=== PATIENT | male | born 1960 | race Caucasian/White ===

== ENCOUNTER 2019-03-22 12:30 | Outpatient (CLI) | payer MEDICARE, SELFPAY ==
--- NOTE | 2019-03-22 | US_ITS ---
WS: [id number] ULTRASOUND ABDOMEN CLINICAL INFORMATION: ELEVATED LIVER ENZYMES COMPARISON: None. FINDINGS: Technically difficult examination due to body habitus. Liver Size: Enlarged Craniocaudal length: 24.3 cm. Echogenicity: Coarse echogenicity consistent with fatty infiltration Surface nodularity: None. Mass (size and location): None. Bile ducts Intrahepatic ducts: Normal. Common bile duct diameter: 3.8 mm. Gallbladder Normal. Gallstones: None. Gallbladder sludge: None. Gallbladder wall thickening: None. Pericholecystic fluid: None. Sonographic Gomez sign: Absent. Pancreas Not well seen Right kidney: Normal. Hydronephrosis: None. Size: 13.8 cm x 6.4 cm x 6.0 cm Abdominal aorta and IVC Visualized portions are normal. Ascites: None. US/US liver [id number] IMPRESSION: 1. Hepatomegaly with diffuse fatty infiltration. 2. Gallbladder is normal. 3. Normal common bile duct. 4. No hydronephrosis in right kidney.
== END 2019-03-22 12:31 | disposition home or self-care (01) ==
LOC: RADOUTREAD 12:31
PROVIDERS: Family Provider Family Medicine; Visit Provider Nurse Practitioner Family
DX: K76.0 Fatty (change of) liver, not elsewhere classified (principal); R74.8 Abnormal levels of other serum enzymes
CPT/HCPCS: 76705

== ENCOUNTER → 2021-09-02 13:16 | Outpatient (BNVA) | payer MEDICARE, SELFPAY | PROVIDERS: Family Provider Family Medicine; PCP Nurse Practitioner Family; Visit Provider Thoracic Surgery (Cardiothoracic Vascular Surgery) | DX: L53.9 Erythematous condition, unspecified (principal); R23.4 Changes in skin texture | CPT/HCPCS: 99203; 99213 ==

== ENCOUNTER → 2021-09-14 14:40 | Outpatient (BNVA) | payer MEDICARE, SELFPAY | PROVIDERS: Family Provider Family Medicine; PCP Nurse Practitioner Family; Visit Provider Thoracic Surgery (Cardiothoracic Vascular Surgery) | DX: L53.8 Other specified erythematous conditions (principal) | CPT/HCPCS: 99212 ==

== ENCOUNTER 2021-09-30 12:26 | Outpatient (CLI) | payer MEDICARE, SELFPAY ==
--- NOTE | 2021-09-30 12:45 | USCV_ITS ---
Campos Olivo Age: 61 Gender: M : 1960 Exam Date: 09/30/2021 12:40 Ordering Phys: Werner Edwards MD (Andy) ([email or web address]) Technologist: Cordell Quevedo [place]am [place] [facility] [place]: cellulitis. Hx of DVT in right lower extremity per patient. Patient is on aspirin PROCEDURES: Venous duplex imaging was performed in only the right lower extremity. The following venous structures were evaluated: common femoral vein, profunda vein, proximal portion of the greater saphenous vein, superficial femoral vein, and the popliteal vein. In addition, the posterior tibial and peroneal trunk were evaluated. Serial compression, augmentation maneuvers, and spectral Doppler flow evaluation were performed. FINDINGS: Partially duplicated right SFV beginning in mid vein throught the popliteal vein. Acute DVT noted in one of the veins from the SFV distal through the popliteal vein . The other vein from SFV distal to pop appears free of thrombus at this time. Peroneal vein with nonocclusive thrombus. SSV in the right lower extremity is occluded with thrombus. All other veins examined appear to be free of thrombus at this time. 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 Occlusive superficial thrombophlebitits SSv. Partial occlusion with DVT peroneal vein. Report called to Dr. Edwards. Dr. Brandy Castro DO (Electronically Signed) Final Date: 30 September 2021 13:22 S
== END 2021-09-30 12:27 | disposition home or self-care (01) ==
LOC: RAD 12:26
PROVIDERS: PCP Nurse Practitioner Family; Visit Provider Thoracic Surgery (Cardiothoracic Vascular Surgery)
DX: L03.115 Cellulitis of right lower limb (principal); I82.451 Acute embolism and thrombosis of right peroneal vein
CPT/HCPCS: 93971

== ENCOUNTER 2022-12-03 11:45 | Emergency (ER) | payer OTHER, SELFPAY ==
[2022-12-03 12:05] VITALS: BP 149/87; PULSE 65; RESP 17; TEMP 36.8; O2SAT 95; BMI 37.4
[2022-12-03 12:40] VITALS: BP 155/90; PULSE 72; RESP 26; O2SAT 96
--- NOTE | 2022-12-03 12:45 | XR_ITS ---
WS: [id number] Portable AP upright chest, 12/03/2022 Clinical Data: dyspnea/cough Comparison: None. Findings: There is a patchy opacity in the right midlung which may represent atelectasis and less lik elan pneumonia. There is patchy opacity at both cardiophrenic angles which probably represent cardioph renic fat pads or cysts. The heart is normal. No nodules, masses or effusions are seen. Monitor leads are on the chest wall. Impression: Patchy right midlung opacity which could represent minimal pneumonia and/or atelectasis.
[2022-12-03 12:53] LABS: Basophils % 0.2 %; Eosinophils % 0.1 %; Hematocrit 45.9 % (37-53); Lymphocytes # 1.7 10^3/uL (0.8-4.8); Lymphocytes % 10.2 %; Mean Corpuscular HGB Conc 33.3 g/dL (30-55); Mean Corpuscular Hemoglobin 31.9 pg (27-33); Mean Corpuscular Volume 95.8 fl (82-101); Mean Platelet Volume 10.9 fL (7.4-10.4); Monocytes # 0.9 10^3/uL (0.2-0.9); Monocytes % 5.3 %; Neutrophils # 13.51 10^3/uL (1.8-7.7); Neutrophils % 79.8 %; Nucleated Red Blood Cells % 0 %; Platelet Count 148 10^3/cmm (157-399); Red Blood Count 4.79 10^6/uL (3.85-5.65); Red Cell Distribution Width 14.1 % (12.1-15.1); White Blood Count 16.93 10^3/uL (3.29-11.43)
[2022-12-03 13:10] LABS: Alanine Aminotransferase 219 U/L (0-41); Albumin Level 3.7 g/dL (3.5-5.2); Alkaline Phosphatase 275 U/L (40-130); Anion Gap 15.6 (5-19); Aspartate Amino Transferase 100 U/L (0-40); Blood Urea Nitrogen 12 mg/dL (8-23); Calcium 8.9 mg/dL (8.5-10.5); Carbon Dioxide 28 mmol/L (22-29); Chloride 101 mmol/L (98-107); Globulin 3.1 g/dL (1.3-4.6); Glomerular Filtration Rate 167.9 mL/min (90-130); Glucose 120 mg/dL (65-115); Osmolality Calculated 293 mOsm/kg (285-295); Potassium 3.6 mmol/L (3.5-5.1); Sodium 141 mmol/L (136-145); Total Bilirubin 0.7 mg/dL (0.15-1.2); Total Protein 6.8 g/dL (6.6-8.7)
--- NOTE | 2022-12-03 13:17 | W.ED.SOB ---
HPI - SOB/Dyspnea General: Chief Complaint: Shortness of Breath/Dyspnea Stated Complaint: doc sent him for a Infusione Time Seen by Provider: 12/03/22 12:45 Source: patient Mode of arrival: ambulatory History of Present Illness: HPI Narrative: 59-year-old male presents emergency room with cough and shortness of breath for the last several days he was concerned he had been exposed to black mold. No fevers sweats or chills. Cough has been nonproductive denies chest pain or abdominal pain MD elicited complaint: shortness of breath and cough Pertinent past history: COPD and congestive heart failure Severity: mild Exacerbating factors: exertion and coughing Relieving factors: nothing Associated symptoms: Deny abdominal pain, chest congestion, chest pain, cough, diaphoresis, dizziness, extremity pain, fever(s), hemoptysis, lightheadedness, myalgias, nausea, orthopnea, palpitations, paresthesias, polydipsia, polyuria, rash, sense of impending doom, syncope or vomiting Treatment prior to arrival: none Review of Systems Const: Reports: fatigue; Denies: fever(s), chills or diaphoresis ENMT: Denies: throat pain, ear or mastoid pain, nasal discharge or nasal congestion Card: Denies: chest pain, palpitations, lightheadedness, syncope or orthopnea Resp: Reports: dyspnea, non-productive cough and wheezing; Denies: hemoptysis or chest congestion GI: Denies: abdominal pain, nausea or vomiting : Denies: flank pain, dysuria, urinary frequency or urinary urgency Musc: Denies: extremity pain Skin/Breast: Denies: rash or pruritus Neuro: Denies: dizziness Endo: Denies: polyuria or polydipsia PFSH ED PFSH: Social History Smoking and tobacco status: former smoker Physical Exam Const: GENERAL APPEARANCE: cooperative and comfortable ORIENTATION/CONSCIOUSNESS: Yes awake, Yes oriented to person, Yes oriented to place and Yes oriented to time HENMT: COMMON NORMALS: normocephalic, atraumatic and hearing grossly normal bilaterally HEAD & SCALP: normocephalic and atraumatic Resp: COMMON NORMALS: normal respiratory effort, No retractions and No use of accessory muscles AUSCULTATION: rhonchi and wheezes Cardio: COMMON NORMALS: regular rate, regular rhythm and No murmurs present (Cardio) RATE: regular rate RHYTHM: regular rhythm GI: COMMON NORMALS: Soft to palpation and No hepatosplenomegaly present AUSCULTATION: Yes normoactive bowel sounds PALPATION: Yes Soft to palpation, No Tenderness to palpation present (GI), No Guarding due to palpation present (GI) and Yes No hepatosplenomegaly present Extremity: COMMON NORMALS: normal to inspection, capillary refill normal, no clubbing, cyanosis or edema, no calf tenderness and no pedal edema Neuro: SENSORIUM/ORIENTATION: Yes oriented to person, Yes oriented to place and Yes oriented to time Skin: COMMON NORMALS: no rashes or lesions noted GENERAL SKIN EXAM: no rashes or lesions noted Course Vital Signs: Vital signs: Vital Signs Temperature 98.3 F 12/03/22 12:05 Pulse Rate 69 12/03/22 14:35 Respiratory Rate 18 12/03/22 14:35 Blood Pressure 156/97 12/03/22 14:22 Pulse Oximetry 97 12/03/22 14:35 Oxygen Delivery Me thod Room Air 12/03/22 14:35 MDM - SOB/Dyspnea Medical Decision Making Mild pneumonia on x-ray White count elevated but clinically patient is tolerating well sats are good on room air vital signs otherwise stable treat as an outpatient discharge home with oral antibiotics Augmentin albuterol Tylenol or Profen as needed for other symptoms return if has worsening of any of his symptoms. Medical Records I reviewed the patient's medical records. Lab Data I reviewed the patient's lab results. 12/03/22 12:41 12/03/22 12:41 Labs/Radiology: Laboratory Results WBC 16.93 10^3/uL (3.29-11.43) H 12/03/22 12:41 RBC 4.79 10^6/uL (3.85-5.65) 12/03/22 12:41 Hgb 15.30 g/dL (11.27-16.99) 12/03/22 12:41 Hct 45.9 % (37-53) 12/03/22 12:41 MCV 95.8 fl (82-101) 12/03/22 12:41 MCH 31.9 pg (27-33) 12/03/22 12:41 MCHC 33.3 g/dL (30-55) 12/03/22 12:41 RDW 14.1 % (12.1-15.1) 12/03/22 12:41 Plt Count 148 10^3/cmm (157-399) L 12/03/22 12:41 MPV 10.9 fL (7.4-10.4) H 12/03/22 12:41 Neut % (Auto) 79.8 % 12/03/22 12:41 Lymph % (Auto) 10.2 % 12/03/22 12:41 Brule % (Auto) 5.3 % 12/03/22 12:41 Eos % (Auto) 0.1 % 12/03/22 12:41 Baso % (Auto) 0.2 % 12/03/22 12:41 Neut # (Auto) 13.51 10^3/uL (1.8-7.7) H 12/03/22 12:41 Lymph # (Auto) 1.7 10^3/uL (0.8-4.8) 12/03/22 12:41 Brule # (Auto) 0.9 10^3/uL (0.2-0.9) 12/03/22 12:41 Eos # (Auto) 0.0 10^3/uL (0.0-0.8) 12/03/22 12:41 Baso # (Auto) 0.0 10^3/uL (0.0-0.1) 12/03/22 12:41 Nucleated RBC % (auto) 0 % 12/03/22 12:41 Nucleated RBCs # 0.0 /100WBC 12/03/22 12:41 Sodium 141 mmol/L (136-145) 12/03/22 12:41 Potassium 3.6 mmol/L (3.5-5.1) 12/03/22 12:41 Chloride 101 mmol/L (98-107) 12/03/22 12:41 Carbon Dioxide 28 mmol/L (22-29) 12/03/22 12:41 Anion Gap 15.6 (5-19) 12/03/22 12:41 BUN 12 mg/dL (8-23) 12/03/22 12:41 Creatinine 0.5 mg/dL (0.7-1.2) L 12/03/22 12:41 GFR Calculation 167.9 mL/min (90-130) H 12/03/22 12:41 Glucose 120 mg/dL (65-115) H 12/03/22 12:41 Calculated Osmolality 293 mOsm/kg (285-295) 12/03/22 12:41 Calcium 8.9 mg/dL (8.5-10.5) 12/03/22 12:41 Total Bilirubin 0.7 mg/dL (0.15-1.2) 12/03/22 12:41 AST 100 U/L (0-40) H 12/03/22 12:41 ALT 219 U/L (0-41) H 12/03/22 12:41 Alkaline Phosphatase 275 U/L (40-130) H 12/03/22 12:41 Total Protein 6.8 g/dL (6.6-8.7) 12/03/22 12:41 Albumin 3.7 g/dL (3.5-5.2) 12/03/22 12:41 Globulin 3.1 g/dL (1.3-4.6) 12/03/22 12:41 All radiology interpretation(s) finalized by discharge Discharge Plan Discharge Patient Disposition: Home Clinical Impression: Pneumonia Condition: Stable Prescriptions: New amoxicillin-pot clavulanate 875-125 mg tablet 1 tab PO BID Qty: 14 0RF albuterol sulfate 90 mcg/actuation HFA aerosol inhaler 2 inh INHALATION Q4H PRN (Reason: shortness of breath or wheezing) Qty: 18 0RF No Action cyclobenzaprine 10 mg tablet 10 mg PO TID PRN (Reason: Muscle Spasm) furosemide 40 mg tablet 40 mg PO DAILY levothyroxine 125 mcg capsule 125 mcg PO DAILY lisinopril 20 mg tablet 20 mg PO DAILY Xarelto 10 mg tablet 10 mg PO DAILY Qty: 90 0RF potassium chloride 20 mEq tablet extended release 20 meq PO DAILY albuterol sulfate 90 mcg/actuation HFA aerosol inhaler 2 puff INHALATION Q4H PRN (Reason: Shortness Of Breath Or Wheezing) Tylenol PM Extra Strength 25-500 mg Tablet 2 tab PO Q6H PRN (Reason: Pain) Tylenol 325 mg Capsule 650 mg PO QID PRN (Reason: Pain) Discharge Orders: Discharge ED (Routine); Ordered 12/03/22 Ordered By: Cornel Hernandez Referrals: Danielle Winston FNP [Primary Care Provider] - Discharge Diet: Usual diet Discharge Activity: Increase activity as tolerated Patient Instructions: Opioid Safety, Pain Management Activity Restrictions/Additional Instructions: Follow-up with your primary care doctor in the next 10 to 14 days for repeat chest x-ray return to the emergency room or your primary care doctor if your symptoms do not begin to improve Coding Level of Care Code ED Certified Professional Controller for Tono Baldwin
[2022-12-03 13:53] VITALS: BP 152/82; PULSE 67; RESP 18; O2SAT 96
[2022-12-03 14:22] VITALS: BP 156/97; PULSE 66; RESP 18; O2SAT 95
[2022-12-03] MEDS: ipratropium-albuterol 3 mL Neb INHALATION (14:28)
[2022-12-03 14:29] VITALS: PULSE 63; RESP 18; O2SAT 94
[2022-12-03 14:35] VITALS: PULSE 69; RESP 18; O2SAT 97
== END 2022-12-03 14:43 | disposition home or self-care (01) ==
PROVIDERS: Emergency Provider Family Medicine; PCP Nurse Practitioner Family
DX: J18.9 Pneumonia, unspecified organism (principal); Z87.891 Personal history of nicotine dependence
CPT/HCPCS: 71045; 80053; 85025; 94640; 99284

== ENCOUNTER 2022-12-20 10:54 | Inpatient (IN) | payer MEDICARE, OTHER, SELFPAY ==
[2022-12-20] VITALS (11 sets, daily range): BP systolic 120–170; BP diastolic 64–104; PULSE 79–96; RESP 16–23; TEMP 36.6–36.8; O2SAT 90–96; BMI 37.3
--- NOTE | 2022-12-20 11:11 | XRR_ITS ---
PROCEDURE INFORMATION: Exam: XR Chest Exam date and time: 12/20/2022 11:17 AM Age: 62 years old Clinical indication: Shortness of breath; Patient HX: Swelling; Additional info: SOB TECHNIQUE: Imaging protocol: Radiologic exam of the chest. Views: 1 view. COMPARISON: CR XR chest 1V portable [id number] 12/03/2022 12:54 PM FINDINGS: Lungs: There is mild pulmonary vascular congestion. Pleural spaces: There appears to be a small loculated effusion again seen in the minor fissure of the right lung. Heart/Mediastinum: Unremarkable. No cardiomegaly. Bones/joints: Unremarkable. XR/XR chest 1V portable [id number] IMPRESSION: 1. Mild pulmonary vascular congestion. 2. Small loculated effusion in the minor fissure of the right lung.
[2022-12-20 11:32] LABS: Hematocrit 44.9 % (37-53); Mean Corpuscular Hemoglobin 31.6 pg (27-33); Mean Corpuscular Volume 95.7 fl (82-101); Mean Platelet Volume 11.9 fL (7.4-10.4); Platelet Count 143 10^3/cmm (157-399); Red Blood Count 4.69 10^6/uL (3.85-5.65); Red Cell Distribution Width 15.1 % (12.1-15.1); White Blood Count 15.04 10^3/uL (3.29-11.43)
[2022-12-20 11:42] LABS: Slide Review Slide Review Perform
[2022-12-20 11:45] LABS: Absolute Segmented Neutrophil 11.3 10/cmm (1.6-7.1); Band Neutrophils Absolute 1.5 10^3/cmm (0.0-1.2); Lymphocytes 7 %; Monocytes Absolute 0.9 10^3/cmm (0.1-0.6); Segmented Neutrophils 75 %; Total Cells Counted 100 (0-100)
[2022-12-20 11:46] LABS: Eosinophils 0 %; Lymphocytes Absolute 1.1 10^3/cmm (1.2-3.4)
[2022-12-20 11:47] LABS: Absolute Neutrophil 12.8 10^3/cmm (1.4-6.5); Anisocytosis Trace; Platelet Estimate Normal (Normal); Poikilocytosis Trace
[2022-12-20 12:05] LABS: Alanine Aminotransferase 145 U/L (0-41); Albumin Level 3.1 g/dL (3.5-5.2); Alkaline Phosphatase 303 U/L (40-130); Anion Gap 14.8 (5-19); Aspartate Amino Transferase 93 U/L (0-40); Blood Urea Nitrogen 20 mg/dL (8-23); Carbon Dioxide 33 mmol/L (22-29); Chloride 94 mmol/L (98-107); Globulin 2.8 g/dL (1.3-4.6); Glomerular Filtration Rate 85.2 mL/min (90-130); Glucose 160 mg/dL (65-115); NT Pro B Type Natriuretic Pept 397 pg/mL (0-125); Osmolality Calculated 294 mOsm/kg (285-295); Sodium 139 mmol/L (136-145); Total Bilirubin 5.6 mg/dL (0.15-1.2); Total Protein 5.9 g/dL (6.6-8.7)
[2022-12-20 12:09] LABS: Potassium 2.8 mmol/L (3.5-5.1)
--- NOTE | 2022-12-20 13:00 | US_ITS ---
WS: [id number] ULTRASOUND ABDOMEN LIMITED CLINICAL INFORMATION: elevated liver enzyme COMPARISON: None. FINDINGS: Liver Size: Enlarged craniocaudal length: 22.2 cm. Mass (size and location): Innumerable targetoid type lesions throughout the liver suspicious for meta static disease. Recommend correlation with history of malignancy. Bile ducts Intrahepatic ducts: Normal. Common bile duct diameter: 0.4 cm. Gallbladder Normal. Gallstones: None. Gallbladder sludge: None. Gallbladder wall thickening: None. Pericholecystic fluid: None. Sonographic Gomez sign: Absent. Pancreas Normal as visualized. Right kidney: Normal. Hydronephrosis: None. Size: 12.7 cm x 5.4 cm x 5.7 cm. Abdominal aorta and IVC Visualized portions are normal. Ascites: None. IMPRESSION: 1. Innumerable targetoid lesions throughout the liver suspicious for diffuse hepatic metastatic dise ase with hypoechoic halo. Recommend correlation with history of malignancy. This could be further jason luated with contrast-enhanced CT abdomen pelvis 2. Normal gallbladder.
[2022-12-20] MEDS: potassium chloride ER 20 mEq Tablet 40 MEQ PO ×2 (13:21→18:33)
[2022-12-20] MEDS: potassium chloride premix 100 ML 50 MEQ IV (13:23)
--- NOTE | 2022-12-20 13:39 | ECG_ITS ---
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 Measurements Intervals [place] Rate: 83 P: 59 SD: 147 QRS: -52 QRSD: 93 T: 55 QT: 339 QTc: 399 Interpretive Statements SINUS RHYTHM POSSIBLE LEFT ATRIAL ENLARGEMENT [-0.1mV P-WAVE IN V1/V2] LEFT ANTERIOR FASCICULAR BLOCK [QRS AXIS <= -45, QR IN I, RS IN II] NONSPECIFIC ST & T-WAVE ABNORMALITY WARNING: DATA QUALITY MAY AFFECT INTERPRETATION No previous ECG available for comparison Electronically Signed On 12-20-2022 23:16:53 CDT by Jeff Brownlee M.D. [id number]
--- NOTE | 2022-12-20 14:19 | CT_ITS ---
WS: [id number] CT ABDOMEN PELVIS TECHNIQUE: Contrast-enhanced CT of the abdomen and pelvis with coronal and sagittal reformatted image s. CLINICAL INFORMATION: abnormal us COMPARISON: None. DLP: 1278.[address] scans at [facility] use at least one of these dose optimization techniques: automated e xposure control; mA and/or kV adjustment per patient size (includes targeted exams where dose is matc hed to clinical indication); or iterative reconstruction. FINDINGS: Trace RIGHT pleural fluid. Slight atelectasis RIGHT lower lobe. Slight nodularity along the diaphragm . Small nodule RIGHT lower lobe medially measuring 5 mm. Hepatomegaly. Innumerable heterogeneous lesions throughout both hepatic lobes most compatible with me tastatic disease. Slight nodular contour to the liver. Slight perihepatic ascites. Normal spleen. Nor mal GE junction. Thickening of the adrenal glands bilaterally. Normal pancreatic parenchymal enhancem ent. Gallbladder is contracted. Fat-containing umbilical hernia. Normal caliber abdominal aorta. Enlarged RIGHT aortocaval and mic hepatis lymphadenopathy. Prominen t lymph nodes along the celiac. Enlarged RIGHT common iliac lymph node. A few enlarged LEFT retroperi toneal lymph nodes. Bilateral renal cortical atrophy. Small LEFT renal cysts. Normal renal parenchymal enhancement. No hy dronephrosis in either kidney. Retroaortic LEFT renal vein. Mild diffuse body wall anasarca. Ankylos is lower thoracic and lumbar spine. Slightly prominent RIGHT greater than LEFT inguinal lymph nodes. IMPRESSION: 1. Innumerable heterogeneous enhancing lesions throughout both hepatic lobes likely due to metastati c disease. Hepatomegaly. 2. Upper abdominal, aortocaval and retroperitoneal lymphadenopathy described above. 3. No hydronephrosis in either kidney. 4. Mild diffuse body wall anasarca. 5. Fat-containing umbilical hernia.
[2022-12-20] MEDS: iohexol 350 mg/mL 500 mL Btl (per mL) IV (14:26)
[2022-12-20 14:36] LABS: Ammonia 53 umol/L (16-60)
[2022-12-20 14:40] LABS: Glucose Urine UA Norm (Normal); Protein Urine 1+ (Negative); Specific Gravity, Urine 1.015 (1.005-1.030); Urine Appearance SL Hazy (CLEAR); Urine Color Brown (Yellow); pH Urine 5 (5-7)
[2022-12-20 14:41] LABS: Add Urine Culture? No; Add Urine Microscopic? YES; Bacteria Urine TRACE /hpf; Bilirubin Urine 3+ (Negative); Blood Urine Trace (Negative); Ketones Urine 1+ (Negative); Leukocyte Esterase Urine Trace (Negative); Nitrate Urine Negative (Negative); RBC Urine 0-4 /hpf (0-2); Urobilinogen Urine 8 mg/dL (Negative); WBC Urine 0-4 /hpf (0-5)
--- NOTE | 2022-12-20 14:48 | ED_ITS ---
HPI - Extremity Problem General: Chief complaint: Extremity Problem,Nontraumatic Stated complaint: legs swollen, sob, weakness Time Seen by Provider: 12/20/22 12:38 History of Present Illness: 62-year-old male with complex medical history including hypertension, CHF, thyroid disorder, history of alcohol abuse and DVT. Patient presents emergency room with sister who reveals that patient has been having significant leg swelling with some fatigue within the past few weeks. Evaluated few weeks ago in this ER and was diagnosed with pneumonia. Patient was discharged home with oral antibiotics which she completed without any complication. Cystoscopy reveals the patient did not improved sit significantly after the treatment but shows more concerned today because of the leg swelling. Patient denies any shortness of breath, chest pain, coughing up blood or vomiting blood. No sick contact recent foreign travel. No fever or chills. Review of Systems General: Reports: 10 or more systems reviewed and unremarkable except in HPI and below Const: Reports: chills, fatigue and malaise; Denies: diaphoresis or change in sleep pattern Card: Reports: edema, swelling of feet/ankles and dyspnea on exertion; Denies: irregular heart rhythm, syncope, pre-syncope or acrocyanosis Resp: Reports: dyspnea; Denies: productive cough, non-productive cough, wheezing or stridor GI: Denies: abdominal pain, nausea, vomiting or hematemesis : Denies: flank pain, difficulty urinating, dysuria, urinary urgency or urinary dribbling Neuro: Denies: headache(s), numbness in extremities, weakness in extremities or sensory changes PFS ED PFSH: Medical History (Updated 12/20/22 @ 18:17 by Darren López MD) Alcohol abuse 24 oz Smirnoff DVT (deep venous thrombosis) HTN (hypertension) Hypothyroid Lymphedema Surgical History (Updated 12/20/22 @ 18:17 by Darren López MD) H/O laminectomy Family History (Updated 12/20/22 @ 18:19 by Darren López MD) Other Cancer Hypertension Social History (Updated 12/20/22 @ 18:18 by Darren López MD) Smoking and tobacco/nicotine status: former use of tobacco/nicotine Alcohol intake: current Substance/Drug Use: current Substance/Drug use type: Marijuana Caregiver/support person: Yes Lives independently: Yes Household members: none Housing: House Marital status: Single Physical Exam Const: COMMON NORMALS: no acute distress, average body habitus, patient oriented x3, no limitations, healthy appearing, alert and well nourished HENMT: COMMON NORMALS: normocephalic, atraumatic, hearing grossly normal bilaterally, external ears normal, EAC's normal, TM's normal bilaterally, Normal external nose present, Normal nasal mucous membranes and turbinates present, mo ist oral mucous membranes, oropharynx normal, dentition normal and gingiva normal HEAD & SCALP: normocephalic and atraumatic NOSE: Normal external nose present and Normal nasal mucous membranes and turbinates present EXTERNAL EAR: Yes external ears normal EXTERNAL AUDITORY CANAL: EAC's normal TYMPANIC MEMBRANE: TM's normal bilaterally Neck/C-Spine: COMMON NORMALS: no JVD Chest: COMMONS NORMALS: normal inspection of the chest, normal palpation of entire chest wall, normal inspection of the breasts and normal palpation of the breasts Breast/axilla inspection: Yes normal inspection of the breasts BREAST/AXILLA PALPATION: Yes normal palpation of the breasts Resp: COMMON NORMALS: normal respiratory effort, No retractions, No use of accessory muscles, clear to auscultation bilaterally and percussion normal AUSCULTATION: clear to auscultation bilaterally PERCUSSION: percussion normal Cardio: COMMON NORMALS: no JVD, regular rate, regular rhythm, S1 normal heart sound present, S2 normal heart sound present, No gallops present (Cardio), No clicks present (Cardio), No murmurs present (Cardio), No rub (Cardio) and Peripheral pulses 2+ throughout RATE: regular rate RHYTHM: regular rhythm HEART SOUNDS: S1 normal heart sound present and S2 normal heart sound present PERIPHERAL PULSES: Peripheral pulses 2+ throughout GI: INSPECTION: Yes Anasarca Extremity: GENERAL: Yes edema (4+ pitting edema) Neuro: COMMON NORMALS: patient oriented x3 SENSORIUM/ORIENTATION: Yes alert Psych: COMMON NORMALS: mental status grossly normal Skin: COMMON NORMALS: no rashes or lesions noted, no wounds, turgor normal, no jaundice, no petechiae and no mottling GENERAL SKIN EXAM: no rashes or lesions noted and turgor normal Course Vital Signs: Vital signs: Vital Signs Temperature 97.8 F 12/20/22 19:52 Pulse Rate 94 12/20/22 21:54 Respiratory Rate 16 12/20/22 21:54 Blood Pressure 120/81 12/20/22 19:52 Pulse Oximetry 93 12/20/22 21:54 Oxygen Delivery Me thod Room Air 12/20/22 22:10 MDM - Extremity (Nontraumatic) Medical Decision Making Patient made comfortable emergency room I discussed current plan with sister. Patient had extensive work-up including CBC, CMP, CT scan, chest x-ray. I discussed all lab finding with patient and sister. Patient will be admitted for further evaluation and treatment. I discussed patient with hospitalist. Differential Diagnosis Likely herpes zoster, cellulitis, superficial thrombophlebitis and deep venous thrombosis of upper extremity Lab Data 12/20/22 11:25 12/20/22 18:07 Radiology Impressions Chest X-Ray 12/20/22 11:11 IMPRESSION: 1. Mild pulmonary vascular congestion. 2. Small loculated effusion in the minor fissure of the right lung. Laboratory Results WBC 15.04 10^3/uL (3.29-11.43) H 12/20/22 11:25 RBC 4.69 10^6/uL (3.85-5.65) 12/20/22 11:25 Hgb 14.80 g/dL (11.27-16.99) 12/20/22 11:25 Hct 44.9 % (37-53) 12/20/22 11:25 MCV 95.7 fl (82-101) 12/20/22 11:25 MCH 31.6 pg (27-33) 12/20/22 11:25 MCHC 33.0 g/dL (30-55) 12/20/22 11:25 RDW 15.1 % (12.1-15.1) 12/20/22 11:25 Plt Count 143 10^3/cmm (157-399) L 12/20/22 11:25 MPV 11.9 fL (7.4-10.4) H 12/20/22 11:25 Lymph % (Auto) Not Reportable 12/20/22 11:25 Anderson % (Auto) Not Reportable 12/20/22 11:25 Lymph # (Auto) Not Reportable 12/20/22 11:25 Anderson # (Auto) Not Reportable 12/20/22 11:25 Total Counted 100 (0-100) 12/20/22 11:25 Atypical Lymphs % 0.0 % (0-5) 12/20/22 11:25 Absolute Neutrophils 12.8 10^3/cmm (1.4-6.5) H 12/20/22 11:25 Segmented Neutrophils 75 % 12/20/22 11:25 Abs Segm Neuts (Man) 11.3 10/cmm (1.6-7.1) H 12/20/22 11:25 Band Neutrophils 10.0 % 12/20/22 11:25 Abs Band Neuts (Man) 1.5 10^3/cmm (0.0-1.2) H 12/20/22 11:25 Absolute Lymphocytes 1.1 10^3/cmm (1.2-3.4) L 12/20/22 11:25 Lymphocytes (Manual) 7 % 12/20/22 11:25 Monocytes (Manual) 6.0 % 12/20/22 11:25 Absolute Monocytes 0.9 10^3/cmm (0.1-0.6) H 12/20/22 11:25 Eosinophils (Manual) 0 % 12/20/22 11: Absolute Eosinophils 0.0 10^3/cmm (0.0-0.7) 12/20/22 11:25 Basophils (Manual) 0.0 % 12/20/22 11: Absolute Basophils 0.0 10^3/cmm (0.0-0.2) 12/20/22 11:25 Metamyelocytes 1.0 % 12/20/22 11:25 Myelocytes 1.0 % 12/20/22 11:25 Platelet Estimate Normal (Normal) 12/20/22 11:25 Poikilocytosis Trace 12/20/22 11:25 Anisocytosis Trace 12/20/22 11:25 Sodium 139 mmol/L (136-145) 12/20/22 11:25 Potassium 2.8 mmol/L (3.5-5.1) L* 12/20/22 11:25 Chloride 94 mmol/L (98-107) L 12/20/22 11:25 Carbon Dioxide 33 mmol/L (22-29) H 12/20/22 11:25 Anion Gap 14.8 (5-19) 12/20/22 11:25 BUN 20 mg/dL (8-23) 12/20/22 11:25 Creatinine 0.9 mg/dL (0.7-1.2) 12/20/22 11:25 GFR Calculation 85.2 mL/min (90-130) L 12/20/22 11:25 Glucose 160 mg/dL (65-115) H 12/20/22 11:25 Calculated Osmolality 294 mOsm/kg (285-295) 12/20/22 11:25 Calcium 9.0 mg/dL (8.5-10.5) 12/20/22 11:25 Magnesium 2.3 mg/dL (1.7-2.3) 12/20/22 11:25 Iron 96 ug/dL (59-158) 12/20/22 11:25 TIBC 184 mcg/dl 12/20/22 11:25 % Saturation 52.1 % (20-50) H 12/20/22 11:25 Unsat Iron Binding 88 ug/dL (112-347) L 12/20/22 11:25 Total Bilirubin 5.6 mg/dL (0.15-1.2) H 12/20/22 11:25 AST 93 U/L (0-40) H 12/20/22 11:25 ALT 145 U/L (0-41) H 12/20/22 11:25 Alkaline Phosphatase 303 U/L (40-130) H 12/20/22 11:25 Ammonia 53 umol/L (16-60) 12/20/22 14:05 NT-Pro-B Natriuret Pep 397 pg/mL (0-125) H 12/20/22 11:25 Total Protein 5.9 g/dL (6.6-8.7) L 12/20/22 11:25 Albumin 3.1 g/dL (3.5-5.2) L 12/20/22 11:25 Globulin 2.8 g/dL (1.3-4.6) 12/20/22 11:25 Procalcitonin 76.29 ng/mL (0-0.5) H 12/20/22 11:25 TSH 0.52 uIU/mL (0.27-4.20) 12/20/22 11:25 Urine Color Brown (Yellow) A 12/20/22 13:49 Urine Appearance Sl hazy (CLEAR) A 12/20/22 13:49 Urine pH 5 (5-7) 12/20/22 13:49 Ur Specific Manning 1.015 (1.005-1.030) 12/20/22 13:49 Urine Protein 1+ (Negative) H 12/20/22 13:49 Urine Glucose (UA) Norm (Normal) 12/20/22 13:49 Urine Ketones 1+ (Negative) H 12/20/22 13:49 Urine Blood Trace (Negative) H 12/20/22 13:49 Urine Nitrate Negative (Negative) 12/20/22 13:49 Urine Bilirubin 3+ (Negative) H 12/20/22 13:49 Urine Urobilinogen 8 mg/dL (Negative) H 12/20/22 13:49 Ur Leukocyte Esterase Trace (Negative) H 12/20/22 13:49 Urine RBC 0-4 /hpf (0-2) H 12/20/22 13:49 Urine WBC 0-4 /hpf (0-5) H 12/20/22 13:49 Ur Squamous Epith Cells None /hpf (0-5) 12/20/22 13:49 Amorphous Sediment Not Reportable 12/20/22 13:49 Urine Bacteria Trace /hpf (NONE) 12/20/22 13:49 Ethyl Alcohol < 10 mg/dL (0-10) 12/20/22 11:25 Hepatitis A IgM Ab Non-reactive (Nonreactive) 12/20/22 11:25 Hep Bs Antigen Non-reactive (Nonreactive) 12/20/22 11:25 Hep Bs Antibody 5.5 (11.5-1000) L 12/20/22 11:25 Hep B Core Total Ab Non-reactive (Nonreactive) 12/20/22 11:25 Hepatitis C Antibody Non-reactive (Nonreactive) 12/20/22 11:25 HIV 1&2 Ab & HIV 1 Ag Non-reactive (Non-Reactiv) 12/20/22 11:25 HIV 1&2 Antibody Non-reactive (Non-Reactiv) 12/20/22 11:25 XR interpretation done by ED provider, pending radiology final review EKG Data EKG 1: Interpretation: Sinus rhythm rate of [address] changes. TX interval 147. PT 339. Critical Care Time Critical Care Time: Critical Care Time: Yes Total Critical Care Time: 45 Attestation: Patient made comfortable emergency room and had extensive work-up including labs. Time spent reviewing labs and medical records from previous visit. Time spent discussing labs and patient care with sister and the hospitalist. Time spent reevaluate patient on multiple occasion after each treatment. Spent giving patient IV potassium. Discharge Plan Discharge Patient Disposition: Admitted As Inpatient Admit Provider: Darren López Clinical Impression: Edema, Acute hypokalemia, Leukocytosis, Hyperbilirubinemia, Transaminitis Condition: Stable Coding Level of Care Code ED Service Counter Cashier for Tono Baldwin
[2022-12-20 14:49] LABS: Magnesium 2.3 mg/dL (1.7-2.3)
--- NOTE | 2022-12-20 17:53 | USCV_ITS ---
Campos Olivo Age: 62 Gender: M : 1960 Exam Date: 12/20/2022 20:44 Ordering Phys: Darren López MD Technologist: INNA [place] [facility] [place]: evaluate for CHF. c/o chronic, bilateral lower extremity edema R>L. No history of cardiac intervention per patient. BP: 143 / 79 HR: 95 Rhythm: Sinus Technical Quality: Adequate MEASUREMENTS (Male / Female) Normal Values 2D ECHO LV Diastolic Diameter PLAX 4.4 cm 4.2 - 5.9 / 3.9 - 5.3 cm LV Systolic Diameter PLAX 3.0 cm IVS Diastolic Thickness 2.0 cm 0.6 - 1.0 / 0.6 - 0.9 cm IVS Systolic Thickness 2.8 cm LVPW Diastolic Thickness 1.6 cm 0.6 - 1.0 / 0.6 - 0.9 cm LVPW Systolic Thickness 2.2 cm LVOT Diameter 2.0 cm LV Ejection Fraction 2D Teich 59.4 % LV Ejection Fraction MOD 2C 66.4 % LV Ejection Fraction 2C AL 68.7 % LA Diameter 3.6 cm LA Width 2.5 cm LA Height 5.1 cm RA Width 2.9 cm RA Height 4.3 cm Aorta at Sinotubular Diameter 3.3 cm IVC Diameter 1.2 cm M-MODE Aortic Annulus Diameter 4.0 cm LA Ao Ratio MM 0.9 MV E Point Septal Separation 0.5 cm DOPPLER AV Peak Velocity 157.0 cm/s LVOT Peak Velocity 108.0 cm/s AV Area Cont Eq vti 2.3 cm squared AV Area Cont Eq pk 2.2 cm squared MV Area PHT 3.0 cm squared Mitral E to A Ratio 0.7 MV E' Velocity 35.0 cm/s Mitral E to MV E' Ratio 6.5 Mitral E to LV E' Lateral Ratio 5.3 Mitral E to LV E' Septal Ratio 8.5 TR Peak Velocity 233.0 cm/s TR Peak Gradient 21.7 mmHg TV Peak E Velocity 55.0 cm/s Right Atrial Pressure 5.0 mmHg Pulmonary Artery Systolic Pressu 26.7 mmHg PV Peak Velocity 103.0 cm/s RV Acceleration Time 0.1 s RV Ejection Time 0.3 s RV AcT/ET 0.3 FINDINGS Left Ventricle Normal left ventricular size, systolic function and increased wall thickness, with no regional wall motion abnormalities. Left ventricular ejection fraction is estimated at 70 %. Normal diastolic function. Right Ventricle Normal right ventricular size and systolic function. Right ventricular systolic pressure 25 mmHg. Right Atrium Normal right atrial size. Left Atrium Normal left atrial size. Mitral Valve Structurally normal mitral valve. No mitral valve stenosis. No mitral valve regurgitation. Aortic Valve Structurally normal trileaflet aortic valve. No aortic valve stenosis. No aortic valve regurgitation. Tricuspid Valve Structurally normal tricuspid valve. No tricuspid valve stenosis. Trace tricuspid valve regurgitation. Pulmonic Valve Structurally normal pulmonic valve. No pulmonary valve stenosis. Trace pulmonary valve regurgitation. Pericardium No thickening/calcification of the pericardium. Aorta Normal size aortic root and proximal ascending aorta. IVC Normal IVC dimension with >50% respiratory change of the inferior vena cava. CONCLUSIONS 1. Normal left ventricular size, systolic function and increased wall thickness, with no regional wall motion abnormalities. Left ventricular ejection fraction is estimated at 70 %. Normal diastolic function. 2. No significant valvular abnormality. 3. No prior similar studies to compare. Yumiko Mercer MD (Electronically Signed) Final Date: 21 December 2022 12:16 S
--- NOTE | 2022-12-20 17:53 | P.HP_ITS ---
Providers/Chief Complaint Admitting Physician: Darren López MD Primary Care Provider: LINH Grossman Chief Complaint: legs swollen, sob, weakness History of Present Illness Campos Olivo is a 62 year old male with past medical history of alcohol abuse though has not consumed alcohol over the last 2 weeks, hypertension, DVT on Xarelto for over last 1 year, bilateral lymphedema presented to the ER today because of generalized weakness, increasing swelling in his lower limbs over the last 10 days not responding to trial of oral Lasix as an outpatient. Patient otherwise denies any changes in his medications recently, difficulty in breathing but does complain of decreased appetite, increasing abdominal girth and difficulty to stand up because of increasing lower limb swelling. Denies any skin breakthrough though states he was in past seen by wound care and was recently put on antibiotics for possible pneumonia. He states he is to consume alcohol till around 2 weeks ago though has not consumed as he had to leave his house because of exposure to black mold. Review of Systems General: Reports: 10 or more systems reviewed and unremarkable except in HPI and below Const: Denies: fever(s), chills, body aches, change in appetite, change in weight, malaise, night sweats, diaphoresis, change in sleep pattern, daytime sleepiness or snoring Eyes: Denies: change in vision, blurry vision, photophobia, eye discomfort or eye discharge ENMT: Denies: throat pain, enlarged tonsils, hoarseness, mouth pain, oral sores, dry mouth, tinnitus, nasal congestion or post nasal drip Card: Denies: chest pain, palpitations, irregular heart rhythm, edema, swelling of feet/ankles, lightheadedness, syncope, pre-syncope, dyspnea on exertion, orthopnea, leg pain with exertion or acrocyanosis Resp: Denies: dyspnea, productive cough, non-productive cough, wheezing, stridor, pain on inspiration, change in phlegm color, hemoptysis or chest congestion GI: Denies: abdominal pain, nausea, vomiting, hematemesis, coffee ground emesis, dysphagia, heartburn, diarrhea, constipation, bloating, GI cramping, change in bowel habits, pain on defecation, hematochezia or melena : Denies: flank pain, difficulty urinating, dysuria, urinary frequency, urinary urgency, urinary hesitancy, urinary dribbling, difficulty starting urination, change in urine stream, nocturia or hematuria Musc: Denies: neck pain, back pain, extremity pain, joint pain, joint swelling, joint redness, joint stiffness or limited range of motion Neuro: Denies: headache(s), numbness in extremities, weakness in extremities, sensory changes, lack of coordination, difficulty walking, frequent falls, dizziness, vertigo, confusion, Slurred speech present, difficulty communicating thoughts or seizure-like activity Psych: Denies: anxiety, depression, mood swings, panic attacks, hopelessness or irritability Endo: Denies: polyuria, polydipsia, tired all the time, cold intolerance, excessive sweating, flushing or heat intolerance Josh/Lymph: Denies: easy bruising or easy bleeding All/Imm: Denies: tongue swelling, facial swelling or acute wheezing Medications/Allergies Home Medications Medication Instructions Recorded Confirmed Last Taken Type cyclobenzaprine 10 mg tablet 10 mg PO TID PRN Muscle Spasm 05/01/20 12/20/22 Unknown History levothyroxine 125 mcg capsule 125 mcg PO QAM 05/01/20 12/20/22 12/19/22 History lisinopril 20 mg tablet 20 mg PO QAM 05/01/20 12/20/22 12/19/22 History potassium chloride 20 mEq 20 meq PO QAM 12/11/21 12/20/22 12/19/22 History tablet,extended release acetaminophen 325 mg capsule 650 mg PO QID PRN Pain 12/03/22 12/20/22 12/02/22 History (Tylenol) albuterol sulfate 90 mcg/actuation 2 inh inhalation Q4H PRN shortness 12/03/22 12/20/22 Unknown Rx aerosol inhaler of breath or wheezing #18 grams diphenhydramine 25 2 tab PO QPM PRN Pain 12/03/22 12/20/22 Unknown History mg-acetaminophen 500 mg tablet (Tylenol PM Extra Strength) budesonide-formoterol HFA 160 1 inh inhalation BID 12/20/22 12/20/22 12/19/22 History mcg-4.5 mcg/actuation aerosol inhaler (Symbicort) doxycycline hyclate 100 mg capsule 100 mg PO BID 12/20/22 12/20/22 12/19/22 History furosemide 20 mg tablet 20 mg PO QAM 12/20/22 12/20/22 12/19/22 History loratadine 10 mg tablet (Claritin) 10 mg PO DAILY 12/20/22 12/20/22 12/19/22 History rivaroxaban 20 mg tablet (Xarelto) 20 mg PO QAM 12/20/22 12/20/22 12/19/22 History Allergies Allergy/AdvReac Type Severity Reaction Status Date / Time No Known Allergies Allergy Verified 12/11/21 16:40 PFSH Acute PFSH: Medical History (Updated 12/20/22 @ 18:17 by Darren López MD) Alcohol abuse 24 oz Smirnoff DVT (deep venous thrombosis) HTN (hypertension) Hypothyroid Lymphedema Surgical History (Updated 12/20/22 @ 18:17 by Darren López MD) H/O laminectomy Family History (Updated 12/20/22 @ 18:19 by Darren López MD) Other Cancer Hypertension Social History (Updated 12/20/22 @ 18:18 by Darren López MD) Smoking and tobacco/nicotine status: former use of tobacco/nicotine Alcohol intake: current Substance/Drug Use: current Substance/Drug use type: Marijuana Caregiver/support person: Yes Lives independently: Yes Household members: none Housing: House Marital status: Single Vitals/I&O/Wt Last Vital Signs Temp 98.2 F 12/20/22 10:59 Pulse 93 12/20/22 17:23 Resp 18 12/20/22 13:11 BP 143/79 12/20/22 17:23 Pulse Ox 91 12/20/22 17:23 O2 Del Method Room Air 12/20/22 17:23 Weight last 48 hrs Weight 128.367 kg Physical Exam Narrative: General: No acute distress, AO x3 HEENT: PERRLA, pupils bilaterally equal and reactive Chest: Normal vesicular breath sounds, no added sounds, equal good air entry b ilaterally CVS: S1-S2 regular, no murmurs, no tachycardia, no gallops, no rubs Abdomen: Soft, nontender, no organomegaly, bowel sounds present Neuro: No focal deficits, no facial deformity, AO x3, power 5/5 in all limbs Data 12/20/22 11:25 12/20/22 11:25 A&P Assessment and plan (1) Anasarca: Most likely in setting of chronic liver disorder though patient does have mild hypoalbuminemia. Cannot rule out mild congestive heart failure. Check echocardiogram. IV Lasix 80 mg one-time. Replete potassium. Dose Lasix as per fluid status of each day. Monitor electrolytes. Coleman catheterization. (2) Acute hypokalemia: Most likely in setting of home dose of Lasix. Repleted 80 mg in ER. Give 40 minutes once more. Monitor potassium daily for now. Replete accordingly. (3) Leukocytosis: With left shift. Unknown cause for now. No ascites. Patient does not localize any symptoms other than mild lower limb cellulitis. Check procalcitonin, blood culture. For now start on IV ceftriaxone. If patient remains hemodynamically stable and afebrile will discontinue antibiotics for next 24 hours and monitor. (4) Transaminitis: Patient does have history of chronic alcoholism. Appreciate gallbladder ultrasound and CT abdomen pelvis results. No gallbladder or pancreatic pathology. Does have echogenic opacities in all the lobes of the liver. Cannot rule out malignancy. Patient has a history of liver cancer in family. Check AFP, beta-hCG. Check HIV, hepatitis panel, LDH, GGT, alcohol level. Monitor daily for now. (5) DVT (deep venous thrombosis): Chronic. Continue home dose of Xarelto. Check lower limb Dopplers (6) Hyperbilirubinemia: Plan Hypothyroidism Obesity Full code Cardiac diet, fluid restriction Xarelto will suffice as DVT prophylaxis Protonix for PUD prophylaxis Attestations Medical Necessity Statement*: Admission for more than 2 midnights for management of anasarca with failure to outpatient therapy, generalized weakness in setting of acute hypokalemia while patient undergoes further work-up Diagnoses Anasarca R60.1 Acute hypokalemia E87.6 Leukocytosis D72.829 Transaminitis R74.01 DVT (deep venous thrombosis) I82.409 Hyperbilirubinemia E80.6
--- NOTE | 2022-12-20 18:23 | USCV_ITS ---
Campos Olivo Age: 62 Gender: M : 1960 Exam Date: 12/20/2022 20:21 Ordering Phys: Darren López MD Technologist: IN[employer] Exam Location: [facility] – [place] Indication: bilateral lower extremity edema, chronic R>L. History of RLE DVT 2002 HISTORY: bilateral lower extremity edema, chronic R>L. History of RLE DVT 2002 PROCEDURES: Venous duplex imaging was performed in bilateral lower extremities. The following venous structures were evaluated: common femoral vein, profunda vein, proximal portion of the greater saphenous vein, superficial femoral vein, and the popliteal vein. In addition, the posterior tibial veins were evaluated. Serial compression, augmentation maneuvers, and spectral Doppler flow evaluation were performed, which were normal. Bilaterally, the common femoral, superficial femoral, profunda femoral, popliteal, posterior tibial, and greater saphenous veins were identified and interrogated in the standard fashion. These veins were found to be easily compressible with spontaneous blood flow. No evidence of thrombus noted. CONCLUSIONS No evidence of left lower extremity DVT. No evidence of right lower extremity DVT. Tiago Alexandre MD (Electronically Signed) Final Date: 21 December 2022 09:46 S
[2022-12-20] MEDS: FUROsemide 10 mg/mL SDV 10mL 80 MG IVP (18:33)
[2022-12-20 18:40] LABS: Anion Gap 15.9 (5-19); Blood Urea Nitrogen 19 mg/dL (8-23); Calcium 8.5 mg/dL (8.5-10.5); Carbon Dioxide 32 mmol/L (22-29); Chloride 91 mmol/L (98-107); Creatinine Clr Calc Pharmacy 151.6882; Glomerular Filtration Rate 113.9 mL/min (90-130); Glucose 166 mg/dL (65-115); Osmolality Calculated 288 mOsm/kg (285-295); Sodium 136 mmol/L (136-145)
[2022-12-20 18:42] LABS: Potassium 2.9 mmol/L (3.5-5.1)
[2022-12-20 18:42] LABS: Alcohol Level < 10 mg/dL (0-10)
[2022-12-20 18:47] LABS: Procalcitonin 76.29 ng/mL (0-0.5)
[2022-12-20 19:29] LABS: HIV 1 & 2 Antibody Non-Reactive (Non-Reactiv); HIV 1 & 2 Antigen Non-Reactive (Non-Reactiv)
[2022-12-20 19:39] LABS: Iron 96 ug/dL (59-158); Percent Saturation 52.1 % (20-50); Thyroid Stimulating Hormone 0.52 uIU/mL (0.27-4.20); Total Iron Binding Capacity 184 mcg/dl; Unsaturated Iron Binding 88 ug/dL (112-347)
[2022-12-20 20:38] LABS: Hepatitis A Antibody IgM Non-Reactive (Nonreactive); Hepatitis B Core AB, Total Non-Reactive (Nonreactive); Hepatitis B Surface AB 5.5 (11.5-1000); Hepatitis B Surface Antigen Non-Reactive (Nonreactive); Hepatitis C Virus Antibody Non-Reactive (Nonreactive)
[2022-12-20 20:51] LABS: Lactate Dehydrogenase 535 U/L (135-225)
[2022-12-20 21:04] LABS: Gamma Glutamyl Transferase 1523 U/L (8-61)
[2022-12-20] MEDS: ipratropium-albuterol 3 mL Neb INHALATION (21:53)
[2022-12-20] MEDS: cefTRIAXone 1,000 MG in sodium chloride 0.9% (plus) 50 ML 100 MG IV (22:10)
[2022-12-20] MEDS: pantoprazole 40 mg SDV IVP (22:11)
[2022-12-21] VITALS (16 sets, daily range): BP systolic 113–152; BP diastolic 68–106; PULSE 88–99; RESP 16–30; TEMP 36.4–37.1; O2SAT 88–95
[2022-12-21 00:47] LABS: Vitamin B12 716 pg/mL (232-1245)
[2022-12-21] MEDS: ipratropium-albuterol 3 mL Neb INHALATION ×3 (02:45→13:13)
[2022-12-21 05:08] LABS: Basophils # 0.1 10^3/uL (0.0-0.1); Basophils % 0.4 %; Eosinophils # 0.2 10^3/uL (0.0-0.8); Eosinophils % 1.5 %; Hematocrit 41.8 % (37-53); Lymphocytes # 1.6 10^3/uL (0.8-4.8); Lymphocytes % 10.1 %; Mean Corpuscular Hemoglobin 31.7 pg (27-33); Mean Corpuscular Volume 95.9 fl (82-101); Mean Platelet Volume 11.6 fL (7.4-10.4); Monocytes # 0.5 10^3/uL (0.2-0.9); Monocytes % 3.4 %; Neutrophils # 12.15 10^3/uL (1.8-7.7); Nucleated Red Blood Cells # 0.1 /100WBC; Nucleated Red Blood Cells % 0.6 %; Platelet Count 131 10^3/cmm (157-399); Red Blood Count 4.36 10^6/uL (3.85-5.65); Red Cell Distribution Width 15.2 % (12.1-15.1); White Blood Count 15.79 10^3/uL (3.29-11.43)
[2022-12-21 05:28] LABS: Chol HDL Ratio 7.21 mg/dL (1.0-5.00); Cholesterol 209 mg/dL (0-200); HDL Cholesterol 29 mg/dL (60-100); LDL Cholesterol Calculated 129 mg/dL (50-129); LDL HDL Ratio 4.45 RATIO (0.00-3.22); Triglycerides 257 mg/dL (0-150)
[2022-12-21 05:30] LABS: Estmated Average Glucose 148; Hemoglobin A1C 6.8 % (4.0-6.0)
[2022-12-21 05:33] LABS: Alanine Aminotransferase 138 U/L (0-41); Albumin Level 2.8 g/dL (3.5-5.2); Alkaline Phosphatase 279 U/L (40-130); Anion Gap 18.6 (5-19); Aspartate Amino Transferase 91 U/L (0-40); Blood Urea Nitrogen 22 mg/dL (8-23); Calcium 8.3 mg/dL (8.5-10.5); Carbon Dioxide 32 mmol/L (22-29); Chloride 93 mmol/L (98-107); Globulin 2.6 g/dL (1.3-4.6); Glomerular Filtration Rate 75.5 mL/min (90-130); Glucose 150 mg/dL (65-115); Magnesium 2.2 mg/dL (1.7-2.3); Osmolality Calculated 296 mOsm/kg (285-295); Phosphorus 2.3 mg/dL (2.5-4.5); Potassium 3.6 mmol/L (3.5-5.1); Sodium 140 mmol/L (136-145); Total Bilirubin 5.6 mg/dL (0.15-1.2); Total Protein 5.4 g/dL (6.6-8.7)
[2022-12-21 05:43] LABS: Slide Review Slide Review Perform
[2022-12-21 05:45] LABS: Folate Level 3.5 ng/mL (4.5-32.2)
[2022-12-21] MEDS: lisinopril 20 mg Tablet PO (06:05)
[2022-12-21] MEDS: potassium chloride ER 20 mEq Tablet PO (06:05)
[2022-12-21] MEDS: levothyroxine 125 mcg Tablet PO (06:05)
[2022-12-21] MEDS: rivaroxaban 10 mg Tablet 20 MG PO (06:05)
[2022-12-21] MEDS: acetaZOLAMIDE 250 mg Tablet PO (09:01)
[2022-12-21] MEDS: FUROsemide 10 mg/mL SDV 10mL 80 MG IVP ×2 (09:01→21:32)
--- NOTE | 2022-12-21 09:24 | PC.CHAP ---
Pastoral Care Encounter/Spiritual Assessment Type of Contact [] Declined molecular geneticist visit [] Patient/Family/Request visit [] Outpatient visit [] Follow-up visit [] Physician referral [] Code/Alert [x] Routine visit [] Staff referral [] Actively dying [] Patient sleeping [] Family support [] [] Out of room [] Palliative care [] [] Receiving care in room [] Pre-surgical visit [] Trauma [] Long length of stay [] ICU visit [] Other: Relational/Emotional Strength [x] Patient feels connected with others/family/visitors/staff [] Distress [] Loneliness/isolation [] Abandonment Spirituality of Patient [x] Person of Kristal [] Attends Gnosticist of their Kristal [x] Believes in Prayer [] Reads Bible or Synagogue materials [] There are Spiritual issues to be addressed Predatory Animal Trapper Interventions [x] Prayer [x] Active listening [] Non-anxious presence [x] Spiritual/emotional support [] Crisis/trauma care [] Spiritual counseling [] Bereavement support [] Provided bereavement packet [] Provided Bible/devotional materials [] Provided toy/stuffed animal, coloring book to patient or family member [] Provided Communion [] Anointing/[place] [] Salvation [x] Completed spiritual assessment [] Other: Impact on Illness or Injury [] Angry [] Fearful [] Anxious [] Often cries [] Exhaustion [] Unable to work [] Unable to attend taoist [] Unable to walk/stand [] Unable to read [] Unable to drive [] Unable to eat/drink [] Unable to sleep [] Unable to be with family [] Patient intubated [] Other: Summary Time spent with patient 5 min
--- NOTE | 2022-12-21 17:17 | P.PN_ITS ---
Subjective Subjective: No acute events overnight. Denies any nausea, vomiting, headache. Sitting up in chair today. Patient had a bowel movement today morning. Denies any nausea vomiting, headache. Complaining of back pain. Otherwise has remained hemodynamically stable and afebrile. Blood work appreciated for stable white count of 15,000, stable hemoglobin, CMP showing a potassium down to 2.9, creatinine stable at 1.1, persistent transaminitis, bilirubin of 5.5. Urine output documented to be 3500 in last 24 hours. Vitals/I&O/Wt Last Vital Signs Temp 98.8 F 12/21/22 15:07 Pulse 94 12/21/22 15:07 Resp 26 H 12/21/22 15:07 BP 118/68 12/21/22 15:07 Pulse Ox 90 12/21/22 15:07 O2 Del Method Room Air 12/21/22 15:07 O2 Flow Rate 2 12/21/22 07:45 12/21/22 12/21/22 12/21/22 06:59 14:59 22:59 Output Total 300 / 1700 1100 / 1100 450 / 1550 Balance -300 / -1550 -1100 / -1100 -450 / -1550 Weight last 48 hrs Weight 135.766 kg Weight 136.078 kg Weight 128.367 kg Physical Exam Narrative: General: No acute distress, AO x3, icteric HEENT: PERRLA, pupils bilaterally equal and reactive Chest: Normal vesicular breath sounds, no added sounds, equal good air entry bilaterally CVS: S1-S2 regular, no murmurs, no tachycardia, no gallops, no rubs Abdomen: Soft, nontender, no organomegaly, bowel sounds present Neuro: No focal deficits, no facial deformity, AO x3, power 5/5 in all limbs Urinary Catheter Management: Coleman: Cath Placed During This Visit: yes Reason for Continuing Indwelling Catheter: Acute Urinary Retention or Obstruction Urinary Catheter Date of Insertion: 12/20/22 Urinary Catheter Time of Insertion: 19:49 Data 12/22/22 04:05 12/22/22 04:05 Micro: Microbiology 12/20/22 19:37 Blood Culture - Preliminary Blood SPECIMEN COLLECTED 12/20/22 18:07 Blood Culture - Preliminary Blood SPECIMEN COLLECTED A&P Assessment and plan (1) Anasarca: Most likely in setting of chronic liver disorder though patient does have mild hypoalbuminemia. Echocardiogram shows an EF of 70% with normal diastolic function, RVSP of 25 mmHg with no significant valvular abnormality Monitor electrolytes. Patient already received IV Lasix today morning. Continu e with acetazolamide 250 mg daily, Aldactone 25 mg twice daily. Fluid restriction up to 1500 cc. Strict input output charting. Daily weights. Will request physical therapy for lymphedema wrap. (2) Acute hypokalemia: Most likely in setting of diuresis. Already received 60 mg in the morning. We will repeat 40 mEq. Patient requiring more diuresis. Continue to monitor daily. Change home dose to 40 mg daily. (3) Leukocytosis: With left shift. Unknown cause for now. No ascites. Patient does not localize any symptoms other than mild lower limb cellulitis. Follow-up blood cultures. Follow-up MRSA swab. For now continue with Zosyn. If remains afebrile for next 24 hours we will discontinue antibiotics. (4) Transaminitis: Patient does have history of chronic alcoholism. Most likely in setting of acute alcoholic hepatitis. Family does state patient grows his own CBD. Cannot rule out in setting of herbal product ingestion. Appreciate gallbladder ultrasound and CT abdomen pelvis results. No gallbladder or pancreatic pathology. Does have echogenic opacities in all the lobes of the liver. Cannot rule out malignancy. Patient has a history of liver cancer in family. Alpha-fetoprotein repeat hCG within normal limits. We will plan for MRI abdomen and MRCP for further evaluation of echogenic mass and biliary tract. Check INR. Negative HIV, hepatitis panel, alcohol level. Elevated LDH, GGT Monitor daily for now. Child- Denson score-10 (5) DVT (deep venous thrombosis): Appreciate resolution of DVT on recent lower limb Doppler. Discontinue Xarelto. Switch to heparin 5000 every 12 hourly depending on the INR level. (6) Hyperbilirubinemia: Plan Generalized weakness: Most likely in setting of hypokalemia along with extensive anasarca. PT evaluation. Hypothyroidism Obesity Full code Cardiac diet, fluid restriction Switch to 5000 every 12 heparin twice daily for DVT prophylaxis. Protonix for PUD prophylaxis Plan discussed in detail with patient's brother and patient at bedside. All the questions were answered in detail. Attestations Medical Necessity Statement*: Requires further hospitalization for management of generalized anasarca, acute liver failure with transaminitis and hyperbilirubinemia while further evaluation is done Diagnoses Anasarca R60.1 Acute hypokalemia E87.6 Leukocytosis D72.829 Transaminitis R74.01 DVT (deep venous thrombosis) I82.409 Hyperbilirubinemia E80.6
[2022-12-21] MEDS: spironolactone 25 mg Tablet PO (17:59)
[2022-12-21] MEDS: piperacillin-tazobactam 3.375 GM in sodium chloride 0.9% (plus) 50 ML IV (18:00)
[2022-12-21 18:17] LABS: HCG Tumor Marker 1 mIU/mL (0-3)
[2022-12-21 21:06] LABS: Tumor Marker Alpha Fetoprotein 2.3 ng/mL (0-8.3)
[2022-12-21] MEDS: pantoprazole 40 mg SDV IVP (21:33)
[2022-12-22] VITALS (13 sets, daily range): BP systolic 115–125; BP diastolic 63–84; PULSE 88–95; RESP 18–22; TEMP 36.4–36.6; O2SAT 90–95; BMI 39.3; BMI 39.2
--- NOTE | 2022-12-22 | MRR_ITS ---
PROCEDURE INFORMATION: Exam: MR Abdomen Without Contrast Exam date and time: 12/22/2022 6:59 PM Age: 62 years old Clinical indication: Bloating; Additional info: Liver lessions, possible acute hepatitis TECHNIQUE: Imaging protocol: Magnetic resonance imaging of the abdomen without contrast. COMPARISON: CT abdomen pelvis w con* [id number] 12/20/2022 2:38 PM FINDINGS: Liver: The liver is enlarged, measuring 30 cm in length. There are innumerable well-circumscribed masses throughout the liver measuring up to 6 cm in diameter, consistent with diffuse hepatic metastases. Gallbladder and bile ducts: The gallbladder is unremarkable. No gallstones are demonstrated. No biliary dilatation demonstrated. Pancreas: The pancreas is normal in appearance. No pancreatic duct dilatation. Spleen: Unremarkable. No splenomegaly. Adrenal glands: The adrenal glands appear thickened. No adrenal masses are noted. Kidneys and ureters: Simple subcentimeter renal cysts bilaterally. No hydronephrosis. No solid renal mass. Stomach and bowel: Visualized stomach and intestines are unremarkable. Intraperitoneal space: Trace perihepatic ascites noted. Vasculature: The aorta is unremarkable as demonstrated. Bones/joints: Unremarkable. Soft tissues: Unremarkable. IMPRESSION: 1. The liver is enlarged, measuring 30 cm in length. There are innumerable well-circumscribed masses throughout the liver measuring up to 6 cm in diameter, consistent with diffuse hepatic metastases. 2. Trace perihepatic ascites noted. 3. No interval change from CT abdomen and pelvis dated 12/20/2022. COMMENTS: Consistent with the [employer]'s Incidental Findings Committee white paper (J Am Mary Kay Radiol 2018): Any incidental renal lesion less than 1 cm or classified as too small to characterize, or any incidental cystic renal lesion characterized as simple-appearing, is likely benign. No follow-up imaging is recommended for these lesions per consensus recommendations based on imaging c MTDD
[2022-12-22] MEDS: piperacillin-tazobactam 3.375 GM in sodium chloride 0.9% (plus) 50 ML IV ×3 (02:35→20:09)
[2022-12-22 04:19] LABS: Basophils # 0.1 10^3/uL (0.0-0.1); Basophils % 0.3 %; Eosinophils # 0.1 10^3/uL (0.0-0.8); Eosinophils % 0.4 %; Hematocrit 42.8 % (37-53); Lymphocytes # 1.5 10^3/uL (0.8-4.8); Lymphocytes % 9.7 %; Mean Corpuscular HGB Conc 32.5 g/dL (30-55); Mean Corpuscular Hemoglobin 31.6 pg (27-33); Mean Corpuscular Volume 97.3 fl (82-101); Mean Platelet Volume 12.6 fL (7.4-10.4); Monocytes # 0.3 10^3/uL (0.2-0.9); Neutrophils % 79.3 %; Nucleated Red Blood Cells # 0.1 /100WBC; Nucleated Red Blood Cells % 0.6 %; Platelet Count 82 10^3/cmm (157-399); Red Cell Distribution Width 15.3 % (12.1-15.1); White Blood Count 15.78 10^3/uL (3.29-11.43)
[2022-12-22 04:49] LABS: Slide Review Slide Review Perform
[2022-12-22 04:50] LABS: Magnesium 2.3 mg/dL (1.7-2.3); Phosphorus 2.2 mg/dL (2.5-4.5)
[2022-12-22 04:51] LABS: Alanine Aminotransferase 136 U/L (0-41); Alkaline Phosphatase 283 U/L (40-130); Aspartate Amino Transferase 95 U/L (0-40); Blood Urea Nitrogen 28 mg/dL (8-23); Calcium 8.3 mg/dL (8.5-10.5); Carbon Dioxide 32 mmol/L (22-29); Chloride 90 mmol/L (98-107); Globulin 2.2 g/dL (1.3-4.6); Glomerular Filtration Rate 67.6 mL/min (90-130); Glucose 219 mg/dL (65-115); Osmolality Calculated 294 mOsm/kg (285-295); Sodium 136 mmol/L (136-145); Total Bilirubin 5.5 mg/dL (0.15-1.2); Total Protein 5.2 g/dL (6.6-8.7)
[2022-12-22 04:53] LABS: Anion Gap 16.9 (5-19)
[2022-12-22 04:54] LABS: Potassium 2.9 mmol/L (3.5-5.1)
[2022-12-22] MEDS: potassium chloride ER 20 mEq Tablet PO (05:59)
[2022-12-22] MEDS: rivaroxaban 10 mg Tablet 20 MG PO (05:59)
[2022-12-22] MEDS: potassium chloride ER 20 mEq Tablet 40 MEQ PO ×2 (05:59→12:12)
[2022-12-22] MEDS: levothyroxine 125 mcg Tablet PO (06:00)
[2022-12-22] MEDS: lisinopril 20 mg Tablet PO (06:00)
[2022-12-22] MEDS: ipratropium-albuterol 3 mL Neb INHALATION ×2 (08:26→20:32)
[2022-12-22] MEDS: acetaZOLAMIDE 250 mg Tablet PO (08:33)
[2022-12-22] MEDS: FUROsemide 10 mg/mL SDV 10mL 80 MG IVP (08:33)
[2022-12-22] MEDS: spironolactone 25 mg Tablet PO ×2 (08:34→17:24)
--- NOTE | 2022-12-22 08:47 | MRR_ITS ---
PROCEDURE INFORMATION: Exam: MR Abdomen Without Contrast Exam date and time: 12/22/2022 6:59 PM Age: 62 years old Clinical indication: Bloating; Additional info: Liver lessions, possible acute hepatitis TECHNIQUE: Imaging protocol: Magnetic resonance imaging of the abdomen without contrast. COMPARISON: CT abdomen pelvis w con* [id number] 12/20/2022 2:38 PM FINDINGS: Liver: The liver is enlarged, measuring 30 cm in length. There are innumerable well-circumscribed masses throughout the liver measuring up to 6 cm in diameter, consistent with diffuse hepatic metastases. Gallbladder and bile ducts: The gallbladder is unremarkable. No gallstones are demonstrated. No biliary dilatation demonstrated. Pancreas: The pancreas is normal in appearance. No pancreatic duct dilatation. Spleen: Unremarkable. No splenomegaly. Adrenal glands: The adrenal glands appear thickened. No adrenal masses are noted. Kidneys and ureters: Simple subcentimeter renal cysts bilaterally. No hydronephrosis. No solid renal mass. Stomach and bowel: Visualized stomach and intestines are unremarkable. Intraperitoneal space: Trace perihepatic ascites noted. Vasculature: The aorta is unremarkable as demonstrated. Bones/joints: Unremarkable. Soft tissues: Unremarkable. MR/MR abdomen wo/w con* [id number] IMPRESSION: 1. The liver is enlarged, measuring 30 cm in length. There are innumerable well-circumscribed masses throughout the liver measuring up to 6 cm in diameter, consistent with diffuse hepatic metastases. 2. Trace perihepatic ascites noted. 3. No interval change from CT abdomen and pelvis dated 12/20/2022. COMMENTS: Consistent with the [employer]'s Incidental Findings Committee white paper (J Am Mary Kay Radiol 2018): Any incidental renal lesion less than 1 cm or classified as too small to characterize, or any incidental cystic renal lesion characterized as simple-appearing, is likely benign. No follow-up imaging is recommended for these lesions per consensus recommendations based on imaging criteria.
[2022-12-22] MEDS: potassium phosphate (mEq K) 40 MEQ in sodium chloride 0.9% (100 ml) 100 ML 27.27 MEQ IV (10:00)
[2022-12-22] MEDS: HYDROcodone-acetaminophen 5-325 mg Tablet 1 TAB PO (10:27)
[2022-12-22 11:32] LABS: INR 7.48 (0.8-1.2)
[2022-12-22 11:54] LABS: Methicillin-Resist S.aureu PCR NOT DETECTED (NOT DETECTED)
[2022-12-22] MEDS: phytonadione (ADULT) 10 mg/mL Ampule 1 mL 5 MG PO (12:11)
[2022-12-22] MEDS: folic acid 1 mg Tablet PO (17:24)
[2022-12-22] MEDS: FUROsemide 40 mg Tablet PO (17:24)
[2022-12-22] MEDS: heparin 5,000 unit/mL INJ 1 mL 5000 UNIT SUBCUT (17:25)
[2022-12-22] MEDS: gadobenate dimeglumine 20 mL vial IV (19:08)
[2022-12-22] MEDS: pantoprazole 40 mg SDV IVP (20:09)
[2022-12-23] VITALS (14 sets, daily range): BP systolic 111–124; BP diastolic 68–76; PULSE 86–96; RESP 17–27; TEMP 36.6–37.2; O2SAT 91–94
[2022-12-23] MEDS: piperacillin-tazobactam 3.375 GM in sodium chloride 0.9% (plus) 50 ML IV ×2 (02:12→11:30)
[2022-12-23] MEDS: ipratropium-albuterol 3 mL Neb INHALATION ×2 (02:47→07:43)
[2022-12-23] MEDS: heparin 5,000 unit/mL INJ 1 mL 5000 UNIT SUBCUT ×2 (04:09→16:54)
[2022-12-23 04:14] LABS: Basophils # 0.1 10^3/uL (0.0-0.1); Basophils % 0.4 %; Eosinophils # 0.1 10^3/uL (0.0-0.8); Eosinophils % 0.4 %; Hematocrit 41.2 % (37-53); Lymphocytes # 1.5 10^3/uL (0.8-4.8); Lymphocytes % 8.7 %; Mean Corpuscular Hemoglobin 31.4 pg (27-33); Mean Corpuscular Volume 95.2 fl (82-101); Mean Platelet Volume 11.2 fL (7.4-10.4); Monocytes # 0.4 10^3/uL (0.2-0.9); Monocytes % 2.1 %; Neutrophils # 13.81 10^3/uL (1.8-7.7); Neutrophils % 81.3 %; Nucleated Red Blood Cells # 0.1 /100WBC; Nucleated Red Blood Cells % 0.6 %; Platelet Count 120 10^3/cmm (157-399); Red Blood Count 4.33 10^6/uL (3.85-5.65); Red Cell Distribution Width 15.3 % (12.1-15.1); White Blood Count 16.95 10^3/uL (3.29-11.43)
[2022-12-23 04:21] LABS: INR 1.12 (0.8-1.2)
[2022-12-23 04:36] LABS: Magnesium 2.4 mg/dL (1.7-2.3); Phosphorus 2.6 mg/dL (2.5-4.5)
[2022-12-23 04:37] LABS: Alanine Aminotransferase 135 U/L (0-41); Albumin Level 2.9 g/dL (3.5-5.2); Alkaline Phosphatase 312 U/L (40-130); Anion Gap 16.5 (5-19); Aspartate Amino Transferase 108 U/L (0-40); Blood Urea Nitrogen 30 mg/dL (8-23); Calcium 8.6 mg/dL (8.5-10.5); Carbon Dioxide 33 mmol/L (22-29); Chloride 93 mmol/L (98-107); Globulin 2.9 g/dL (1.3-4.6); Glomerular Filtration Rate 67.6 mL/min (90-130); Glucose 182 mg/dL (65-115); Osmolality Calculated 299 mOsm/kg (285-295); Potassium 3.5 mmol/L (3.5-5.1); Sodium 139 mmol/L (136-145); Total Protein 5.8 g/dL (6.6-8.7)
[2022-12-23 04:50] LABS: Total Bilirubin 7.7 mg/dL (0.15-1.2)
[2022-12-23 05:17] LABS: Slide Review Slide Review Perform
[2022-12-23] MEDS: potassium chloride ER 20 mEq Tablet 40 MEQ PO (06:12)
[2022-12-23] MEDS: lisinopril 20 mg Tablet PO (06:12)
[2022-12-23] MEDS: levothyroxine 125 mcg Tablet PO (06:12)
[2022-12-23] MEDS: FUROsemide 40 mg Tablet PO (08:20)
[2022-12-23] MEDS: spironolactone 25 mg Tablet PO ×2 (08:20→18:33)
[2022-12-23] MEDS: folic acid 1 mg Tablet PO ×2 (08:20→18:33)
[2022-12-23] MEDS: acetaZOLAMIDE 250 mg Tablet PO (08:20)
--- NOTE | 2022-12-23 09:32 | PC.SOCIAL ---
IMM Update Pg. 2 of IMM updated and reviewed with patient. Copy provided and copy placed in chart.
[2022-12-23 11:20] LABS: Glucose Point of Care 215 mg/dL (70-110)
[2022-12-23] MEDS: insulin lispro 100 unit/1 mL SUBCUT ×3 (13:22→21:16)
--- NOTE | 2022-12-23 13:56 | P.PN_ITS ---
Subjective Subjective: Patient today morning seen with family at bedside. Patient denies any nausea vomiting, headache. States he tolerated the diet well today. Last bowel movement yesterday. Document urine output 2600 cc in last 24 hours. Overall patient is 4.5 L negative. Blood work appreciated for a white count stable at 16,000, stable hemoglobin, CMP showing creatinine of 1.1, potassium of 3.5, BUN of 30 with bicarb of 33, bilirubin of 7.7, AST/ALT of 108/135, abdomen phosphatase of 312. INR down to 1.12 from 7 yesterday Vitals/I&O/Wt Last Vital Signs Temp 97.8 F 12/23/22 12:17 Pulse 89 12/23/22 11:50 Resp 24 H 12/23/22 11:50 BP 112/76 12/23/22 11:50 Pulse Ox 93 12/23/22 11:50 O2 Del Method Nasal Cannula 12/23/22 11:50 O2 Flow Rate 3 12/23/22 08:20 12/22/22 12/23/22 12/23/22 22:59 06:59 14:59 Intake Total 120 / 328.5106 850 / 1178.5106 730 / 730 Output Total 750 / 1750 850 / 2600 Balance -630 / -1421.4894 0 / -1421.4894 730 / 730 Weight last 48 hrs Weight 134.972 kg Weight 135.227 kg Weight 135.766 kg Physical Exam Narrative: General: No acute distress, AO x3, icteric HEENT: PERRLA, pupils bilaterally equal and reactive Chest: Normal vesicular breath sounds, no added sounds, equal good air entry b ilaterally CVS: S1-S2 regular, no murmurs, no tachycardia, no gallops, no rubs Abdomen: Soft, nontender, no organomegaly, bowel sounds present Neuro: No focal deficits, no facial deformity, AO x3, power 5/5 in all limbs Urinary Catheter Management: Coleman: Cath Placed During This Visit: yes Reason for Continuing Indwelling Catheter: Other Urinary Catheter Date of Insertion: 12/20/22 Urinary Catheter Time of Insertion: 19:49 Data 12/23/22 03:32 12/23/22 03:32 A&P Assessment and plan (1) Anasarca: Most likely in setting of chronic liver disorder though patient does have mild hypoalbuminemia. Echocardiogram shows an EF of 70% with normal diastolic function, RVSP of 25 mmHg with no significant valvular abnormality Monitor electrolytes. Patient already received IV Lasix today morning. Continue with acetazolamide 250 mg daily, Aldactone 25 mg twice daily. Fluid restriction up to 1500 cc. Strict input output charting. Daily weights. Will request physical therapy for lymphedema wrap. (2) Acute hypokalemia: Most likely in setting of diuresis. Already received 60 mg in the morning. We will repeat 40 mEq. Patient requiring more diuresis. Continue to monitor daily. Change home dose to 40 mg daily. (3) Leukocytosis: With left shift. Unknown cause for now. No ascites. Patient does not localize any symptoms other than mild lower limb cellulitis. Follow-up blood cultures. Follow-up MRSA swab. For now continue with Zosyn. If remains afebrile for next 24 hours we will discontinue antibiotics. (4) Transaminitis: Patient does have history of chronic alcoholism. Most likely in setting of acute alcoholic hepatitis. Family does state patient grows his own CBD. Cannot rule out in setting of herbal product ingestion. Appreciate gallbladder ultrasound and CT abdomen pelvis results. No gallbladder or pancreatic pathology. Does have echogenic opacities in all the lobes of the liver. Cannot rule out malignancy. Patient has a history of liver cancer in family. Alpha-fetoprotein repeat hCG within normal limits. We will plan for MRI abdomen and MRCP for further evaluation of echogenic mass and biliary tract. Check INR. Negative HIV, hepatitis panel, alcohol level. Elevated LDH, GGT Monitor daily for now. Child- Denson score-10 (5) DVT (deep venous thrombosis): Appreciate resolution of DVT on recent lower limb Doppler. Discontinue Xarelto. Switch to heparin 5000 every 12 hourly depending on the INR level. (6) Hyperbilirubinemia: (7) Hepatic dysfunction: (8) Supratherapeutic INR: Plan Generalized weakness: Most likely in setting of hypokalemia along with extensive anasarca. PT evaluation. Hypothyroidism Obesity Full code Cardiac diet, fluid restriction Switch to 5000 every 12 heparin twice daily for DVT prophylaxis. Protonix for PUD prophylaxis Plan for the day: Continue with diuresis. Switch to Lasix 40 mg orally, stop acetazolamide. Continue with spironolactone 25 mg twice daily. Monitor electrolytes. Change dose of oral potassium to 40 mg daily. Lymphedema wrap with physical therapy. Appreciate physical therapy recommendations. Out of bed to chair. No DVT seen on lower limb Dopplers. Discussed in detail with the patient. He is agreeable to stop Xarelto and switch to prophylactic heparin. Start on heparin 5000 every 12 hourly. Supra therapeutic INR yesterday. Received 1 dose of vitamin K. INR therapeutic today. Medical reconstruction done for hepatotoxic drugs. Continue with lisinopril 20 mg oral daily. Start on lactulose 10 mg oral daily. Appreciate MRI abdomen and MRCP results. Consistent with multiple well- circumscribed multiple masses. High likelihood of metastasis. Discussed in detail with the patient. Discussed that patient would need possible liver biopsy versus or along with colonoscopy. Patient is agreeable. Discussed in detail with surgical team. Plan to do as an outpatient. Discharge plan: Discussed in detail with patient at bedside. Options discussed about home with home health versus SNF placement. Patient is agreeable for home with home health. Plan to discharge in next 24 hours if patient remains hemodynamically stable on oral diuresis. Discussed in detail with patient and patient's brother and other family members at bedside. All the questions were answered. Attestations Medical Necessity Statement*: Requires further hospitalization for management of acute liver dysfunction, generalized anasarca by safe discharge planning is sought. Diagnoses Anasarca R60.1 Acute hypokalemia E87.6 Leukocytosis D72.829 Transaminitis R74.01 DVT (deep venous thrombosis) I82.409 Hyperbilirubinemia E80.6 Hepatic dysfunction K76.9 Supratherapeutic INR R79.1
[2022-12-23] MEDS: lactulose oral liq 20 gm/30 mL UDC 10 GM PO (15:14)
[2022-12-23 20:15] LABS: Glucose Point of Care 160 mg/dL (70-110)
[2022-12-23 20:47] LABS: Glucose Point of Care 177 mg/dL (70-110)
[2022-12-23] MEDS: pantoprazole 40 mg SDV IVP (21:15)
[2022-12-24] VITALS (12 sets, daily range): BP systolic 96–132; BP diastolic 62–72; PULSE 85–97; RESP 16–28; TEMP 36.4–36.9; O2SAT 90–94; BMI 37.5
[2022-12-24] MEDS: potassium chloride ER 20 mEq Tablet 40 MEQ PO (04:55)
[2022-12-24] MEDS: heparin 5,000 unit/mL INJ 1 mL 5000 UNIT SUBCUT ×2 (04:55→16:59)
[2022-12-24] MEDS: levothyroxine 125 mcg Tablet PO (04:55)
[2022-12-24] MEDS: lisinopril 20 mg Tablet PO (04:55)
[2022-12-24 05:09] LABS: Basophils # 0.1 10^3/uL (0.0-0.1); Basophils % 0.3 %; Hematocrit 41.5 % (37-53); Lymphocytes # 1.3 10^3/uL (0.8-4.8); Lymphocytes % 7.2 %; Mean Corpuscular HGB Conc 32.8 g/dL (30-55); Mean Corpuscular Hemoglobin 31.7 pg (27-33); Mean Corpuscular Volume 96.7 fl (82-101); Monocytes # 0.4 10^3/uL (0.2-0.9); Neutrophils # 15.05 10^3/uL (1.8-7.7); Neutrophils % 83.5 %; Nucleated Red Blood Cells # 0.2 /100WBC; Nucleated Red Blood Cells % 0.9 %; Platelet Count 112 10^3/cmm (157-399); Red Blood Count 4.29 10^6/uL (3.85-5.65); Red Cell Distribution Width 15.4 % (12.1-15.1); White Blood Count 18.05 10^3/uL (3.29-11.43)
[2022-12-24 05:24] LABS: Alanine Aminotransferase 133 U/L (0-41); Alkaline Phosphatase 306 U/L (40-130); Anion Gap 17.3 (5-19); Aspartate Amino Transferase 106 U/L (0-40); Blood Urea Nitrogen 26 mg/dL (8-23); Calcium 8.8 mg/dL (8.5-10.5); Carbon Dioxide 32 mmol/L (22-29); Chloride 93 mmol/L (98-107); Globulin 2.8 g/dL (1.3-4.6); Glomerular Filtration Rate 85.2 mL/min (90-130); Glucose 169 mg/dL (65-115); Osmolality Calculated 297 mOsm/kg (285-295); Potassium 3.3 mmol/L (3.5-5.1); Sodium 139 mmol/L (136-145); Total Protein 5.8 g/dL (6.6-8.7)
[2022-12-24 05:28] LABS: Magnesium 2.5 mg/dL (1.7-2.3)
[2022-12-24 05:41] LABS: Slide Review Slide Review Perform
[2022-12-24 05:44] LABS: Total Bilirubin 8.3 mg/dL (0.15-1.2)
[2022-12-24 06:39] LABS: Glucose Point of Care 142 mg/dL (70-110)
[2022-12-24] MEDS: ipratropium-albuterol 3 mL Neb INHALATION ×2 (07:47→14:52)
[2022-12-24] MEDS: insulin lispro 100 unit/1 mL SUBCUT ×3 (08:11→20:54)
[2022-12-24] MEDS: lactulose oral liq 20 gm/30 mL UDC 10 GM PO (08:11)
[2022-12-24] MEDS: folic acid 1 mg Tablet PO ×2 (08:11→16:59)
[2022-12-24] MEDS: FUROsemide 40 mg Tablet PO (08:11)
[2022-12-24] MEDS: spironolactone 25 mg Tablet PO ×2 (08:11→16:59)
[2022-12-24 11:16] LABS: Glucose Point of Care 181 mg/dL (70-110)
--- NOTE | 2022-12-24 11:26 | PC.SOCIAL ---
IMM Update pg 2 of [facility] udpated and reviewed w/ patient. Copy provided and Copy in chart dated, and initialed.
[2022-12-24] MEDS: potassium phosphate (mMol PO4) 30 MMOL in sodium chloride 0.9% (100 ml) 100 ML 23.16 MMOL IV (13:10)
--- NOTE | 2022-12-24 15:33 | PM.PN ---
Subjective Subjective: No acute events overnight. Seen with brother at bedside. Patient seen sitting up in recliner. Has lymphedema wraps. Denies any nausea, vomiting, headache. States feeling slightly better. Has remained hemodynamically stable and afebrile on room air. Document urine output of 1100 cc. Blood work shows white count of 18,000, hemoglobin of 13.6, chemistry showing a creatinine of 0.9, BUN of 26, potassium of 3.3, bicarb of 32, phosphorus of 2, magnesium of 2.5, bilirubin of 8.3, AST/ALT of 106/103, alkaline phosphatase 306. Vitals/I&O/Wt Last Vital Signs Temp 97.6 F 12/24/22 12:00 Pulse 96 12/24/22 14:52 Resp 20 H 12/24/22 14:52 BP 108/64 12/24/22 12:00 Pulse Ox 91 12/24/22 14:52 O2 Del Method Room Air 12/24/22 14:52 O2 Flow Rate 3 12/23/22 14:00 12/24/22 12/24/22 12/24/22 06:59 14:59 22:59 Intake Total 1000 / 2420 360 / 360 Output Total 700 / 1150 Balance 300 / 1270 360 / 360 Weight last 48 hrs Weight 129.047 kg Weight 129.047 kg Weight 129.092 kg Weight 134.972 kg Physical Exam Narrative: General: No acute distress, AO x3, icteric HEENT: PERRLA, pupils bilaterally equal and reactive Chest: Normal vesicular breath sounds, no added sounds, equal good air entry bilaterally CVS: S1-S2 regular, no murmurs, no tachycardia, no gallops, no rubs Abdomen: Soft, nontender, no organomegaly, bowel sounds present Neuro: No focal deficits, no facial deformity, AO x3, power 5/5 in all limbs Urinary Catheter Management: Coleman: Cath Placed During This Visit: yes Reason for Continuing Indwelling Catheter: Acute Urinary Retention or Obstruction Urinary Catheter Date of Insertion: 12/20/22 Urinary Catheter Time of Insertion: 19:49 Data 12/24/22 04:08 12/24/22 04:08 A&P Assessment and plan (1) Anasarca: Most likely in setting of chronic liver disorder though patient does have mild hypoalbuminemia. Echocardiogram shows an EF of 70% with normal diastolic function, RVSP of 25 mmHg with no significant valvular abnormality Monitor electrolytes. Lasix oral 40 mg daily. Aldactone 25 mg twice daily. Acetazolamide stopped. Continue with lymphedema wraps. Out of bed to chair. Patient seems to be approaching his dry body weight. Fluid restriction up to 1500 cc. Strict input output charting. Daily weights. (2) Acute hypokalemia: Most likely in setting of diuresis. Continue with home dose of 40 mg orally. Replace 30 mmol of potassium phosphate which will replace both potassium and phosphorus. (3) Leukocytosis: With left shift. Infectious cause so far unlikely and not found. Patient does not have any ascites, UTI, chest x-ray does not show any pneumonia. Patient has remained hemodynamically stable and afebrile for last 24 hours while being off antibiotics. Follow-up blood cultures, MRSA swab. For now we will continue to hold off on antibiotics. Check peripheral smear. (4) Transaminitis: Patient does have history of chronic alcoholism. Most likely in setting of acute alcoholic hepatitis. Family does state patient grows his own CBD. Cannot rule out in setting of herbal product ingestion. Appreciate gallbladder ultrasound and CT abdomen pelvis results. No gallbladder or pancreatic pathology. Does have echogenic opacities in all the lobes of the liver. Appreciate MRI abdomen and MRCP results. Concerns for malignancy secondary to high circumscribed masses. Patient will most likely need a liver biopsy. Plan for colonoscopy as an outpatient. Repeat INR in a.m. HIV, hepatitis panel negative. Monitor daily for now. Child- Denson score-10 (5) DVT (deep venous thrombosis): Appreciate resolution of DVT on recent lower limb Doppler. Discontinue Xarelto. Switch to heparin 5000 every 12 hourly depending on the INR level. (6) Hyperbilirubinemia: (7) Hepatic dysfunction: (8) Supratherapeutic INR: Plan Generalized weakness: Most likely in setting of hypokalemia along with extensive anasarca. PT evaluation. Hypothyroidism Obesity Full code Cardiac diet, fluid restriction Switch to 5000 every 12 heparin twice daily for DVT prophylaxis. Protonix for PUD prophylaxis Discharge plan: Yesterday patient had wanted to go home with home health. Today patient and patient's brother states after further discussion as he lives alone he is agreeable to SNF placement. Case management alerted. We will plan to discharge to SNF once patient has been accepted. Discussed in detail with patient and patient's brother and other family members at bedside. All the questions were answered. Attestations Medical Necessity Statement*: Requires further hospitalization for management of anasarca in the setting of severe liver dysfunction secondary to alcohol hepatitis, physical deconditioning while safe discharge planning to SNF is sought Diagnoses Anasarca R60.1 Acute hypokalemia E87.6 Leukocytosis D72.829 Transaminitis R74.01 DVT (deep venous thrombosis) I82.409 Hyperbilirubinemia E80.6 Hepatic dysfunction K76.9 Supratherapeutic INR R79.1
[2022-12-24 16:57] LABS: Glucose Point of Care 149 mg/dL (70-110)
[2022-12-24 17:50] LABS: LAB Peripheral Smear Sent for Review
[2022-12-24 20:49] LABS: Glucose Point of Care 178 mg/dL (70-110)
[2022-12-24] MEDS: pantoprazole 40 mg SDV IVP (20:54)
[2022-12-24] MEDS: HYDROcodone-acetaminophen 5-325 mg Tablet 1 TAB PO (20:56)
[2022-12-25] VITALS (14 sets, daily range): BP systolic 110–140; BP diastolic 70–78; PULSE 70–98; RESP 17–23; TEMP 36.6–37.6; O2SAT 87–98; BMI 35.4
[2022-12-25 02:33] LABS: Hematocrit 40.8 % (37-53); Mean Corpuscular HGB Conc 33.1 g/dL (30-55); Mean Corpuscular Hemoglobin 31.7 pg (27-33); Mean Corpuscular Volume 95.8 fl (82-101); Mean Platelet Volume 11.7 fL (7.4-10.4); Platelet Count 98 10^3/cmm (157-399); Red Blood Count 4.26 10^6/uL (3.85-5.65); Red Cell Distribution Width 15.7 % (12.1-15.1); White Blood Count 17.73 10^3/uL (3.29-11.43)
[2022-12-25 02:47] LABS: INR 1.04 (0.8-1.2)
[2022-12-25 03:01] LABS: Alanine Aminotransferase 133 U/L (0-41); Alkaline Phosphatase 342 U/L (40-130); Anion Gap 15.7 (5-19); Aspartate Amino Transferase 109 U/L (0-40); Blood Urea Nitrogen 28 mg/dL (8-23); Calcium 8.8 mg/dL (8.5-10.5); Carbon Dioxide 33 mmol/L (22-29); Chloride 94 mmol/L (98-107); Globulin 2.7 g/dL (1.3-4.6); Glomerular Filtration Rate 75.5 mL/min (90-130); Glucose 152 mg/dL (65-115); Osmolality Calculated 296 mOsm/kg (285-295); Potassium 3.7 mmol/L (3.5-5.1); Sodium 139 mmol/L (136-145); Total Protein 5.7 g/dL (6.6-8.7)
[2022-12-25 03:03] LABS: Total Bilirubin 9.3 mg/dL (0.15-1.2)
[2022-12-25 03:17] LABS: Slide Review Slide Review Perform
[2022-12-25 03:18] LABS: Absolute Neutrophil 15.2 10^3/cmm (1.4-6.5); Absolute Segmented Neutrophil 15.2 10/cmm (1.6-7.1); Eosinophils 0 %; Lymphocytes 7 %; Lymphocytes Absolute 1.2 10^3/cmm (1.2-3.4); Monocytes Absolute 0.5 10^3/cmm (0.1-0.6); Platelet Estimate Decreased (Normal); Segmented Neutrophils 86 %; Total Cells Counted 100 (0-100)
[2022-12-25] MEDS: potassium chloride ER 20 mEq Tablet 40 MEQ PO (03:53)
[2022-12-25] MEDS: levothyroxine 125 mcg Tablet PO (03:53)
[2022-12-25] MEDS: lisinopril 20 mg Tablet PO (03:54)
[2022-12-25] MEDS: heparin 5,000 unit/mL INJ 1 mL 5000 UNIT SUBCUT ×2 (03:54→16:11)
[2022-12-25 06:33] LABS: Glucose Point of Care 167 mg/dL (70-110)
[2022-12-25] MEDS: lactulose oral liq 20 gm/30 mL UDC 10 GM PO (08:35)
[2022-12-25] MEDS: folic acid 1 mg Tablet PO ×2 (08:37→17:25)
[2022-12-25] MEDS: FUROsemide 40 mg Tablet PO (08:37)
[2022-12-25] MEDS: spironolactone 25 mg Tablet PO ×2 (08:37→17:25)
[2022-12-25] MEDS: insulin lispro 100 unit/1 mL SUBCUT ×2 (08:38→17:22)
[2022-12-25 11:59] LABS: Glucose Point of Care 141 mg/dL (70-110)
--- NOTE | 2022-12-25 13:35 | PC.NURSE ---
5 beat run of vtach seen on patient. When nurse went into the room to check on him, he was asleep. Dr. López notified.
[2022-12-25 14:08] LABS: Magnesium 2.6 mg/dL (1.7-2.3)
[2022-12-25] MEDS: metoprolol tartrate 25 mg Tablet PO ×2 (14:14→19:46)
--- NOTE | 2022-12-25 15:37 | P.PN_ITS ---
Subjective Subjective: Today morning seen laying comfortably in bed. Denies any active new complaints. States he is feeling better. Had a restful night. Seen with daughter at bedside. Has remained hemodynamically stable and afebrile. Coleman removed yesterday. Patient did have 1 episode of 5 beat nonsustained V. tach on while patient was sleeping. Remained asymptomatic. CBC shows a stable white count of 17, hemoglobin of 13.5, platelet count of 98,000, CMP showing potassium of 3.7, carbon dioxide stable at 33, creatinine of 1, stable transaminitis with bilirubin of 9.3, INR stable at 1.04 Vitals/I&O/Wt Last Vital Signs Temp 98.0 F 12/25/22 11:11 Pulse 87 12/25/22 15:06 Resp 20 H 12/25/22 15:06 BP 114/70 12/25/22 11:11 Pulse Ox 87 L 12/25/22 15:06 O2 Del Method Nasal Cannula 12/25/22 15:06 O2 Flow Rate 2 12/25/22 15:06 12/25/22 12/25/22 12/25/22 06:59 14:59 22:59 Intake Total 440 / 440 Output Total 230 / 230 Balance 210 / 210 Weight last 48 hrs Weight 126.779 kg Weight 129.047 kg Weight 129.047 kg Weight 129.092 kg Physical Exam Narrative: General: No acute distress, AO x3, icteric HEENT: PERRLA, pupils bilaterally equal and reactive Chest: Normal vesicular breath sounds, no added sounds, equal good air entry bilaterally CVS: S1-S2 regular, no murmurs, no tachycardia, no gallops, no rubs Abdomen: Soft, nontender, no organomegaly, bowel sounds present Neuro: No focal deficits, no facial deformity, AO x3, power 5/5 in all limbs Urinary Catheter Management: Coleman: Cath Placed During This Visit: yes Reason for Continuing Indwelling Catheter: Acute Urinary Retention or Ob struction Urinary Catheter Date of Insertion: 12/20/22 Urinary Catheter Time of Insertion: 19:49 Data 12/25/22 01:39 12/25/22 01:39 A&P Assessment and plan (1) Anasarca: Most likely in setting of chronic liver disorder though patient does have mild hypoalbuminemia. Echocardiogram shows an EF of 70% with normal diastolic function, RVSP of 25 mmHg with no significant valvular abnormality Monitor electrolytes. Lasix oral 40 mg daily. Aldactone 25 mg twice daily. Acetazolamide stopped. Continue with lymphedema wraps. Out of bed to chair. Patient seems to be approaching his dry body weight. Fluid restriction up to 1500 cc. Strict input output charting. Daily weights. (2) Acute hypokalemia: Most likely in setting of diuresis. Continue with home dose of 40 mg orally. Replace 30 mmol of potassium phosphate which will replace both potassium and phosphorus. (3) Leukocytosis: With left shift. Infectious cause so far unlikely and not found. Patient does not have any ascites, UTI, chest x-ray does not show any pneumonia. Patient has remained hemodynamically stable and afebrile for last 24 hours while being off antibiotics. Follow-up blood cultures, MRSA swab. For now we will continue to hold off on antibiotics. Check peripheral smear. (4) Transaminitis: Patient does have history of chronic alcoholism. Most likely in setting of acute alcoholic hepatitis. Family does state patient grows his own CBD. Cannot rule out in setting of herbal product ingestion. Appreciate gallbladder ultrasound and CT abdomen pelvis results. No gallbladder or pancreatic pathology. Does have echogenic opacities in all the lobes of the liver. Appreciate MRI abdomen and MRCP results. Concerns for malignancy secondary to high circumscribed masses. Patient will most likely need a liver biopsy. Plan for colonoscopy as an outpatient. Repeat INR in a.m. HIV, hepatitis panel negative. Monitor daily for now. Child- Denson score-10 (5) DVT (deep venous thrombosis): Appreciate resolution of DVT on recent lower limb Doppler. Discontinue Xarelto. Switch to heparin 5000 every 12 hourly depending on the INR level. (6) Hyperbilirubinemia: (7) Hepatic dysfunction: (8) Supratherapeutic INR: (9) Liver masses: Plan Generalized weakness: Most likely in setting of hypokalemia along with extensive anasarca. PT evaluation. Hypothyroidism Obesity Full code Cardiac diet, fluid restriction Switch to 5000 every 12 heparin twice daily for DVT prophylaxis. Protonix for PUD prophylaxis Plan for today: Continue with fluid restriction, current diuretic plan of oral Lasix, spironolactone twice daily. Keep potassium around 4, magnesium above 2. Telemetry. Start on metoprolol 25 mg twice daily. Out of bed to chair. Continue with lymphedema wraps. Monitor CMP, magnesium daily. Continue with current oral potassium daily supplementation. As patient will remain here until Tuesday at least for next placement will confirm with surgery again for a possible colonoscopy. Patient is agreeable. Orders put for bowel prep to be done on 12/26 for possible colonoscopy on 12/27. Plan for clear liquid diet tomorrow and n.p.o. after midnight on 12/27 Discharge plan: Plan to discharge to SNF. Case management alerted. Discussed in detail with patient and patient's brother and other family members at bedside. All the questions were answered. Attestations Medical Necessity Statement*: Requires further hospitalization for management of anasarca, further work-up of liver masses while malignant work-up is done, significant transaminitis most likely in setting of alcohol hepatitis by safe discharge planning to SNF is sought Diagnoses Anasarca R60.1 Acute hypokalemia E87.6 Leukocytosis D72.829 Transaminitis R74.01 DVT (deep venous thrombosis) I82.409 Hyperbilirubinemia E80.6 Hepatic dysfunction K76.9 Supratherapeutic INR R79.1 Liver masses R16.0
[2022-12-25] MEDS: magnesium citrate Btl 296 mL 148 ML PO (16:10)
[2022-12-25 16:24] LABS: Glucose Point of Care 155 mg/dL (70-110)
[2022-12-25] MEDS: HYDROcodone-acetaminophen 5-325 mg Tablet 1 TAB PO (19:46)
[2022-12-25] MEDS: pantoprazole 40 mg SDV IVP (19:46)
--- NOTE | 2022-12-25 19:59 | PC.NURSE ---
Addendum entered by Sera Messer RN 12/25/22 20:17: Spoke with Dr Dhillon to verify Toradol due to patient's liver function. Received instructions to not give toradol as ordered and got an order for Dilaudid 0.4MG IVP to be given once. Original Note: Patient reports feeling the worst I have every felt. Pain 9/10. Hydrocodone given as ordered. Informed Dr Dhillon. Received onetime order for Toradol 15mg IVP. RBVO
[2022-12-25] MEDS: HYDROmorphone 1 mg/mL INJ 1 mL 0.4 MG IVP (20:25)
[2022-12-25 21:10] LABS: Glucose Point of Care 129 mg/dL (70-110)
[2022-12-25] MEDS: ipratropium-albuterol 3 mL Neb INHALATION (22:16)
[2022-12-25 23:03] LABS: Glucose Point of Care 137 mg/dL (70-110)
[2022-12-26] VITALS (18 sets, daily range): BP systolic 99–125; BP diastolic 59–67; PULSE 72–95; RESP 16–30; TEMP 36.3–37.2; O2SAT 86–94
[2022-12-26] MEDS: HYDROcodone-acetaminophen 5-325 mg Tablet 1 TAB PO ×2 (02:09→21:16)
--- NOTE | 2022-12-26 02:20 | PC.NURSE ---
Assisted patient up to chair x2 assist. Patient tolerated fair. Patient continues to have episodes of urinary incontinence. Patient cleaned and barrier gel applied to areas of shear. Will continue to monitor.
[2022-12-26] MEDS: ipratropium-albuterol 3 mL Neb INHALATION ×4 (03:26→19:38)
--- NOTE | 2022-12-26 04:04 | PC.NURSE ---
Patient returned to bed x1 assist. Patient resting comfortably at this time. Will continue to monitor.
[2022-12-26] MEDS: lisinopril 20 mg Tablet PO (05:17)
[2022-12-26] MEDS: levothyroxine 125 mcg Tablet PO (05:17)
[2022-12-26] MEDS: heparin 5,000 unit/mL INJ 1 mL 5000 UNIT SUBCUT ×2 (05:17→16:53)
[2022-12-26] MEDS: potassium chloride ER 20 mEq Tablet 40 MEQ PO (05:17)
[2022-12-26 05:51] LABS: Hematocrit 42.4 % (37-53); Mean Corpuscular HGB Conc 32.5 g/dL (30-55); Mean Corpuscular Hemoglobin 31.3 pg (27-33); Mean Corpuscular Volume 96.1 fl (82-101); Mean Platelet Volume 12.2 fL (7.4-10.4); Platelet Count 87 10^3/cmm (157-399); Red Blood Count 4.41 10^6/uL (3.85-5.65); Red Cell Distribution Width 15.9 % (12.1-15.1); White Blood Count 17.85 10^3/uL (3.29-11.43)
[2022-12-26 06:11] LABS: Alanine Aminotransferase 133 U/L (0-41); Albumin Level 2.9 g/dL (3.5-5.2); Alkaline Phosphatase 318 U/L (40-130); Aspartate Amino Transferase 117 U/L (0-40); Blood Urea Nitrogen 32 mg/dL (8-23); Calcium 8.8 mg/dL (8.5-10.5); Carbon Dioxide 32 mmol/L (22-29); Chloride 94 mmol/L (98-107); Globulin 2.8 g/dL (1.3-4.6); Glomerular Filtration Rate 75.5 mL/min (90-130); Glucose 142 mg/dL (65-115); Osmolality Calculated 297 mOsm/kg (285-295); Sodium 139 mmol/L (136-145); Total Protein 5.7 g/dL (6.6-8.7)
[2022-12-26 06:15] LABS: Magnesium 2.9 mg/dL (1.7-2.3); Phosphorus 2.5 mg/dL (2.5-4.5)
[2022-12-26 06:17] LABS: Total Bilirubin 9.7 mg/dL (0.15-1.2)
[2022-12-26] MEDS: peg /e-lyte soln 4,000 mL Btl 4000 ML PO (06:27)
[2022-12-26 06:28] LABS: Glucose Point of Care 132 mg/dL (70-110)
[2022-12-26 06:32] LABS: Slide Review Slide Review Perform
[2022-12-26 06:33] LABS: Absolute Segmented Neutrophil 14.8 10/cmm (1.6-7.1); Band Neutrophils Absolute 0.2 10^3/cmm (0.0-1.2); Eosinophils 0 %; Lymphocytes 10 %; Lymphocytes Absolute 1.8 10^3/cmm (1.2-3.4); Monocytes Absolute 0.2 10^3/cmm (0.1-0.6); Platelet Estimate Normal (Normal); Segmented Neutrophils 83 %; Total Cells Counted 100 (0-100)
[2022-12-26] MEDS: FUROsemide 40 mg Tablet PO (09:52)
[2022-12-26] MEDS: bisacodyl 5 mg Tablet 10 MG PO (09:52)
[2022-12-26] MEDS: lactulose oral liq 20 gm/30 mL UDC 10 GM PO (09:52)
[2022-12-26] MEDS: spironolactone 25 mg Tablet PO ×2 (09:52→17:02)
[2022-12-26] MEDS: folic acid 1 mg Tablet PO ×2 (09:52→17:02)
[2022-12-26] MEDS: metoprolol tartrate 25 mg Tablet PO ×2 (09:52→21:16)
--- NOTE | 2022-12-26 12:03 | P.PN_ITS ---
Subjective Subjective: No acute events. Laying comfortably in bed. Seen with daughter at bedside. Denies any nausea, vomiting, headache. Has remained hemodynamically stable and afebrile. Lower limb swelling continues to go down. Blood work appreciated. Vitals/I&O/Wt Last Vital Signs Temp 97.9 F 12/26/22 08:00 Pulse 95 12/26/22 08:03 Resp 24 H 12/26/22 08:00 BP 109/59 12/26/22 08:00 Pulse Ox 91 12/26/22 08:00 O2 Del Method Nasal Cannula 12/26/22 08:00 O2 Flow Rate 3 12/26/22 08:00 12/25/22 12/26/22 12/26/22 22:59 06:59 14:59 Intake Total 500 / 940 118 / 118 Balance 500 / 710 118 / 118 Weight last 48 hrs Weight 127.369 kg Weight 121.648 kg Weight 126.779 kg Physical Exam Narrative: General: No acute distress, AO x3, icteric HEENT: PERRLA, pupils bilaterally equal and reactive Chest: Normal vesicular breath sounds, no added sounds, equal good air entry bilaterally CVS: S1-S2 regular, no murmurs, no tachycardia, no gallops, no rubs Abdomen: Soft, nontender, no organomegaly, bowel sounds present Neuro: No focal deficits, no facial deformity, AO x3, power 5/5 in all limbs Urinary Catheter Management: Coleman: Cath Placed During This Visit: yes Reason for Continuing Indwelling Catheter: Acute Urinary Retention or Obstr uction Urinary Catheter Date of Insertion: 12/20/22 Urinary Catheter Time of Insertion: 19:49 Data 12/26/22 04:24 12/26/22 04:24 Micro: Microbiology 12/20/22 19:37 Blood Culture - Final Blood NO GROWTH AFTER 5 DAYS 12/20/22 18:07 Blood Culture - Final Blood NO GROWTH AFTER 5 DAYS A&P Assessment and plan (1) Anasarca: Most likely in setting of chronic liver disorder though patient does have mild hypoalbuminemia. Echocardiogram shows an EF of 70% with normal diastolic function, RVSP of 25 mmHg with no significant valvular abnormality Monitor electrolytes. Lasix oral 40 mg daily. Aldactone 25 mg twice daily. Acetazolamide stopped. Continue with lymphedema wraps. Out of bed to chair. Patient seems to be nicolas roaching his dry body weight. Fluid restriction up to 1500 cc. Strict input output charting. Daily weights. (2) Acute hypokalemia: Most likely in setting of diuresis. Continue with home dose of 40 mg orally. Replace 30 mmol of potassium phosphate which will replace both potassium and phosphorus. (3) Leukocytosis: With left shift. Infectious cause so far unlikely and not found. Patient does not have any ascites, UTI, chest x-ray does not show any pneumonia. Patient has remained hemodynamically stable and afebrile for last 24 hours while being off antibiotics. Follow-up blood cultures, MRSA swab. For now we will continue to hold off on a ntibiotics. Check peripheral smear. (4) Transaminitis: Patient does have history of chronic alcoholism. Most likely in setting of acute alcoholic hepatitis. Family does state patient grows his own CBD. Cannot rule out in setting of herbal product ingestion. Appreciate gallbladder ultrasound and CT abdomen pelvis results. No gallbladder or pancreatic pathology. Does have echogenic opacities in all the lobes of the liver. Appreciate MRI abdomen and MRCP results. Concerns for malignancy secondary to high circumscribed masses. Patient will most likely need a liver biopsy. Plan for colonoscopy as an outpatient. Repeat INR in a.m. HIV, hepatitis panel negative. Monitor daily for now. Child- Denson score-10 (5) DVT (deep venous thrombosis): Appreciate resolution of DVT on recent lower limb Doppler. Discontinue Xarelto. Switch to heparin 5000 every 12 hourly depending on the INR level. (6) Hyperbilirubinemia: (7) Hepatic dysfunction: (8) Supratherapeutic INR: (9) Liver masses: Plan Generalized weakness: Most likely in setting of hypokalemia along with extensive anasarca. PT evaluation. Hypothyroidism Obesity Full code Cardiac diet, fluid restriction Switch to 5000 every 12 heparin twice daily for DVT prophylaxis. Protonix for PUD prophylaxis Plan for today: Continue with current diuretic therapy. Monitor electrolytes including magnesium and potassium daily. Potassium currently 4. Continues to have stable leukocytosis. Awaiting peripheral smear. Thro mbocytopenia most likely in setting of chronic alcoholism. Continue with lymphedema wrap. Continue with bowel prep for colonoscopy in a.m. Appreciate surgical recommendations.. Continue clear liquid diet for now, n.p.o. after midnight. Discharge plan: Plan to discharge to SNF. Case management alerted. Discussed in detail with patient and patient's brother and other family members at bedside. All the questions were answered. Attestations Medical Necessity Statement*: Requires further hospitalization for management of transaminitis in setting of acute alcoholic hepatitis, possible liver mets while further malignant work-up with colonoscopy is awaited and safe discharge planning to SNF is sought Diagnoses Anasarca R60.1 Acute hypokalemia E87.6 Leukocytosis D72.829 Transaminitis R74.01 DVT (deep venous thrombosis) I82.409 Hyperbilirubinemia E80.6 Hepatic dysfunction K76.9 Supratherapeutic INR R79.1 Liver masses R16.0
[2022-12-26 12:50] LABS: Glucose Point of Care 171 mg/dL (70-110)
[2022-12-26] MEDS: insulin lispro 100 unit/1 mL SUBCUT ×3 (12:53→22:10)
[2022-12-26 16:51] LABS: Glucose Point of Care 155 mg/dL (70-110)
--- NOTE | 2022-12-26 16:53 | PM.CONSULT ---
Providers/Reason For Consult Consulting Physician/Specialty*: Dr. Ceasar oMtt, DO/General surgery Reason for Consult*: Liver masses Attending Physician: Darren López MD Primary Care Provider: LINH Grossman History of Present Illness History of Present Illness Campos Olivo is a 62 year old male, with a history of alcoholism, presented to the hospital with fatigue and anasarca. He denies any abdominal pain nausea or emesis. During his work-up he was found to have extensive liver masses without a known primary. General surgery was consulted for possible colonoscopy and surgery for primary. Review of Systems General: Reports: 10 or more systems reviewed and unremarkable except in HPI and below Medications/Allergies Home Medications Medication Instructions Recorded Confirmed Last Taken Type cyclobenzaprine 10 mg tablet 10 mg PO TID PRN Muscle Spasm 05/01/20 12/20/22 Unknown History levothyroxine 125 mcg capsule 125 mcg PO QAM 05/01/20 12/20/22 12/19/22 History lisinopril 20 mg tablet 20 mg PO QAM 05/01/20 12/20/22 12/19/22 History potassium chloride 20 mEq 20 meq PO QAM 12/11/21 12/20/22 12/19/22 History tablet,extended release acetaminophen 325 mg capsule 650 mg PO QID PRN Pain 12/03/22 12/20/22 12/02/22 History (Tylenol) albuterol sulfate 90 mcg/actuation 2 inh inhalation Q4H PRN shortness 12/03/22 12/20/22 Unknown Rx aerosol inhaler of breath or wheezing #18 grams diphenhydramine 25 2 tab PO QPM PRN Pain 12/03/22 12/20/22 Unknown History mg-acetaminophen 500 mg tablet (Tylenol PM Extra Strength) budesonide-formoterol HFA 160 1 inh inhalation BID 12/20/22 12/20/22 12/19/22 History mcg-4.5 mcg/actuation aerosol inhaler (Symbicort) doxycycline hyclate 100 mg capsule 100 mg PO BID 12/20/22 12/20/22 12/19/22 History furosemide 20 mg tablet 20 mg PO QAM 12/20/22 12/20/22 12/19/22 History loratadine 10 mg tablet (Claritin) 10 mg PO DAILY 12/20/22 12/20/22 12/19/22 History rivaroxaban 20 mg tablet (Xarelto) 20 mg PO QAM 12/20/22 12/20/22 12/19/22 History Allergies Allergy/AdvReac Type Severity Reaction Status Date / Time No Known Allergies Allergy Verified 12/11/21 16:40 Current Medications Generic Name Dose Route Start Last Admin Trade Name Freq PRN Reason Stop Dose Admin Hydrocodone Bitart/Acetaminophen 1 tab 12/22/22 09:24 12/26/22 02:09 Hydrocodone-Acetaminophen 5-325 Mg Tablet PO 1 tab Q6H PRN Administration MODERATE PAIN Albuterol/Ipratropium 3 ml 12/20/22 20:00 12/26/22 14:28 Ipratropium-Albuterol 3 Ml Neb INHALATION 3 ml Q6H.RESP ROSIE Administration Folic Acid 1 mg 12/22/22 18:00 12/26/22 09:52 Folic Acid 1 Mg Tablet PO 1 mg BID ROSIE Administration Furosemide 40 mg 12/23/22 09:00 12/26/22 09:52 Furosemide 40 Mg Tablet PO 40 mg DAILY ROSIE Administration Heparin Sodium (Porcine) 5,000 unit 12/22/22 16:00 12/26/22 16:53 Heparin 5,000 Unit/Ml Inj 1 Ml SUBCUT 5,000 unit Q12H ROSIE Administration Insulin Human Lispro 0 unit 12/23/22 12:00 12/26/22 12:53 Insulin Lispro 100 Unit/1 Ml SUBCUT 2 unit WM&BEDTIME ROSIE Administration Protocol Lactulose 10 gm 12/23/22 14:15 12/26/22 09:52 Lactulose Oral Liq 20 Gm/30 Ml Udc PO 10 gm DAILY ROSIE Administration Protocol Levothyroxine Sodium 125 mcg 12/21/22 06:00 12/26/22 05:17 Levothyroxine 125 Mcg Tablet PO 125 mcg QAM ROSIE Administration Lisinopril 20 mg 12/21/22 06:00 12/26/22 05:17 Lisinopril 20 Mg Tablet PO 20 mg QAM ROSIE Administration Metoprolol Tartrate 25 mg 12/25/22 13:40 12/26/22 09:52 Metoprolol Tartrate 25 Mg Tablet PO 25 mg BID@0900,2100 ROSIE Administration Pantoprazole Sodium 40 mg 12/20/22 19:52 12/25/22 19:46 Pantoprazole 40 Mg Sdv IVP 40 mg Q24H ROSIE Administration Potassium Chloride 40 meq 12/23/22 06:00 12/26/22 05:17 Potassium Chloride Er 20 Meq Tablet PO 40 meq QAM ROSIE Administration Spironolactone 25 mg 12/21/22 18:00 12/26/22 09:52 Spironolactone 25 Mg Tablet PO 25 mg BID ROSIE Administration PFSH Acute PFSH: Medical History Alcohol abuse 24 oz Smirnoff DVT (deep venous thrombosis) HTN (hypertension) Hypothyroid Lymphedema Surgical History H/O laminectomy Family History Other Cancer Hypertension Social History Smoking and tobacco/nicotine status: former use of tobacco/nicotine Alcohol intake: current Substance/Drug Use: current Substance/Drug use type: Marijuana Caregiver/support person: Yes Lives independently: Yes Household members: none Housing: House Marital status: Single Vitals/I&O/Wt Last Vital Signs Temp 98.8 F 12/26/22 16:00 Pulse 87 12/26/22 16:00 Resp 23 H 12/26/22 16:00 BP 99/67 12/26/22 16:00 Pulse Ox 89 L 12/26/22 16:00 O2 Del Method Nasal Cannula 12/26/22 16:00 O2 Flow Rate 3 12/26/22 16:00 12/26/22 12/26/22 12/26/22 06:59 14:59 22:59 Intake Total 500 / 940 118 / 118 Balance 500 / 710 118 / 118 Weight last 48 hrs Weight 285 lb Weight 280 lb 12.8 oz Weight 268 lb 3 oz Weight 279 lb 8 oz Physical Exam Narrative: General : Patient is well developed , no acute distress, oriented x3 Head : Normal cephalic, a-traumatic. Ears : Pinnae and external canal are normal. Hearing is normal. Eyes : PERRLA, Sclera and injection are normal. No conjunctival discharge. Nose : Mucous membranes are without erythema. Throat : buccal mucosa is normal, gums are without significant recession or hypertrophy. Lungs : Equal chest rise bilaterally, no use of accessory muscles, trachea is midline. Cor : Rate and rhythm are normal. Abdomen : Soft, ND, NT, no g/r/m Extremities : Bilateral lower extremity edema, no cyanosis or clubbing, dorsalis pedis pulses are present bilaterally, non-tender to palpation of calves. Upper extremities are normal bilaterally. Back : non-tender to palpation, no CVA tenderness. Neuro : CN II - XII intact, Upper and lower extremities have equal and full strength Urinary Catheter Management: Coleman: Cath Placed During This Visit: yes Reason for Continuing Indwelling Catheter: Acute Urinary Retention or Obstruction Urinary Catheter Date of Insertion: 12/20/22 Urinary Catheter Time of Insertion: 19:49 Data 12/26/22 04:24 12/26/22 04:24 Micro: Microbiology 12/20/22 19:37 Blood Culture - Final Blood NO GROWTH AFTER 5 DAYS 12/20/22 18:07 Blood Culture - Final Blood NO GROWTH AFTER 5 DAYS A&P Assessment and plan (1) Liver masses: Plan Colonoscopy The risks and benefits of the procedure, including bleeding, infection, intestinal perforation requiring surgery, missed lesion were explained to the patient. The patient is understanding of the risks and wishes to proceed. He has not drank almost any of his prep today. We will switch to 2 bottles of magnesium citrate. Coding Level of Care Code 57674 Diagnoses Liver masses R16.0
[2022-12-26] MEDS: magnesium citrate Btl 296 mL PO ×2 (17:02→19:48)
[2022-12-26] MEDS: magnesium hydroxide 30 mL UDC PO (17:06)
[2022-12-26] MEDS: pantoprazole 40 mg SDV IVP (19:57)
[2022-12-26 21:56] LABS: Glucose Point of Care 169 mg/dL (70-110)
[2022-12-27] VITALS (19 sets, daily range): BP systolic 73–110; BP diastolic 41–60; PULSE 70–90; RESP 18–25; TEMP 36.1–37; O2SAT 87–92
--- NOTE | 2022-12-27 03:46 | PC.NURSE ---
Spoke with regarding heparin SQ due at 4am and patient should be going to colonoscopy today. The patient has no scheduled time yet but has orders and received prep. said hold 4am heparin for planned procedure today.
[2022-12-27 04:20] LABS: Hematocrit 41.5 % (37-53); Mean Corpuscular HGB Conc 32.3 g/dL (30-55); Mean Corpuscular Volume 96.1 fl (82-101); Mean Platelet Volume 11.1 fL (7.4-10.4); Platelet Count 83 10^3/cmm (157-399); Red Blood Count 4.32 10^6/uL (3.85-5.65); Red Cell Distribution Width 16.2 % (12.1-15.1); White Blood Count 16.26 10^3/uL (3.29-11.43)
[2022-12-27 04:42] LABS: Magnesium 3.4 mg/dL (1.7-2.3); Phosphorus 2.5 mg/dL (2.5-4.5)
[2022-12-27 04:47] LABS: Slide Review Slide Review Perform
[2022-12-27] MEDS: lisinopril 20 mg Tablet PO (05:06)
[2022-12-27] MEDS: levothyroxine 125 mcg Tablet PO (05:06)
[2022-12-27] MEDS: potassium chloride ER 20 mEq Tablet 40 MEQ PO (05:06)
[2022-12-27 05:31] LABS: Alanine Aminotransferase 132 U/L (0-41); Albumin Level 3.1 g/dL (3.5-5.2); Alkaline Phosphatase 348 U/L (40-130); Anion Gap 17.2 (5-19); Aspartate Amino Transferase 140 U/L (0-40); Blood Urea Nitrogen 42 mg/dL (8-23); Calcium 8.9 mg/dL (8.5-10.5); Carbon Dioxide 32 mmol/L (22-29); Chloride 95 mmol/L (98-107); Globulin 2.5 g/dL (1.3-4.6); Glomerular Filtration Rate 55.8 mL/min (90-130); Glucose 144 mg/dL (65-115); Osmolality Calculated 303 mOsm/kg (285-295); Potassium 4.2 mmol/L (3.5-5.1); Sodium 140 mmol/L (136-145); Total Protein 5.6 g/dL (6.6-8.7)
[2022-12-27 05:38] LABS: Total Bilirubin 9.7 mg/dL (0.15-1.2)
[2022-12-27 06:23] LABS: Glucose Point of Care 165 mg/dL (70-110)
--- NOTE | 2022-12-27 07:06 | PM.PN ---
Vitals/I&O/Wt Last Vital Signs Temp 98.1 F 12/26/22 20:00 Pulse 78 12/27/22 05:46 Resp 25 H 12/27/22 04:00 BP 105/58 12/27/22 04:00 Pulse Ox 92 12/27/22 05:45 O2 Del Method Nasal Cannula 12/27/22 05:45 O2 Flow Rate 2 12/27/22 05:45 12/26/22 12/27/22 12/27/22 22:59 06:59 14:59 Intake Total 240 / 358 Balance 240 / 358 Weight last 48 hrs Weight 279 lb 11.2 oz Weight 285 lb Weight 280 lb 12.8 oz Weight 268 lb 3 oz Physical Exam Urinary Catheter Management: Coleman: Cath Placed During This Visit: yes Reason for Continuing Indwelling Catheter: Acute Urinary Retention or Obstruction Urinary Catheter Date of Insertion: 12/20/22 Urinary Catheter Time of Insertion: 19:49 Data 12/27/22 03:20 12/27/22 03:20 A&P Assessment and plan (1) Liver masses: Plan Colonoscopy The risks and benefits of the procedure, including bleeding, infection, intestinal perforation requiring surgery, missed lesion were explained to the patient. The patient is understanding of the risks and wishes to proceed. Attestations Medical Necessity Statement*: per primary Coding Level of Care Code Acute Code for Chg Fwd Diagnoses Liver masses R16.0
[2022-12-27] MEDS: folic acid 1 mg Tablet PO ×2 (08:18→17:20)
[2022-12-27] MEDS: metoprolol tartrate 25 mg Tablet PO ×2 (08:19→21:25)
[2022-12-27] MEDS: FUROsemide 40 mg Tablet PO (08:19)
[2022-12-27] MEDS: spironolactone 25 mg Tablet PO ×2 (08:19→17:19)
[2022-12-27] MEDS: ipratropium-albuterol 3 mL Neb INHALATION (08:23)
[2022-12-27] MEDS: sodium chloride 0.9% 1,000 ML 30 ML IV (10:37)
[2022-12-27] MEDS: FUROsemide 10 mg/mL SDV 2mL IVP (10:55)
--- NOTE | 2022-12-27 11:02 | ANES.PREANE2 ---
Pre-Anesthetic Assessment Height/Weight: Height 1.85 m Weight 126.87 kg Temp Pulse Resp BP Pulse Ox O2 Del Method O2 Flow Rate 97.7 F 78 20 H 105/56 91 Nasal Cannula 3.5 12/27/22 10:40 12/27/22 10:40 12/27/22 10:40 12/27/22 10:40 12/27/22 10:40 12/27/22 10:40 12/27/22 10:40 Operation Date: 12/27/22 12:00 Proposed Procedures p Colonoscopy(Not Applicable) - Ceasar Mott DO Familial anesthetic complications: none Was Beta Suleman taken within 24 hours: N/A Was Clonidine taken within 24 hours: N/A Last intake: Intake Last Liquid Date 12/27/22 Last Liquid Time 08:00 Last Solid Date 12/26/22 Social Alcohol and No tobacco (h/o smoking) Exam alert, oriented x 3 and regular rate & rhythm audible rhonci/rales Airway Submandibular: within normal limits Cervical ROM: within normal limits Mallampati: Class II Dentition: false (upper) Pulmonary Chronic Obstructive Pulmonary Disease Recent pneumonia CV/HEM Deep Vein Thrombosis and Hypertension CONCLUSIONS ?1. Normal left ventricular size, systolic function and increased ?wall thickness, with no regional wall motion abnormalities. Left ?ventricular ejection fraction is estimated at 70 %. Normal ?diastolic function. ?2. No significant valvular abnormality. ?3. No prior similar studies to compare. ?Yumiko Mercer MD ?(Electronically Signed) ?Final Date:? ? ? 21 December 2022 ARF Hepatic Hepatic dysfunction--ETOH related? GI Gastroesophageal Reflux Disease Metabolic Thyroid Disease [facility] Weakness Anesthetic Plan ASA status: 4 Anesthesia: MAC Medications/Allergies Home Medications Medication Instructions Recorded Confirmed Last Taken Type cyclobenzaprine 10 mg tablet 10 mg PO TID PRN Muscle Spasm 05/01/20 12/20/22 Unknown History levothyroxine 125 mcg capsule 125 mcg PO QAM 05/01/20 12/20/22 12/19/22 History lisinopril 20 mg tablet 20 mg PO QAM 05/01/20 12/20/22 12/19/22 History potassium chloride 20 mEq 20 meq PO QAM 12/11/21 12/20/22 12/19/22 History tablet,extended release acetaminophen 325 mg capsule 650 mg PO QID PRN Pain 12/03/22 12/20/22 12/02/22 History (Tylenol) albuterol sulfate 90 mcg/actuation 2 inh inhalation Q4H PRN shortness 12/03/22 12/20/22 Unknown Rx aerosol inhaler of breath or wheezing #18 grams diphenhydramine 25 2 tab PO QPM PRN Pain 12/03/22 12/20/22 Unknown History mg-acetaminophen 500 mg tablet (Tylenol PM Extra Strength) budesonide-formoterol HFA 160 1 inh inhalation BID 12/20/22 12/20/22 12/19/22 History mcg-4.5 mcg/actuation aerosol inhaler (Symbicort) doxycycline hyclate 100 mg capsule 100 mg PO BID 12/20/22 12/20/22 12/19/22 History furosemide 20 mg tablet 20 mg PO QAM 12/20/22 12/20/22 12/19/22 History loratadine 10 mg tablet (Claritin) 10 mg PO DAILY 12/20/22 12/20/22 12/19/22 History rivaroxaban 20 mg tablet (Xarelto) 20 mg PO QAM 12/20/22 12/20/22 12/19/22 History Allergies Allergy/AdvReac Type Severity Reaction Status Date / Time No Known Allergies Allergy Verified 12/11/21 16:40 Current Medications Generic Name Dose Route Start Last Admin Trade Name Freq PRN Reason Stop Dose Admin Hydrocodone Bitart/Acetaminophen 1 tab 12/22/22 09:24 12/26/22 21:16 Hydrocodone-Acetaminophen 5-325 Mg Tablet PO 1 tab Q6H PRN Administration MODERATE PAIN Albuterol/Ipratropium 3 ml 12/20/22 20:00 12/27/22 08:23 Ipratropium-Albuterol 3 Ml Neb INHALATION 3 ml Q6H.RESP ROSIE Administration Folic Acid 1 mg 12/22/22 18:00 12/27/22 08:18 Folic Acid 1 Mg Tablet PO 1 mg BID ROSIE Administration Furosemide 40 mg 12/23/22 09:00 12/27/22 08:19 Furosemide 40 Mg Tablet PO 40 mg DAILY ROSIE Administration Heparin Sodium (Porcine) 5,000 unit 12/22/22 16:00 12/27/22 03:52 Heparin 5,000 Unit/Ml Inj 1 Ml SUBCUT Not Given Q12H ROSIE Sodium Chloride 1,000 mls @ 30 mls/hr 12/27/22 10:30 12/27/22 10:37 Sodium Chloride 0.9% IV 12/28/22 10:29 30 mls/hr .Q24H ROSIE Administration Insulin Human Lispro 0 unit 12/23/22 12:00 12/27/22 07:03 Insulin Lispro 100 Unit/1 Ml SUBCUT Not Given WM&BEDTIME ROSIE Protocol Lactulose 10 gm 12/23/22 14:15 12/27/22 08:23 Lactulose Oral Liq 20 Gm/30 Ml Udc PO Not Given DAILY ROSIE Protocol Levothyroxine Sodium 125 mcg 12/21/22 06:00 12/27/22 05:06 Levothyroxine 125 Mcg Tablet PO 125 mcg QAM ROSIE Administration Lisinopril 20 mg 12/21/22 06:00 12/27/22 05:06 Lisinopril 20 Mg Tablet PO 20 mg QAM ROSIE Administration Magnesium Hydroxide 30 ml 12/20/22 19:52 12/26/22 17:06 Magnesium Hydroxide 30 Ml Udc PO 30 ml DAILY PRN Administration Constipation (see protocol) Protocol Metoprolol Tartrate 25 mg 12/25/22 13:40 12/27/22 08:19 Metoprolol Tartrate 25 Mg Tablet PO 25 mg BID@0900,2100 ROSIE Administration Pantoprazole Sodium 40 mg 12/20/22 19:52 12/26/22 19:57 Pantoprazole 40 Mg Sdv IVP 40 mg Q24H ROSIE Administration Potassium Chloride 40 meq 12/23/22 06:00 12/27/22 05:06 Potassium Chloride Er 20 Meq Tablet PO 40 meq QAM ROSIE Administration Spironolactone 25 mg 12/21/22 18:00 12/27/22 08:19 Spironolactone 25 Mg Tablet PO 25 mg BID ROSIE Administration PFSH Anesthesia Medical History Alcohol abuse 24 oz Smirnoff DVT (deep venous thrombosis) HTN (hypertension) Hypothyroid Lymphedema Surgical History H/O laminectomy Family History Other Cancer Hypertension Social History Smoking and tobacco/nicotine status: former use of tobacco/nicotine Alcohol intake: current Substance/Drug Use: current Substance/Drug use type: Marijuana Caregiver/support person: Yes Lives independently: Yes Household members: none Housing: House Marital status: Single Data Anesthesia 12/27/22 03:20 12/27/22 03:20 Short CBC 12/26/22 12/27/22 Range/Units 04:24 03:20 WBC 17.85 H 16.26 H (3.29-11.43) 10^3/uL Hgb 13.80 13.40 (11.27-16.99) g/dL Hct 42.4 41.5 (37-53) % MCV 96.1 96.1 (82-101) fl Plt Count 87 L 83 L (157-399) 10^3/cmm BMP 12/26/22 12/27/22 04:24 03:20 Sodium 139 140 Potassium 4.0 4.2 Chloride 94 L 95 L Carbon Dioxide 32 H 32 H BUN 32 H 42 H Creatinine 1.0 1.3 H Glucose 142 H 144 H Calcium 8.8 8.9 Liver Function 12/26/22 12/27/22 Range/Units 04:24 03:20 Total Bilirubin 9.7 H* 9.7 H* (0.15-1.2) mg/dL AST 117 H 140 H (0-40) U/L ALT 133 H 132 H (0-41) U/L Alkaline Phosphatase 318 H 348 H (40-130) U/L Albumin 2.9 L 3.1 L (3.5-5.2) g/dL Cardiac Studies: Echocardiogram 12/20/22
--- NOTE | 2022-12-27 11:29 | PC.SOCIAL ---
IMM Updated Updated pt's family on IMM. No questions voiced. Provided pt a copy. Initialed, dated, & timed copy in chart.
--- NOTE | 2022-12-27 13:33 | ANE.PACU2 ---
Inpatient post-anesthesia follow up: Airway intact: Yes Vital signs: Temperature 97 F Pulse Rate 82 Respiratory Rate 18 Blood Pressure 110/60 Pulse Oximetry 91 Oxygen Delivery Me thod Nasal Cannula Oxygen Flow Rate 4 Fraction of Inspir ed Oxygen Hydration adequate: Yes Nausea and vomiting: No Pain level: 2 Mental status: Baseline
[2022-12-27 16:56] LABS: Glucose Point of Care 158 mg/dL (70-110)
[2022-12-27] MEDS: heparin 5,000 unit/mL INJ 1 mL 5000 UNIT SUBCUT (17:15)
[2022-12-27] MEDS: insulin lispro 100 unit/1 mL SUBCUT (17:19)
--- NOTE | 2022-12-27 17:27 | PM.PN ---
Vitals/I&O/Wt Last Vital Signs Temp 97.4 F L 12/27/22 16:00 Pulse 83 12/27/22 16:00 Resp 25 H 12/27/22 16:00 BP 102/58 12/27/22 16:00 Pulse Ox 89 L 12/27/22 16:00 O2 Del Method Nasal Cannula 12/27/22 16:00 O2 Flow Rate 3 12/27/22 15:04 12/27/22 12/27/22 12/27/22 06:59 14:59 22:59 Intake Total 450 / 450 Output Total 750 / 750 Balance 450 / 450 -750 / -300 Weight last 48 hrs Weight 126.87 kg Weight 129.274 kg Weight 127.369 kg Weight 121.648 kg Physical Exam Urinary Catheter Management: Coleman: Cath Placed During This Visit: yes Reason for Continuing Indwelling Catheter: Acute Urinary Retention or Obstruction Urinary Catheter Date of Insertion: 12/27/22 Urinary Catheter Time of Insertion: 09: Data 12/27/22 03:20 12/27/22 03:20 A&P Assessment and plan (1) Anasarca: Secondary to chronic liver disorder Lasix oral 40 mg daily. Aldactone 25 mg twice daily. Continue with lymphedema wraps. Out of bed to chair. Fluid restriction up to 1500 cc. Strict input output charting. Daily weights. (2) Acute hypokalemia: Currently stable at 4.2 (3) Leukocytosis: With left shift. Infectious cause so far unlikely and not found. Patient does not have any ascites, UTI, chest x-ray does not show any pneumonia. Patient has remained hemodynamically stable and afebrile while being off antibiotics. MRSA nares negative. Blood cultures negative (4) Transaminitis: Likely secondary to acute alcoholic hepatitis. It is noted that patient grows his own CBD and possible herbal product ingestion as contributing factor. HIV, hepatitis panel negative. Child- Denson score-10 (5) DVT (deep venous thrombosis): Appreciate resolution of DVT on recent lower limb Doppler. Discontinued Xarelto. heparin 5000 every 12 hourly (6) Hyperbilirubinemia: Likely secondary to liver masses (7) Supratherapeutic INR: Resolved. (8) Liver masses: Per MRCP and CT scan patient has an innumerable well-circumscribed masses throughout the liver measuring up to 6 cm in diameter consistent with diffuse hepatic metastasis Colonoscopy performed for suspected malignancy. No abnormalities found on exam per Dr. Mott Plan Patient with liver metastasis of unknown etiology. It would be best to obtain a liver biopsy. I plan to meet with patient and brother tomorrow to talk about plan. Attestations Medical Necessity Statement*: Patient unable to care for self and with new findings of malignant malignancy that is already metastatic considerations must be given whether to continue hospitalization here at a higher level of care based on patient and family desires. Coding Level of Care Code Acute Code for Chg Fwd Diagnoses Anasarca R60.1 Acute hypokalemia E87.6 Leukocytosis D72.829 Transaminitis R74.01 DVT (deep venous thrombosis) I82.409 Hyperbilirubinemia E80.6 Supratherapeutic INR R79.1 Liver masses R16.0
[2022-12-27 20:30] LABS: Glucose Point of Care 135 mg/dL (70-110)
[2022-12-27] MEDS: pantoprazole 40 mg SDV IVP (21:24)
[2022-12-27] MEDS: HYDROcodone-acetaminophen 5-325 mg Tablet 1 TAB PO (21:25)
[2022-12-28] VITALS (18 sets, daily range): BP systolic 95–117; BP diastolic 45–70; PULSE 69–88; RESP 16–28; TEMP 36.4–36.8; O2SAT 88–95; BMI 35.9
[2022-12-28] MEDS: ipratropium-albuterol 3 mL Neb INHALATION (01:47)
[2022-12-28] MEDS: heparin 5,000 unit/mL INJ 1 mL 5000 UNIT SUBCUT (03:50)
[2022-12-28] MEDS: lisinopril 20 mg Tablet PO (03:50)
[2022-12-28] MEDS: HYDROcodone-acetaminophen 5-325 mg Tablet 1 TAB PO ×2 (03:50→18:30)
[2022-12-28] MEDS: potassium chloride ER 20 mEq Tablet 40 MEQ PO (03:50)
[2022-12-28] MEDS: levothyroxine 125 mcg Tablet PO (03:50)
--- NOTE | 2022-12-28 04:02 | PC.NURSE ---
Patient reports not being able to get comfortable. Patient up to side of bed several times this shift. Needs help x2 to lie back down. Patient appears weaker overall. Patient c/o pain to back, legs genrally allover pain. Medicated as ordered and documented. Will continue to monitor.
[2022-12-28 04:44] LABS: Basophils % 0.3 %; Eosinophils % 0.1 %; Hematocrit 41.8 % (37-53); Lymphocytes # 1.3 10^3/uL (0.8-4.8); Lymphocytes % 8.9 %; Mean Corpuscular HGB Conc 32.3 g/dL (30-55); Mean Corpuscular Hemoglobin 31.5 pg (27-33); Mean Corpuscular Volume 97.4 fl (82-101); Mean Platelet Volume 11.8 fL (7.4-10.4); Monocytes # 0.3 10^3/uL (0.2-0.9); Monocytes % 2.2 %; Neutrophils # 12.01 10^3/uL (1.8-7.7); Neutrophils % 80.6 %; Nucleated Red Blood Cells # 0.3 /100WBC; Nucleated Red Blood Cells % 1.8 %; Platelet Count 76 10^3/cmm (157-399); Red Blood Count 4.29 10^6/uL (3.85-5.65); Red Cell Distribution Width 16.7 % (12.1-15.1); White Blood Count 14.88 10^3/uL (3.29-11.43)
[2022-12-28 05:05] LABS: Magnesium 3.3 mg/dL (1.7-2.3); Phosphorus 2.7 mg/dL (2.5-4.5); Slide Review Slide Review Perform
[2022-12-28 05:12] LABS: Alanine Aminotransferase 135 U/L (0-41); Albumin Level 3.1 g/dL (3.5-5.2); Alkaline Phosphatase 317 U/L (40-130); Anion Gap 22.1 (5-19); Aspartate Amino Transferase 139 U/L (0-40); Blood Urea Nitrogen 51 mg/dL (8-23); Calcium 8.5 mg/dL (8.5-10.5); Carbon Dioxide 25 mmol/L (22-29); Chloride 93 mmol/L (98-107); Globulin 2.1 g/dL (1.3-4.6); Glomerular Filtration Rate 47.3 mL/min (90-130); Glucose 168 mg/dL (65-115); Osmolality Calculated 300 mOsm/kg (285-295); Potassium 4.1 mmol/L (3.5-5.1); Sodium 136 mmol/L (136-145); Total Protein 5.2 g/dL (6.6-8.7)
[2022-12-28 05:27] LABS: Total Bilirubin 10.2 mg/dL (0.15-1.2)
[2022-12-28 06:36] LABS: Glucose Point of Care 149 mg/dL (70-110)
[2022-12-28] MEDS: lactulose oral liq 20 gm/30 mL UDC 10 GM PO (08:24)
[2022-12-28] MEDS: folic acid 1 mg Tablet PO ×2 (08:24→18:31)
[2022-12-28] MEDS: metoprolol tartrate 25 mg Tablet PO ×2 (08:25→21:24)
[2022-12-28] MEDS: insulin lispro 100 unit/1 mL SUBCUT (08:25)
[2022-12-28] MEDS: spironolactone 25 mg Tablet PO ×2 (08:25→18:30)
[2022-12-28] MEDS: FUROsemide 40 mg Tablet PO (08:25)
[2022-12-28 11:31] LABS: Glucose Point of Care 165 mg/dL (70-110)
--- NOTE | 2022-12-28 14:31 | PM.PN ---
Subjective Subjective: Patient is awake and interactive today. Patient's brother is at the bedside. When I asked the patient what he knew was going on he said well I do not have cancer . The brother states that Campos is likely confused because he recalls being told there was no colon cancer. Patient denies any shortness of breath or chest pain at this time. Denies abdominal pain nausea or vomiting Vitals/I&O/Wt Last Vital Signs Temp 98.3 F 12/28/22 07:51 Pulse 85 12/28/22 13:32 Resp 20 H 12/28/22 13:32 BP 116/70 12/28/22 13:32 Pulse Ox 89 L 12/28/22 13:32 O2 Del Method Nasal Cannula 12/28/22 13:11 O2 Flow Rate 6 12/28/22 13:11 12/27/22 12/28/22 12/28/22 22:59 06:59 14:59 Intake Total 120 / 570 360 / 360 Output Total 1100 / 1100 400 / 1500 800 / 800 Balance -980 / -530 -400 / -930 -440 / -440 Weight last 48 hrs Weight 123.422 kg Weight 123.422 kg Weight 126.87 kg Physical Exam Narrative: No acute distress. Wearing 5 L nasal cannula. Neurologic alert oriented to situation partly. Heart distant heart sounds normal S1-S2 without murmurs clicks gallops or rubs Lungs diminished breath sounds Abdomen soft nontender appears distended. Positive bowel sounds Extremities wrapped with lymphedema wraps. Urinary Catheter Management: Coleman: Cath Placed During This Visit: yes Reason for Continuing Indwelling Catheter: Accurate Measurement of Urinary Output in Critically Ill Patients Urinary Catheter Date of Insertion: 12/27/22 Urinary Catheter Time of Insertion: 09: Data 12/28/22 04:10 12/28/22 04:10 A&P Assessment and plan (1) Anasarca: Secondary to chronic liver disorder Lasix oral 40 mg daily. Aldactone 25 mg twice daily. Continue with lymphedema wraps. Out of bed to chair. Fluid restriction up to 1500 cc. Strict input output charting. Daily weights. (2) Acute hypokalemia: Currently stable at 4.1 while on Lasix and Aldactone. (3) Leukocytosis: Continues to improve infectious cause so far unlikely and not found. Patient does not have any ascites, UTI, chest x-ray does not show any pneumonia. Patient has remained hemodynamically stable and afebrile while being off antibiotics. MRSA nares negative. Blood cultures negative (4) Transaminitis: Likely secondary to acute alcoholic hepatitis. It is noted that patient grows his own CBD and possible herbal product ingestion as contributing factor. HIV, hepatitis panel negative. Child- Denson score-10 per scoring per previous hospitalist. Will recalculate on discharge. (5) DVT (deep venous thrombosis): Resolution of DVT on recent lower limb Doppler. Discontinued Xarelto. Hold heparin for liver biopsy. (6) Hyperbilirubinemia: Likely secondary to liver masses (7) Supratherapeutic INR: Resolved. Will not restart anticoagulation (8) Liver masses: Per MRCP and CT scan patient has an innumerable well-circumscribed masses throughout the liver measuring up to 6 cm in diameter consistent with diffuse hepatic metastasis Colonoscopy performed for suspected malignancy. No abnormalities found on exam per Dr. Mott 12/28/2022: Explained to Campos and brother that patient has innumerable liver metastasis with an unknown primary. We discussed options of no further investigation with a life expectancy of approximately 6 months we discussed obtaining diagnosis and consideration to palliative chemotherapy. At this time patient is not a chemotherapy candidate due to his performance status however patient would like to pursue diagnosis and possibilities of palliative treatments. Plan Patient with liver metastasis of unknown etiology. Liver biopsy ordered for tomorrow. Anticoagulants are on hold Attestations Medical Necessity Statement*: Patient unable to care for self and with new findings of malignant malignancy that is already metastatic considerations must be given whether to continue hospitalization here at a higher level of care based on patient and family desires. Coding Level of Care Code Acute Code for Chg Fwd Diagnoses Anasarca R60.1 Acute hypokalemia E87.6 Leukocytosis D72.829 Transaminitis R74.01 DVT (deep venous thrombosis) I82.409 Hyperbilirubinemia E80.6 Supratherapeutic INR R79.1 Liver masses R16.0
[2022-12-28 17:28] LABS: Glucose Point of Care 170 mg/dL (70-110)
[2022-12-28 20:59] LABS: Glucose Point of Care 175 mg/dL (70-110)
--- NOTE | 2022-12-28 22:29 | PC.NURSE ---
Campos Olivo room [address] CSU, Is complaining of right ankle pain at a 9 on 1-10 scale. He has lymphedema wraps on both lower extremities. I know we are not allowed to unwrap them but he is wanting the right one loosened. He had a hydrocodone 5/325 at 18:30 q 6hr. I elevated it on pillows but he states that is not helping. Dr sifuentes was notified and gave order to remove wrap to check if there was anything concerning. Wrap removed and site was red due to edema. area was not swollen or warm to touch. Dr notified of findings and instructed to leave wrap off for shift.
[2022-12-29] VITALS (16 sets, daily range): BP systolic 86–105; BP diastolic 42–62; PULSE 81–89; RESP 19–27; TEMP 36–36.6; O2SAT 83–92
[2022-12-29] MEDS: HYDROcodone-acetaminophen 5-325 mg Tablet 1 TAB PO (00:18)
--- NOTE | 2022-12-29 00:31 | PC.NURSE ---
Patient stating pain in left ankle 9 on scale 1-10, requesting to take lymphedema wrap off. Dr oliva notified, gave telephone order to remove wrap. Wrap removed, patient stated immediate relief.
[2022-12-29] MEDS: ipratropium-albuterol 3 mL Neb INHALATION ×3 (02:20→21:05)
[2022-12-29 03:50] LABS: ABG PCO2 41.1 mmHg (35-45); ABG PH Result 7.53 (7.35-7.45); Alveolar-Arterial Oxygen Gradi 4.8 mmHg (5-10); Arterial Blood Gas Hematocrit 40.4 % (42-52); Base Excess ABG 10.7 mmol/L (-2.0-2.0); Blood Gas Sample Site Brachial, right; Blood Gas Sample Type Arterial; Carboxyhemoglobin 0.6 %THgb (0.4-20.1); HCO3 ABG 34.4 mmol/L (22-26); HGB O2 Sat 91.5 % (95-100); Ionized Calcium Level - ABG 1.1 mmol/L (1.1-1.4); Methemoglobin 0.7 % (0.4-1.5); Oxygen Device OXY MASK; Oxygen Saturation ABG 92.7; PO2 ABG 62.8 mmHg (80.0-100.0); Potassium Level - ABG 3.8 mmol/L (3.5-5.0); Total Hemoglobin 13.2 g/dL (14-18)
--- NOTE | 2022-12-29 05:40 | CTR_ITS ---
PROCEDURE INFORMATION: Exam: CTA Chest With Contrast Exam date and time: 12/29/2022 6:51 AM Age: 62 years old Clinical indication: Other: Hypoxia; Additional info: Hypoxia, soft BP TECHNIQUE: Imaging protocol: Computed tomographic angiography of the chest with contrast. Exam focused on the arteries. 3D rendering (Not supervised by radiologist): MIP and/or 3D reconstructed images were created by the technologist. Radiation optimization: All CT scans at this facility use at least one of these dose optimization techniques: automated exposure control; mA and/or kV adjustment per patient size (includes targeted exams where dose is matched to clinical indication); or iterative reconstruction. Contrast material: OMNI 350; Contrast volume: 75 ml; Contrast route: INTRAVENOUS (IV); REPORTING DATA: Count of CT and Cardiac NM exams in prior 12 months: This patient has received [address] and 0 known cardiac nuclear medicine studies in the 12 months prior to the current study. COMPARISON: CR XR chest 1V portable [id number] 12/20/2022 11:17 AM RADIATION DOSE METRICS: Total DLP (mGy-cm): 686.21 FINDINGS: Pulmonary arteries: Normal. No pulmonary emboli. Aorta: Unremarkable. No aortic aneurysm. No aortic dissection. Lungs: There is a conglomerate right mediastinal/hilar mass measuring 6.2 cm AP x 6.5 cm transverse x 6.3 cm craniocaudad which encases and partially compresses the central right upper lobe bronchovascular structures. There is also extensive mediastinal and bilateral hilar lymphadenopathy. There is mild to moderate COPD. There is complete atelectasis of the left lower lobe. There is mild right lower lobe dependent atelectasis. There is thickening of the orozco of the main right upper lobe bronchus. There is partial mucoid impaction of the right upper lobe bronchi. Pleural spaces: Unremarkable. No pneumothorax. No pleural effusion. Heart: Unremarkable. No cardiomegaly. No pericardial effusion. Coronary arteries: Mild coronary artery calcifications are identified. Lymph nodes: See Lungs finding. Liver: The liver is enlarged and cirrhotic. Adrenal glands: There is bilateral nodularity of the adrenal glands. Bones/joints: Unremarkable. No acute fracture. Soft tissues: Unremarkable. CT/CT angio chest PE protcl [id number] IMPRESSION: 1. Conglomerate right mediastinal/right hilar mass which encases and partially compresses the central right upper lobe bronchovascular structures. There is also extensive mediastinal and bilateral hilar lymphadenopathy. 2. Partial mucoid impaction of the right upper lobe bronchi. 3. COPD. Complete left lower lobe atelectasis. Mild right basilar dependent atelectasis. 4. Hepatic cirrhosis and hepatomegaly.
--- NOTE | 2022-12-29 05:51 | PC.NURSE ---
Dr oliva assessed patient and ordered a CT and NPO until speech can assess patient. Patient oxygen requirements have increased to 15L per oxy mask during shift. Blood gas was done. See lab report.
[2022-12-29 06:32] LABS: Glucose Point of Care 159 mg/dL (70-110)
[2022-12-29 06:45] LABS: Hematocrit 38.8 % (37-53); Mean Corpuscular HGB Conc 33.5 g/dL (30-55); Mean Corpuscular Hemoglobin 31.6 pg (27-33); Mean Corpuscular Volume 94.2 fl (82-101); Mean Platelet Volume 11.9 fL (7.4-10.4); Platelet Count 70 10^3/cmm (157-399); Red Blood Count 4.12 10^6/uL (3.85-5.65); Red Cell Distribution Width 16.7 % (12.1-15.1); White Blood Count 13.85 10^3/uL (3.29-11.43)
[2022-12-29 07:00] LABS: Alanine Aminotransferase 134 U/L (0-41); Albumin Level 2.8 g/dL (3.5-5.2); Alkaline Phosphatase 316 U/L (40-130); Anion Gap 19.4 (5-19); Aspartate Amino Transferase 151 U/L (0-40); Blood Urea Nitrogen 49 mg/dL (8-23); Calcium 8.8 mg/dL (8.5-10.5); Carbon Dioxide 31 mmol/L (22-29); Chloride 97 mmol/L (98-107); Globulin 2.7 g/dL (1.3-4.6); Glomerular Filtration Rate 55.8 mL/min (90-130); Glucose 164 mg/dL (65-115); Osmolality Calculated 313 mOsm/kg (285-295); Potassium 4.4 mmol/L (3.5-5.1); Sodium 143 mmol/L (136-145); Total Protein 5.5 g/dL (6.6-8.7)
[2022-12-29] MEDS: iohexol 350 mg/mL 500 mL Btl (per mL) IV (07:00)
[2022-12-29 07:34] LABS: Total Bilirubin 10.2 mg/dL (0.15-1.2)
[2022-12-29 07:36] LABS: Slide Review Slide Review Perform
[2022-12-29 07:37] LABS: Absolute Segmented Neutrophil 11.9 10/cmm (1.6-7.1); Band Neutrophils Absolute 0.8 10^3/cmm (0.0-1.2); Corrected White Blood Count 13.1 10^3/cmm (4.8-10.8); Eosinophils 0 %; Lymphocytes 2 %; Lymphocytes Absolute 0.3 10^3/cmm (1.2-3.4); Monocytes Absolute 0.3 10^3/cmm (0.1-0.6); Segmented Neutrophils 86 %; Total Cells Counted 100 (0-100)
[2022-12-29 07:38] LABS: Absolute Neutrophil 12.7 10^3/cmm (1.4-6.5); Anisocytosis Trace; Platelet Estimate Decreased (Normal)
--- NOTE | 2022-12-29 11:15 | PC.SOCIAL ---
IMM Updated Updated pt on IMM. No questions voiced. Provided pt a copy. Initialed, dated, & timed copy in chart.
--- NOTE | 2022-12-29 11:23 | PC.OT ---
OT TREATMENT HELD THIS DATE PER DISCUSSION WITH NURSING. YESTERDAY'S LYMPHEDEMA WRAPS WERE CAUSING PAIN DURING [facility]ER AND WERE REMOVED.
[2022-12-29 11:41] LABS: Glucose Point of Care 171 mg/dL (70-110)
--- NOTE | 2022-12-29 12:38 | PC.NURSE ---
Provider is notified that patient is complaining of liver/kidney pain. Provider ordered morphine 2mg IVP.
[2022-12-29] MEDS: morphine 4 mg/mL SDV 1 mL 2 MG IVP (12:49)
--- NOTE | 2022-12-29 14:36 | PM.PN ---
Subjective Subjective: Patient's overnight oxygenation requirements went up. A stat CTA of the chest was performed which unfortunately showed a 6 x 6 x 6 cm mass in the right upper lobe encompassing the bronco vascular structures. There was significant bilateral mediastinal or and hilar lymphadenopathy. Along with atelectasis of the left lower lower lobe and evidence of mucous plugging. Vitals/I&O/Wt Last Vital Signs Temp 96.8 F L 12/29/22 11:57 Pulse 87 12/29/22 11:57 Resp 25 H 12/29/22 12:49 BP 105/59 12/29/22 11:57 Pulse Ox 90 12/29/22 12:49 O2 Del Method Oxymask 12/29/22 11:57 O2 Flow Rate 15 12/29/22 11:57 12/28/22 12/29/22 12/29/22 22:59 06:59 14:59 Intake Total 120 / 480 Output Total 550 / 1350 450 / 1800 350 / 350 Balance -430 / -870 -450 / -1320 -350 / -350 Weight last 48 hrs Weight 131.088 kg Weight 123.422 kg Weight 123.422 kg Physical Exam Narrative: Appears more acute on chronically ill today. He keeps his eyes closed mostly. And he is now on 15 L via mask Neurologic he is alert oriented to situation Heart distant heart sounds normal S1-S2 without murmurs clicks gallops or rubs Lungs diminished breath sounds with rhonchi on the right anterior chest. Abdomen soft nontender appears distended. Positive bowel sounds Extremities lymphedema wraps were taken off due to pain last night. He has trace to +1 edema of the lower extremities Urinary Catheter Management: Coleman: Cath Placed During This Visit: yes Reason for Continuing Indwelling Catheter: Accurate Measurement of Urinary Output in Critically Ill Patients Urinary Catheter Date of Insertion: 12/27/22 Urinary Catheter Time of Insertion: 09:23 Data 12/29/22 06:36 12/29/22 06:36 A&P Assessment and plan (1) Acute respiratory failure: (2) Mass of upper lobe of right lung: (3) Hilar lymphadenopathy: (4) Mediastinal adenopathy: (5) Liver masses: Per MRCP and CT scan patient has an innumerable well-circumscribed masses throughout the liver measuring up to 6 cm in diameter consistent with diffuse hepatic metastasis Colonoscopy performed for suspected malignancy. No abnormalities found on exam per Dr. Mott 12/28/2022: Explained to Campos and brother that patient has innumerable liver metastasis with an unknown primary. We discussed options of no further investigation with a life expectancy of approximately 6 months we discussed obtaining diagnosis and consideration to palliative chemotherapy. At this time patient is not a chemotherapy candidate due to his performance status however patient would like to pursue diagnosis and possibilities of palliative treatments. (6) Anasarca: Secondary to chronic liver disorder Lasix oral 40 mg daily. Aldactone 25 mg twice daily. Continue with lymphedema wraps. Out of bed to chair. Fluid restriction up to 1500 cc. Strict input output charting. Daily weights. (7) Acute hypokalemia: Currently stable at 4.1 while on Lasix and Aldactone. (8) Leukocytosis: Continues to improve infectious cause so far unlikely and not found. Patient does not have any ascites, UTI, chest x-ray does not show any pneumonia. Patient has remained hemodynamically stable and afebrile while being off antibiotics. MRSA nares negative. Blood cultures negative (9) Transaminitis: Likely secondary to acute alcoholic hepatitis. It is noted that patient grows his own CBD and possible herbal product ingestion as contributing factor. HIV, hepatitis panel negative. Child- Denson score-10 per scoring per previous hospitalist. Will recalculate on discharge. (10) DVT (deep venous thrombosis): Resolution of DVT on recent lower limb Doppler. Discontinued Xarelto. Hold heparin for liver biopsy. (11) Hyperbilirubinemia: Likely secondary to liver masses (12) Supratherapeutic INR: Resolved. Will not restart anticoagulation Plan Had a long discussion with patient and his brother Pedro. I explained to them that the CT findings suggest a right upper lobe lung mass most likely the etiology of cancer. It appears this mass is encompassing the bronchus and causing obstruction there is mucous plugging found on the CT and significant atelectasis in the lower lobes. This explains 2 things 1 underlying etiology of cancer and to the reason for acute hypoxia. He probably experienced a mucous plugging through the night. We next discussed what to do about his current condition. I explained that a bronchoscopy for both therapeutic and diagnostic reasoning would be appropriate however he is at high risk for requiring intubation. While initially he discussed he would agree for intubation for 2 to 3 days we discussed the realities of this situation. Unfortunately he would be at high risk for prolonged intubation and then without discussion of his wishes it would be difficult to know how to proceed for his brother Pedro. When we discussed the risk and benefits and that the ultimate outcome is that his cancer is not curable the patient made it clear to both myself and Pedro that he would not want to be intubated. We discussed how we could proceed with treating him best and I explained comfort measures treating his symptoms of shortness of breath his symptoms of pain any nausea or other symptoms he may experience in the dying process. We discussed what would happen in a catastrophic event of his heart stopping on his breathing stopping and he agrees for to forego the procedure of resuscitation. That order has been completed. Next we talked about where care would be received and they wished to talk privately. At this time his care has been changed to a comfort care set. He is DNR/DNI. He is allowed a comfort diet with avoiding foods that would cause any choking or coughing. Jose SMITH was present for some of this discussion and understands the care plan. Attestations Medical Necessity Statement*: Patient with worsening medical condition requiring high levels of oxygen and supportive care. He is receiving comfort measures as this care cannot be given and other vitamin at this time. Coding Level of Care Code Acute Code for [facility] Fwd Diagnoses Acute respiratory failure J96.00 Mass of upper lobe of right lung R91.8 Hilar lymphadenopathy R59.0 Mediastinal adenopathy R59.0 Liver masses R16.0 Anasarca R60.1 Acute hypokalemia E87.6 Leukocytosis D72.829 Transaminitis R74.01 DVT (deep venous thrombosis) I82.409 Hyperbilirubinemia E80.6 Supratherapeutic INR R79.1
[2022-12-29 16:40] LABS: Glucose Point of Care 171 mg/dL (70-110)
[2022-12-29] MEDS: morphine 4 mg/mL SDV 1 mL IVP (18:58)
[2022-12-30] VITALS (13 sets, daily range): BP systolic 87–103; BP diastolic 52–60; PULSE 79–93; RESP 19–31; TEMP 36.6–36.9; O2SAT 78–90
[2022-12-30] MEDS: ipratropium-albuterol 3 mL Neb INHALATION (02:28)
[2022-12-30] MEDS: morphine 4 mg/mL SDV 1 mL IVP ×5 (02:43→19:47)
[2022-12-30] MEDS: blistex lip oint 7 gm Tube 1 APPLIC TOPICAL (11:03)
--- NOTE | 2022-12-30 12:30 | P.DS_ITS ---
Discharge Providers Date of Admission: 12/20/22 16:00 Date of Discharge: December 30, 2022 Attending Provider at Admission: Darren López MD Attending Provider at Discharge: Dar Peter DO Primary Care Provider: LINH Grossman Diagnoses at Discharge Discharge Diagnosis (1) Acute respiratory failure: Status: Acute (2) Mass of upper lobe of right lung: Status: Acute (3) Hilar lymphadenopathy: Status: Acute (4) Mediastinal adenopathy: Status: Acute (5) Liver masses: Status: Acute (6) Anasarca: Status: Acute (7) Acute hypokalemia: Status: Acute (8) Leukocytosis: Status: Acute (9) Transaminitis: Status: Acute (10) DVT (deep venous thrombosis): Status: Acute (11) Hyperbilirubinemia: Status: Acute (12) Supratherapeutic INR: Status: Acute Reason for Visit Reason for Visit: legs swollen, sob, weakness Brief History: Campos Olivo is a 62 year old male with past medical history of alcohol abuse though has not consumed alcohol over the last 2 weeks, hypertension, DVT on Xarelto for over last 1 year, bilateral lymphedema presented to the ER today because of generalized weakness, increasing swelling in his lower limbs over the last 10 days not responding to trial of oral Lasix as an outpatient.? Patient otherwise denies any changes in his medications recently, difficulty in breathing but does complain of decreased appetite, increasing abdominal girth and difficulty to stand up because of increasing lower limb swelling.? Denies any skin breakthrough though states he was in past seen by wound care and was recently put on antibiotics for possible pneumonia.? He states he is to consume alcohol till around 2 weeks ago though has not consumed as he had to leave his house because of exposure to black mold. Hospital Course Hospital Course Patient was admitted for anasarca due to chronic liver disorder likely from alcohol. He also had mild congestive heart failure he was placed on IV Lasix potassium was replaced as it was low on admission. Patient did have a leukocytosis was placed on IV ceftriaxone prophylactically. His transaminases were elevated and it was noted to have echogenic opacities in the liver. Subsequently he was found to have innumerable liver metastasis. Patient's anasarca was improving with treatment and patient was going to be [facility] to a [facility] for [facility] care however placement was not able to be obtained. Conversations ensued regarding work-up of the liver metastasis and plans for liver biopsy were initiated. However subsequently he became progressively and acutely short of breath and had increasing oxygen requirements. He had a CTA for the chest which was negative for PE however the primary source of cancer was located in the right upper lobe with compression of the bronchus and vasculature. There is also mucous plugging. And other areas that are likely metastatic. With this change in his status conversation was had with Campos and his brother Pedro. Please review progress note dated 12/29/2022 for details. Campos and Pedro both agreed with comfort measures and a DO NOT RESUSCITATE status. Hospice was discussed and likely was agreeable however the brothers wanted to talk privately. On 12/30/2022 patient continued to decline mostly because he did not like the mask and he is on less oxygen. They are choosing hospice with [facility] hospice. Due to his severe decline and needs for pain control patient will be admitted to the general inpatient hospice benefit. Physical Exam Narrative: Actively dying. Eyes remain closed limited conversation. Last oxygen was low 80s on 6 to 10 L. Neurologic he is lethargic. He will give a thumbs up or say yes or shake his head but limited conversation. Heart distant heart sounds normal S1-S2 without murmurs clicks gallops or rubs Lungs diminished breath sounds audible rhonchi today coughing with ice. Abdomen soft nontender appears distended. Positive bowel sounds Extremities He has trace to +1 edema of the lower extremities Urinary Catheter Management: Coleman: Cath Placed During This Visit: yes Reason for Continuing Indwelling Catheter: Accurate Measurement of Urinary Output in Critically Ill Patients Urinary Catheter Date of Insertion: 12/27/22 Urinary Catheter Time of Insertion: 09:23 Discharge Data Studies Completed and Pending Completed Studies During Hospitalization Category Date Time Status CT abdomen pelvis w con* [id number] Stat Cat Scan 12/20/22 14:19 Completed CTA chest [CT angio chest PE protcl [id number]] Stat Cat Scan 12/29/22 05:40 Completed XR chest 1V portable [id number] Urgent Exams 12/20/22 11:11 Completed MR MRCP [id number] Routine MRI 12/22/22 08:47 Completed MR abdomen wo/w con* [id number] Routine MRI 12/22/22 08:47 [place] [id number] Urgent Ultrasound 12/20/22 18:23 Completed CV. echo complete* [id number] Routine Ultrasound 12/20/22 17:53 Completed US gall bladder [id number] Stat Ultrasound 12/20/22 13:00 Completed Radiology Impressions Chest X-Ray 12/20/22 11:11 IMPRESSION: 1. Mild pulmonary vascular congestion. 2. Small loculated effusion in the minor fissure of the right lung. Abdomen MRI 12/22/22 08:47 IMPRESSION: 1. The liver is enlarged, measuring 30 cm in length. There are innumerable well-circumscribed masses throughout the liver measuring up to 6 cm in diameter, consistent with diffuse hepatic metastases. 2. Trace perihepatic ascites noted. 3. No interval change from CT abdomen and pelvis dated 12/20/2022. COMMENTS: Consistent with the [employer]'s Incidental Findings Committee white paper (J Am Mary Kay Radiol 2018): Any incidental renal lesion less than 1 cm or classified as too small to characterize, or any incidental cystic renal lesion characterized as simple-appearing, is likely benign. No follow-up imaging is recommended for these lesions per consensus recommendations based on imaging criteria. ADDENDUM: 12/23/22 7901 A single set of images, series 801, labeled MRCP 3D are available. These images are nondiagnostic, and no comment can be made regarding the biliary system. Chest CTA 12/29/22 05:40 IMPRESSION: 1. Conglomerate right mediastinal/right hilar mass which encases and partially compresses the central right upper lobe bronchovascular structures. There is also extensive mediastinal and bilateral hilar lymphadenopathy. 2. Partial mucoid impaction of the right upper lobe bronchi. 3. COPD. Complete left lower lobe atelectasis. Mild right basilar dependent atelectasis. 4. Hepatic cirrhosis and hepatomegaly. Laboratory Results WBC 13.85 10^3/uL (3.29-11.43) H 12/29/22 06:36 Corrected WBC 13.1 10^3/cmm (4.8-10.8) H 12/29/22 06:36 RBC 4.12 10^6/uL (3.85-5.65) 12/29/22 06:36 Hgb 13.00 g/dL (11.27-16.99) 12/29/22 06:36 Hct 38.8 % (37-53) 12/29/22 06:36 MCV 94.2 fl (82-101) 12/29/22 06:36 MCH 31.6 pg (27-33) 12/29/22 06:36 MCHC 33.5 g/dL (30-55) 12/29/22 06:36 RDW 16.7 % (12.1-15.1) H 12/29/22 06:36 Plt Count 70 10^3/cmm (157-399) L 12/29/22 06:36 MPV 11.9 fL (7.4-10.4) H 12/29/22 06:36 Neut % (Auto) 80.6 % 12/28/22 04:10 Lymph % (Auto) Not Reportable 12/29/22 06:36 [place] % (Auto) Not Reportable 12/29/22 06:36 Eos % (Auto) 0.1 % 12/28/22 04:10 Baso % (Auto) 0.3 % 12/28/22 04:10 Neut # (Auto) 12.01 10^3/uL (1.8-7.7) H 12/28/22 04:10 Lymph # (Auto) Not Reportable 12/29/22 06:36 [place] # (Auto) Not Reportable 12/29/22 06:36 Eos # (Auto) 0.0 10^3/uL (0.0-0.8) 12/28/22 04:10 Baso # (Auto) 0.0 10^3/uL (0.0-0.1) 12/28/22 04:10 Nucleated RBC % (auto) 1.8 % 12/28/22 04:10 Total Counted 100 (0-100) 12/29/22 06:36 Atypical Lymphs % 0.0 % (0-5) 12/29/22 06:36 Absolute Neutrophils 12.7 10^3/cmm (1.4-6.5) H 12/29/22 06:36 Segmented Neutrophils 86 % 12/29/22 06:36 Abs Segm Neuts (Man) 11.9 10/cmm (1.6-7.1) H 12/29/22 06:36 Band Neutrophils 6.0 % 12/29/22 06:36 Abs Band Neuts (Man) 0.8 10^3/cmm (0.0-1.2) 12/29/22 06:36 Absolute Lymphocytes 0.3 10^3/cmm (1.2-3.4) L 12/29/22 06:36 Lymphocytes (Manual) 2 % 12/29/22 06:36 Monocytes (Manual) 2.0 % 12/29/22 06:36 Absolute Monocytes 0.3 10^3/cmm (0.1-0.6) 12/29/22 06:36 Eosinophils (Manual) 0 % 12/29/22 06:36 Absolute Eosinophils 0.0 10^3/cmm (0.0-0.7) 12/29/22 06:36 Basophils (Manual) 0.0 % 12/29/22 06:36 Absolute Basophils 0.0 10^3/cmm (0.0-0.2) 12/29/22 06:36 Metamyelocytes 2.0 % 12/29/22 06:36 Myelocytes 2.0 % 12/29/22 06:36 Nucleated RBCs 6.0 /100WBC (0-1) H 12/29/22 06:36 Nucleated RBCs # 0.3 /100WBC 12/28/22 04:10 Platelet Estimate Decreased (Normal) 12/29/22 06:36 Poikilocytosis Trace 12/20/22 11:25 Anisocytosis Trace 12/29/22 06:36 Peripher Smr Path Cons Sent for review 12/24/22 04:08 PT 13.90 SECONDS (12.1-14.9) 12/25/22 01:39 INR 1.04 (0.8-1.2) 12/25/22 01:39 Specimen Type Arterial 12/29/22 03:39 Sample Site Brachial, right 12/29/22 03:39 ABG pH 7.53 (7.35-7.45) H 12/29/22 03:39 ABG pCO2 41.1 mmHg (35-45) 12/29/22 03:39 ABG pO2 62.8 mmHg (80.0-100.0) L 12/29/22 03:39 ABG HCO3 34.4 mmol/L (22-26) H 12/29/22 03:39 ABG O2 Saturation 92.7 12/29/22 03:39 ABG Base Excess 10.7 mmol/L (-2.0-2.0) H 12/29/22 03:39 Vadim Test N/a 12/29/22 03:39 A-a O2 Gradient 4.8 mmHg (5-10) L 12/29/22 03:39 Hematocrit 40.4 % (42-52) L 12/29/22 03:39 Hgb O2 Saturation 91.5 % (95-100) L 12/29/22 03:39 Carboxyhemoglobin 0.6 %THgb (0.4-20.1) 12/29/22 03:39 Methemoglobin 0.7 % (0.4-1.5) 12/29/22 03:39 Total Hemoglobin 13.2 g/dL (14-18) L 12/29/22 03:39 Sodium 141.0 mmol/L (131-143) 12/29/22 03:39 Potassium 3.8 mmol/L (3.5-5.0) 12/29/22 03:39 Glucose 150.0 mg/dL (70-115) H 12/29/22 03:39 Ionized Calcium 1.1 mmol/L (1.1-1.4) 12/29/22 03:39 O2 Delivery Device Oxy mask 12/29/22 03:39 O2 Liters/Min 10.0 % 12/29/22 03:39 Cement Despatch Operator ID [email or web address] 12/29/22 03:39 Sodium 143 mmol/L (136-145) 12/29/22 06:36 Potassium 4.4 mmol/L (3.5-5.1) 12/29/22 06:36 Chloride 97 mmol/L (98-107) L 12/29/22 06:36 Carbon Dioxide 31 mmol/L (22-29) H 12/29/22 06:36 Anion Gap 19.4 (5-19) H 12/29/22 06:36 BUN 49 mg/dL (8-23) H 12/29/22 06:36 Creatinine 1.3 mg/dL (0.7-1.2) H 12/29/22 06:36 GFR Calculation 55.8 mL/min (90-130) L 12/29/22 06:36 Glucose 164 mg/dL (65-115) H 12/29/22 06:36 POC Glucose 171 mg/dL (70-110) H 12/29/22 16:28 Estimat Average Glucose 148 12/21/22 04:55 Hemoglobin A1c 6.8 % (4.0-6.0) H 12/21/22 04:55 Calculated Osmolality 313 mOsm/kg (285-295) H 12/29/22 06:36 Calcium 8.8 mg/dL (8.5-10.5) 12/29/22 06:36 Phosphorus 2.7 mg/dL (2.5-4.5) 12/28/22 04:10 Magnesium 3.3 mg/dL (1.7-2.3) H 12/28/22 04:10 Iron 96 ug/dL (59-158) 12/20/22 11:25 TIBC 184 mcg/dl 12/20/22 11:25 % Saturation 52.1 % (20-50) H 12/20/22 11:25 Unsat Iron Binding 88 ug/dL (112-347) L 12/20/22 11:25 Total Bilirubin 10.2 mg/dL (0.15-1.2) H* 12/29/22 06:36 GGT 1523 U/L (8-61) H 12/20/22 18:07 AST 151 U/L (0-40) H 12/29/22 06:36 ALT 134 U/L (0-41) H 12/29/22 06:36 Alkaline Phosphatase 316 U/L (40-130) H 12/29/22 06:36 Ammonia 53 umol/L (16-60) 12/20/22 14:05 Lactate Dehydrogenase 535 U/L (135-225) H 12/20/22 18:07 NT-Pro-B Natriuret Pep 397 pg/mL (0-125) H 12/20/22 11:25 Total Protein 5.5 g/dL (6.6-8.7) L 12/29/22 06:36 Albumin 2.8 g/dL (3.5-5.2) L 12/29/22 06:36 Globulin 2.7 g/dL (1.3-4.6) 12/29/22 06:36 Triglycerides 257 mg/dL (0-150) H 12/21/22 04:55 Cholesterol 209 mg/dL (0-200) H 12/21/22 04:55 LDL Cholesterol, Calc 129 mg/dL (50-129) 12/21/22 04:55 HDL Cholesterol 29 mg/dL (60-100) L 12/21/22 04:55 LDL/HDL Ratio 4.45 RATIO (0.00-3.22) H 12/21/22 04:55 Cholesterol/HDL Ratio 7.21 mg/dL (1.0-5.00) H 12/21/22 04:55 Tumor Marker AFP 2.3 ng/mL (0-8.3) 12/21/22 04:55 Tumor Marker HCG 1 mIU/mL (0-3) 12/21/22 04:55 Vitamin B12 716 pg/mL (232-1245) 12/20/22 11:25 Folate 3.5 ng/mL (4.5-32.2) L 12/21/22 04:55 Procalcitonin 76.29 ng/mL (0-0.5) H 12/20/22 11:25 TSH 0.52 uIU/mL (0.27-4.20) 12/20/22 11:25 Urine Color Brown (Yellow) A 12/20/22 13:49 Urine Appearance Sl hazy (CLEAR) A 12/20/22 13:49 Urine pH 5 (5-7) 12/20/22 13:49 Ur Specific [place] 1.015 (1.005-1.030) 12/20/22 13:49 Urine Protein 1+ (Negative) H 12/20/22 13:49 Urine Glucose (UA) Norm (Normal) 12/20/22 13:49 Urine Ketones 1+ (Negative) H 12/20/22 13:49 Urine Blood Trace (Negative) H 12/20/22 13:49 Urine Nitrate Negative (Negative) 12/20/22 13:49 Urine Bilirubin 3+ (Negative) H 12/20/22 13:49 Urine Urobilinogen 8 mg/dL (Negative) H 12/20/22 13:49 Ur Leukocyte Esterase Trace (Negative) H 12/20/22 13:49 Urine RBC 0-4 /hpf (0-2) H 12/20/22 13:49 Urine WBC 0-4 /hpf (0-5) H 12/20/22 13:49 Ur Squamous Epith Cells None /hpf (0-5) 12/20/22 13:49 Amorphous Sediment Not Reportable 12/20/22 13:49 Urine Bacteria Trace /hpf (NONE) 12/20/22 13:49 Ethyl Alcohol < 10 mg/dL (0-10) 12/20/22 11:25 Hepatitis A IgM Ab Non-reactive (Nonreactive) 12/20/22 11:25 Hep Bs Antigen Non-reactive (Nonreactive) 12/20/22 11:25 Hep Bs Antibody 5.5 (11.5-1000) L 12/20/22 11:25 Hep B Core Total Ab Non-reactive (Nonreactive) 12/20/22 11:25 Hepatitis C Antibody Non-reactive (Nonreactive) 12/20/22 11:25 HIV 1&2 Ab & HIV 1 Ag Non-reactive (Non-Reactiv) 12/20/22 11:25 HIV 1&2 Antibody Non-reactive (Non-Reactiv) 12/20/22 11:25 MRSA (PCR) Not detected (NOT DETECTED) 12/21/22 08:06 Vitals Last Vital Signs Temp 98.5 F 12/30/22 00:00 Pulse 86 12/30/22 11:12 Resp 27 H 12/30/22 11:12 BP 102/59 12/30/22 11:12 Pulse Ox 82 L 12/30/22 11:12 O2 Del Method Nasal Cannula 12/30/22 11:12 O2 Flow Rate 6 12/30/22 07:51 Discharge Plan Discharge Patient Disposition: Home Condition: Stable Prescriptions: Discontinued cyclobenzaprine 10 mg tablet 10 mg PO TID PRN (Reason: Muscle Spasm) levothyroxine 125 mcg capsule 125 mcg PO QAM lisinopril 20 mg tablet 20 mg PO QAM potassium chloride 20 mEq tablet extended release 20 meq PO QAM diphenhydramine-acetaminophen [Tylenol PM Extra Strength] 25-500 mg Tablet 2 tab PO QPM PRN (Reason: Pain) acetaminophen [Tylenol] 325 mg Capsule 650 mg PO QID PRN (Reason: Pain) albuterol sulfate 90 mcg/actuation HFA aerosol inhaler 2 inh INHALATION Q4H PRN (Reason: shortness of breath or wheezing) Qty: 18 0RF doxycycline hyclate 100 mg capsule 100 mg PO BID furosemide 20 mg tablet 20 mg PO QAM Claritin 10 mg Tablet 10 mg PO DAILY Symbicort 160-4.5 mcg/actuation HFA aerosol inhaler 1 inh INHALATION BID Xarelto 20 mg tablet 20 mg PO QAM Discharge Orders: Discharge Order (Routine); Ordered 12/30/22 Ordered By: Dar Peter Other Ambulatory Orders: DME: Walker (Order) Location: None Selected Ordered By: Darren López Referrals: Danielle Winston FNP [Primary Care Provider] - Discharge Attestations Time Spent in Discharge Care*: less than 30 min Quality Metrics Clinical Quality Measures [ No reported AMI, CVA or VTE this stay] Coding Level of Care Code Acute Code for [facility] Fwd Diagnoses Acute respiratory failure J96.00 Mass of upper lobe of right lung R91.8 Hilar lymphadenopathy R59.0 Mediastinal adenopathy R59.0 Liver masses R16.0 Anasarca R60.1 Acute hypokalemia E87.6 Leukocytosis D72.829 Transaminitis R74.01 DVT (deep venous thrombosis) I82.409 Hyperbilirubinemia E80.6 Supratherapeutic INR R79.1
[2022-12-30] MEDS: atropine 1% op soln 2 mL Btl 3 DROP SUBLINGUAL (14:50)
--- NOTE | 2022-12-30 16:31 | PM.HP ---
Providers/Chief Complaint Admitting Physician: Darren López MD Primary Care Provider: LINH Grossman Chief Complaint: legs swollen, sob, weakness History of Present Illness Campos Olivo is a 62 year old male who was found to have a lung mass with localized adenopathy and innumerable liver metastasis. Patient was requiring high oxygenation. Unfortunately patient was doing very poorly and would not be able to tolerate aggressive treatment or work-up. End-of-life discussion ensued with Campos and his brother and they elected hospice. Patient is clinically worsening and requiring IV pain medication secretion management and continuous nursing care. He will be admitted to general inpatient hospice. Review of Systems General: Reports: Other (Patient admitted on 12/1622, no change) Medications/Allergies Home Medications Medication Instructions Recorded Confirmed Last Taken Type cyclobenzaprine 10 mg tablet 10 mg PO TID PRN Muscle Spasm 05/01/20 12/20/22 Unknown History levothyroxine 125 mcg capsule 125 mcg PO QAM 05/01/20 12/20/22 12/19/22 History lisinopril 20 mg tablet 20 mg PO QAM 05/01/20 12/20/22 12/19/22 History potassium chloride 20 mEq 20 meq PO QAM 12/11/21 12/20/22 12/19/22 History tablet,extended release acetaminophen 325 mg capsule 650 mg PO QID PRN Pain 12/03/22 12/20/22 12/02/22 History (Tylenol) albuterol sulfate 90 mcg/actuation 2 inh inhalation Q4H PRN shortness 12/03/22 12/20/22 Unknown Rx aerosol inhaler of breath or wheezing #18 grams diphenhydramine 25 2 tab PO QPM PRN Pain 12/03/22 12/20/22 Unknown History mg-acetaminophen 500 mg tablet (Tylenol PM Extra Strength) budesonide-formoterol HFA 160 1 inh inhalation BID 12/20/22 12/20/22 12/19/22 History mcg-4.5 mcg/actuation aerosol inhaler (Symbicort) doxycycline hyclate 100 mg capsule 100 mg PO BID 12/20/22 12/20/22 12/19/22 History furosemide 20 mg tablet 20 mg PO QAM 12/20/22 12/20/22 12/19/22 History loratadine 10 mg tablet (Claritin) 10 mg PO DAILY 12/20/22 12/20/22 12/19/22 History rivaroxaban 20 mg tablet (Xarelto) 20 mg PO QAM 12/20/22 12/20/22 12/19/22 History Allergies Allergy/AdvReac Type Severity Reaction Status Date / Time No Known Allergies Allergy Verified 12/11/21 16:40 PFSH Acute PFSH: Medical History Alcohol abuse 24 oz Smirnoff DVT (deep venous thrombosis) HTN (hypertension) Hypothyroid Lymphedema Surgical History H/O laminectomy Family History Other Cancer Hypertension Social History Smoking and tobacco/nicotine status: former use of tobacco/nicotine Alcohol intake: current Substance/Drug Use: current Caregiver/support person: Yes Lives independently: Yes Household members: none Housing: House Marital status: Single Vitals/I&O/Wt Last Vital Signs Temp 98.5 F 12/30/22 00:00 Pulse 86 12/30/22 11:12 Resp 24 H 12/30/22 15:37 BP 102/59 12/30/22 11:12 Pulse Ox 82 L 12/30/22 11:12 O2 Del Method Nasal Cannula 12/30/22 11:12 O2 Flow Rate 6 12/30/22 07:51 12/30/22 12/30/22 12/30/22 06:59 14:59 22:59 Intake Total 240 / 240 Balance 240 / 240 Weight last 48 hrs Weight 131.088 kg Physical Exam Narrative: Actively dying.? Eyes remain closed limited conversation.? Last oxygen was low 80s on 6 to 10 L.? Neurologic he is lethargic.? He will give a thumbs up or say yes or shake his head but limited conversation. Heart distant heart sounds normal S1-S2 without murmurs clicks gallops or rubs Lungs diminished breath sounds audible rhonchi today coughing with ice. Abdomen soft nontender appears distended.? Positive bowel sounds Extremities? He has trace to +1 edema of the lower extremities Urinary Catheter Management: Coleman: Cath Placed During This Visit: yes Reason for Continuing Indwelling Catheter: Accurate Measurement of Urinary Output in Critically Ill Patients Urinary Catheter Date of Insertion: 12/27/22 Urinary Catheter Time of Insertion: 09: Data 12/29/22 06:36 12/29/22 06:36 A&P Assessment and plan (1) Acute respiratory failure: (2) Shortness of breath at rest: (3) Generalized pain: (4) Dying care: (5) Admission for hospice care: Plan Comfort care order set. Hospice admission. Attestations Medical Necessity Statement*: Patient requires inpatient hospice admission due to drastic decline over the last 2 days. Increasing oxygen requirements and now wishing only for nasal cannula. Oxygen sats are in the upper 70s lower 80s. Patient requires constant nursing care, IV pain medications, control of secretions. Brother is working on arrangements for home for discharge in the next 1 to 2 days. Coding Level of Care Code Acute Code for [facility] Fwd Diagnoses Acute respiratory failure J96.00 Shortness of breath at rest R06.02 Generalized pain R52 Dying care Z51.5 Admission for hospice care Z51.5
[2022-12-30] MEDS: LORazepam 2 mg/mL INJ 1 mL IVP (20:19)
[2022-12-31] VITALS: BP 72/41; PULSE 94; RESP 19; TEMP 36.3; O2SAT 80
[2022-12-31 01:53] VITALS: RESP 20
[2022-12-31] MEDS: morphine 4 mg/mL SDV 1 mL IVP ×2 (01:53→09:35)
[2022-12-31] MEDS: LORazepam 2 mg/mL INJ 1 mL IVP ×2 (01:53→09:34)
[2022-12-31 04:00] VITALS: BP 64/37; PULSE 92; RESP 22; TEMP 36.9; O2SAT 81
[2022-12-31 07:44] VITALS: BP 83/52; O2SAT 79
[2022-12-31 09:35] VITALS: RESP 33
--- NOTE | 2022-12-31 12:04 | PC.SOCIAL ---
IMM Updated Updated pt's brother on IMM. No questions voiced. Provided pt a copy. Initialed, dated, & timed copy in chart.
--- NOTE | 2022-12-31 15:02 | P.DS_ITS ---
Discharge Providers Date of Admission: 12/30/2022 Date of Discharge: December 31, 2022 Attending Provider at Admission: Dar Peter DO Attending Provider at Discharge: Dar Peter DO Consults: None Primary Care Provider: LINH Grossman Diagnoses at Discharge Discharge Diagnosis (1) Acute respiratory failure: Status: Acute (2) Shortness of breath at rest: Status: Acute (3) Generalized pain: Status: Acute (4) Dying care: Status: Acute (5) Admission for hospice care: Status: Acute Reason for Visit Reason for Visit: dying Brief History: Campos Olivo is a 62 year old male who was found to have a lung mass with localized adenopathy and innumerable liver metastasis.? Patient was requiring high oxygenation.? Unfortunately patient was doing very poorly and would not be able to tolerate aggressive treatment or work-up.? End-of-life discussion ensued with Campos and his brother and they elected hospice.? Patient is clinically worsening and requiring IV pain medication secretion management and continuous nursing care.? He will be admitted to general inpatient hospice. Hospital Course Hospital Course Patient was placed on IV morphine and IV or oral Ativan for comfort. He was changed to nasal cannula for comfort. Arrangements were made for transportation home, to his brother Pedro's home. Patient is now comfortable and able to be discharged. Physical Exam Narrative: Actively dying.? Limited response. Heart distant heart sounds normal S1-S2 without murmurs clicks gallops or rubs Lungs diminished breath sounds audible rhonchi Abdomen soft nontender appears distended.? Positive bowel sounds Extremities? He has trace to +1 edema of the lower extremities Urinary Catheter Management: Coleman: Cath Placed During This Visit: yes Reason for Continuing Indwelling Catheter: Accurate Measurement of Urinary Output in Critically Ill Patients Urinary Catheter Date of Insertion: 12/27/22 Urinary Catheter Time of Insertion: 09:23 Discharge Data Studies Completed and Pending Completed Studies During Hospitalization Category Date Time Status CT abdomen pelvis w con* [id number] Stat Cat Scan 12/20/22 14:19 Completed CTA chest [CT angio chest PE protcl [id number]] Stat Cat Scan 12/29/22 05:40 Completed XR chest 1V portable [id number] Urgent Exams 12/20/22 11:11 Completed MR MRCP [id number] Routine MRI 12/22/22 08:47 Completed MR abdomen wo/w con* [id number] Routine MRI 12/22/22 08:47 [place] [id number] Urgent Ultrasound 12/20/22 18:23 Completed CV. echo complete* [id number] Routine Ultrasound 12/20/22 17:53 Completed US gall bladder [id number] Stat Ultrasound 12/20/22 13:00 Completed Radiology Impressions Chest X-Ray 12/20/22 11:11 IMPRESSION: 1. Mild pulmonary vascular congestion. 2. Small loculated effusion in the minor fissure of the right lung. Abdomen MRI 12/22/22 08:47 IMPRESSION: 1. The liver is enlarged, measuring 30 cm in length. There are innumerable well-circumscribed masses throughout the liver measuring up to 6 cm in diameter, consistent with diffuse hepatic metastases. 2. Trace perihepatic ascites noted. 3. No interval change from CT abdomen and pelvis dated 12/20/2022. COMMENTS: Consistent with the [employer]'s Incidental Findings Committee white paper (J Am Mary Kay Radiol 2018): Any incidental renal lesion less than 1 cm or classified as too small to characterize, or any incidental cystic renal lesion characterized as simple-appearing, is likely benign. No follow-up imaging is recommended for these lesions per consensus recommendations based on imaging criteria. ADDENDUM: 12/23/22 1658 A single set of images, series 801, labeled MRCP 3D are available. These images are nondiagnostic, and no comment can be made regarding the biliary system. Chest CTA 12/29/22 05:40 IMPRESSION: 1. Conglomerate right mediastinal/right hilar mass which encases and partially compresses the central right upper lobe bronchovascular structures. There is also extensive mediastinal and bilateral hilar lymphadenopathy. 2. Partial mucoid impaction of the right upper lobe bronchi. 3. COPD. Complete left lower lobe atelectasis. Mild right basilar dependent atelectasis. 4. Hepatic cirrhosis and hepatomegaly. Laboratory Results WBC 13.85 10^3/uL (3.29-11.43) H 12/29/22 06:36 Corrected WBC 13.1 10^3/cmm (4.8-10.8) H 12/29/22 06:36 RBC 4.12 10^6/uL (3.85-5.65) 12/29/22 06:36 Hgb 13.00 g/dL (11.27-16.99) 12/29/22 06:36 Hct 38.8 % (37-53) 12/29/22 06:36 MCV 94.2 fl (82-101) 12/29/22 06:36 MCH 31.6 pg (27-33) 12/29/22 06:36 MCHC 33.5 g/dL (30-55) 12/29/22 06:36 RDW 16.7 % (12.1-15.1) H 12/29/22 06:36 Plt Count 70 10^3/cmm (157-399) L 12/29/22 06:36 MPV 11.9 fL (7.4-10.4) H 12/29/22 06:36 Neut % (Auto) 80.6 % 12/28/22 04:10 Lymph % (Auto) Not Reportable 12/29/22 06:36 [place] % (Auto) Not Reportable 12/29/22 06:36 Eos % (Auto) 0.1 % 12/28/22 04:10 Baso % (Auto) 0.3 % 12/28/22 04:10 Neut # (Auto) 12.01 10^3/uL (1.8-7.7) H 12/28/22 04:10 Lymph # (Auto) Not Reportable 12/29/22 06:36 [place] # (Auto) Not Reportable 12/29/22 06:36 Eos # (Auto) 0.0 10^3/uL (0.0-0.8) 12/28/22 04:10 Baso # (Auto) 0.0 10^3/uL (0.0-0.1) 12/28/22 04:10 Nucleated RBC % (auto) 1.8 % 12/28/22 04:10 Total Counted 100 (0-100) 12/29/22 06:36 Atypical Lymphs % 0.0 % (0-5) 12/29/22 06:36 Absolute Neutrophils 12.7 10^3/cmm (1.4-6.5) H 12/29/22 06:36 Segmented Neutrophils 86 % 12/29/22 06:36 Abs Segm Neuts (Man) 11.9 10/cmm (1.6-7.1) H 12/29/22 06:36 Band Neutrophils 6.0 % 12/29/22 06:36 Abs Band Neuts (Man) 0.8 10^3/cmm (0.0-1.2) 12/29/22 06:36 Absolute Lymphocytes 0.3 10^3/cmm (1.2-3.4) L 12/29/22 06:36 Lymphocytes (Manual) 2 % 12/29/22 06:36 Monocytes (Manual) 2.0 % 12/29/22 06:36 Absolute Monocytes 0.3 10^3/cmm (0.1-0.6) 12/29/22 06:36 Eosinophils (Manual) 0 % 12/29/22 06:36 Absolute Eosinophils 0.0 10^3/cmm (0.0-0.7) 12/29/22 06:36 Basophils (Manual) 0.0 % 12/29/22 06:36 Absolute Basophils 0.0 10^3/cmm (0.0-0.2) 12/29/22 06:36 Metamyelocytes 2.0 % 12/29/22 06:36 Myelocytes 2.0 % 12/29/22 06:36 Nucleated RBCs 6.0 /100WBC (0-1) H 12/29/22 06:36 Nucleated RBCs # 0.3 /100WBC 12/28/22 04:10 Platelet Estimate Decreased (Normal) 12/29/22 06:36 Poikilocytosis Trace 12/20/22 11:25 Anisocytosis Trace 12/29/22 06:36 Peripher Smr Path Cons Sent for review 12/24/22 04:08 PT 13.90 SECONDS (12.1-14.9) 12/25/22 01:39 INR 1.04 (0.8-1.2) 12/25/22 01:39 Specimen Type Arterial 12/29/22 03:39 Sample Site Brachial, right 12/29/22 03:39 ABG pH 7.53 (7.35-7.45) H 12/29/22 03:39 ABG pCO2 41.1 mmHg (35-45) 12/29/22 03:39 ABG pO2 62.8 mmHg (80.0-100.0) L 12/29/22 03:39 ABG HCO3 34.4 mmol/L (22-26) H 12/29/22 03:39 ABG O2 Saturation 92.7 12/29/22 03:39 ABG Base Excess 10.7 mmol/L (-2.0-2.0) H 12/29/22 03:39 Vadim Test N/a 12/29/22 03:39 A-a O2 Gradient 4.8 mmHg (5-10) L 12/29/22 03:39 Hematocrit 40.4 % (42-52) L 12/29/22 03:39 Hgb O2 Saturation 91.5 % (95-100) L 12/29/22 03:39 Carboxyhemoglobin 0.6 %THgb (0.4-20.1) 12/29/22 03:39 Methemoglobin 0.7 % (0.4-1.5) 12/29/22 03:39 Total Hemoglobin 13.2 g/dL (14-18) L 12/29/22 03:39 Sodium 141.0 mmol/L (131-143) 12/29/22 03:39 Potassium 3.8 mmol/L (3.5-5.0) 12/29/22 03:39 Glucose 150.0 mg/dL (70-115) H 12/29/22 03:39 Ionized Calcium 1.1 mmol/L (1.1-1.4) 12/29/22 03:39 O2 Delivery Device Oxy mask 12/29/22 03:39 O2 Liters/Min 10.0 % 12/29/22 03:39 Industrial Economics Professor ID [email or web address] 12/29/22 03:39 Sodium 143 mmol/L (136-145) 12/29/22 06:36 Potassium 4.4 mmol/L (3.5-5.1) 12/29/22 06:36 Chloride 97 mmol/L (98-107) L 12/29/22 06:36 Carbon Dioxide 31 mmol/L (22-29) H 12/29/22 06:36 Anion Gap 19.4 (5-19) H 12/29/22 06:36 BUN 49 mg/dL (8-23) H 12/29/22 06:36 Creatinine 1.3 mg/dL (0.7-1.2) H 12/29/22 06:36 GFR Calculation 55.8 mL/min (90-130) L 12/29/22 06:36 Glucose 164 mg/dL (65-115) H 12/29/22 06:36 POC Glucose 171 mg/dL (70-110) H 12/29/22 16:28 Estimat Average Glucose 148 12/21/22 04:55 Hemoglobin A1c 6.8 % (4.0-6.0) H 12/21/22 04:55 Calculated Osmolality 313 mOsm/kg (285-295) H 12/29/22 06:36 Calcium 8.8 mg/dL (8.5-10.5) 12/29/22 06:36 Phosphorus 2.7 mg/dL (2.5-4.5) 12/28/22 04:10 Magnesium 3.3 mg/dL (1.7-2.3) H 12/28/22 04:10 Iron 96 ug/dL (59-158) 12/20/22 11:25 TIBC 184 mcg/dl 12/20/22 11:25 % Saturation 52.1 % (20-50) H 12/20/22 11:25 Unsat Iron Binding 88 ug/dL (112-347) L 12/20/22 11:25 Total Bilirubin 10.2 mg/dL (0.15-1.2) H* 12/29/22 06:36 GGT 1523 U/L (8-61) H 12/20/22 18:07 AST 151 U/L (0-40) H 12/29/22 06:36 ALT 134 U/L (0-41) H 12/29/22 06:36 Alkaline Phosphatase 316 U/L (40-130) H 12/29/22 06:36 Ammonia 53 umol/L (16-60) 12/20/22 14:05 Lactate Dehydrogenase 535 U/L (135-225) H 12/20/22 18:07 NT-Pro-B Natriuret Pep 397 pg/mL (0-125) H 12/20/22 11:25 Total Protein 5.5 g/dL (6.6-8.7) L 12/29/22 06:36 Albumin 2.8 g/dL (3.5-5.2) L 12/29/22 06:36 Globulin 2.7 g/dL (1.3-4.6) 12/29/22 06:36 Triglycerides 257 mg/dL (0-150) H 12/21/22 04:55 Cholesterol 209 mg/dL (0-200) H 12/21/22 04:55 LDL Cholesterol, Calc 129 mg/dL (50-129) 12/21/22 04:55 HDL Cholesterol 29 mg/dL (60-100) L 12/21/22 04:55 LDL/HDL Ratio 4.45 RATIO (0.00-3.22) H 12/21/22 04:55 Cholesterol/HDL Ratio 7.21 mg/dL (1.0-5.00) H 12/21/22 04:55 Tumor Marker AFP 2.3 ng/mL (0-8.3) 12/21/22 04:55 Tumor Marker HCG 1 mIU/mL (0-3) 12/21/22 04:55 Vitamin B12 716 pg/mL (232-1245) 12/20/22 11:25 Folate 3.5 ng/mL (4.5-32.2) L 12/21/22 04:55 Procalcitonin 76.29 ng/mL (0-0.5) H 12/20/22 11:25 TSH 0.52 uIU/mL (0.27-4.20) 12/20/22 11:25 Urine Color Brown (Yellow) A 12/20/22 13:49 Urine Appearance Sl hazy (CLEAR) A 12/20/22 13:49 Urine pH 5 (5-7) 12/20/22 13:49 Ur Specific [place] 1.015 (1.005-1.030) 12/20/22 13:49 Urine Protein 1+ (Negative) H 12/20/22 13:49 Urine Glucose (UA) Norm (Normal) 12/20/22 13:49 Urine Ketones 1+ (Negative) H 12/20/22 13:49 Urine Blood Trace (Negative) H 12/20/22 13:49 Urine Nitrate Negative (Negative) 12/20/22 13:49 Urine Bilirubin 3+ (Negative) H 12/20/22 13:49 Urine Urobilinogen 8 mg/dL (Negative) H 12/20/22 13:49 Ur Leukocyte Esterase Trace (Negative) H 12/20/22 13:49 Urine RBC 0-4 /hpf (0-2) H 12/20/22 13:49 Urine WBC 0-4 /hpf (0-5) H 12/20/22 13:49 Ur Squamous Epith Cells None /hpf (0-5) 12/20/22 13:49 Amorphous Sediment Not Reportable 12/20/22 13:49 Urine Bacteria Trace /hpf (NONE) 12/20/22 13:49 Ethyl Alcohol < 10 mg/dL (0-10) 12/20/22 11:25 Hepatitis A IgM Ab Non-reactive (Nonreactive) 12/20/22 11:25 Hep Bs Antigen Non-reactive (Nonreactive) 12/20/22 11:25 Hep Bs Antibody 5.5 (11.5-1000) L 12/20/22 11:25 Hep B Core Total Ab Non-reactive (Nonreactive) 12/20/22 11:25 Hepatitis C Antibody Non-reactive (Nonreactive) 12/20/22 11:25 HIV 1&2 Ab & HIV 1 Ag Non-reactive (Non-Reactiv) 12/20/22 11:25 HIV 1&2 Antibody Non-reactive (Non-Reactiv) 12/20/22 11:25 MRSA (PCR) Not detected (NOT DETECTED) 12/21/22 08:06 Vitals Last Vital Signs Temp 98.5 F 12/31/22 04:00 Pulse 92 12/31/22 04:00 Resp 33 H 12/31/22 09:35 BP 83/52 12/31/22 07:44 Pulse Ox 79 L 12/31/22 07:44 O2 Del Method Nasal Cannula 12/31/22 07:44 O2 Flow Rate 6 12/30/22 07:51 Discharge Plan Discharge Patient Disposition: Home Condition: Stable Prescriptions: New Isopto Tears 0.5 % Drops 2 drp eye-both Q2H PRN (Reason: Dry Eye(S)) Qty: 3 0RF Blistex Medicated 0.6-0.5-1.1-0.5 % Ointment 1 applic topical Q2H PRN (Reason: Dry Lips) Qty: 1 0RF Discontinued cyclobenzaprine 10 mg tablet 10 mg PO TID PRN (Reason: Muscle Spasm) levothyroxine 125 mcg capsule 125 mcg PO QAM lisinopril 20 mg tablet 20 mg PO QAM potassium chloride 20 mEq tablet extended release 20 meq PO QAM diphenhydramine-acetaminophen [Tylenol PM Extra Strength] 25-500 mg Tablet 2 tab PO QPM PRN (Reason: Pain) acetaminophen [Tylenol] 325 mg Capsule 650 mg PO QID PRN (Reason: Pain) albuterol sulfate 90 mcg/actuation HFA aerosol inhaler 2 inh INHALATION Q4H PRN (Reason: shortness of breath or wheezing) Qty: 18 0RF doxycycline hyclate 100 mg capsule 100 mg PO BID furosemide 20 mg tablet 20 mg PO QAM loratadine [Claritin] 10 mg Tablet 10 mg PO DAILY budesonide-formoterol [Symbicort] 160-4.5 mcg/actuation HFA aerosol inhaler 1 inh INHALATION BID Xarelto 20 mg tablet 20 mg PO QAM Discharge Orders: Discharge Order (Routine); Ordered 12/30/22 Ordered By: Dra Peter Other Ambulatory Orders: DME: Jamie (Order) Location: None Selected Ordered By: Darren López Referrals: Danielle Winston FNP [Primary Care Provider] - Discharge Diet: As Directed Discharge Activity: Bedrest Patient Instructions: [place] (Into the eye) (Isopto Carpine, [place]-HS, Vuity), Analgesic (On the skin) (Arctic Relief, Biofreeze Pain Relieving..., Hospice Care, Comfort Measures (GEN) Discharge Attestations Time Spent in Discharge Care*: less than 30 min Quality Metrics Clinical Quality Measures [ No reported AMI, CVA or VTE this stay] Coding Level of Care Code Acute Code for g Fwd Diagnoses Acute respiratory failure J96.00 Shortness of breath at rest R06.02 Generalized pain R52 Dying care Z51.5 Admission for hospice care Z51.5
--- NOTE | 2023-01-04 08:33 | P.PN_ITS ---
Subjective Subjective: No acute events. Laying comfortably in bed. Seen with brother at bedside. Denies any nausea, vomiting, headache. Has remained hemodynamically stable and afebrile. Lower limb swelling continues to go down. Blood work appreciated. Vitals/I&O/Wt Last Vital Signs Temp 98.5 F 12/31/22 04:00 Pulse 92 12/31/22 04:00 Resp 33 H 12/31/22 09:35 BP 83/52 12/31/22 07:44 Pulse Ox 79 L 12/31/22 07:44 O2 Del Method Nasal Cannula 12/31/22 07:44 O2 Flow Rate 6 12/30/22 07:51 Physical Exam Narrative: General: No acute distress, AO x3, icteric HEENT: PERRLA, pupils bilaterally equal and reactive Chest: Normal vesicular breath sounds, no added sounds, equal good air entry bilaterally CVS: S1-S2 regular, no murmurs, no tachycardia, no gallops, no rubs Abdomen: Soft, nontender, no organomegaly, bowel sounds present Neuro: No focal deficits, no facial deformity, AO x3, power 5/5 in all limbs Urinary Catheter Management: Coleman: Cath Placed During This Visit: yes Reason for Continuing Indwelling Catheter: Accurate Measurement of Urinary Output in Critically Ill Patients Urinary Catheter Date of Insertion: 12/27/22 Urinary Catheter Time of Insertion: 09: Data 12/29/22 06:36 12/29/22 06:36 A&P Assessment and plan (1) Anasarca: Most likely in setting of chronic liver disorder though patient does have mild hypoalbuminemia. Echocardiogram shows an EF of 70% with normal diastolic function, RVSP of 25 mmHg with no significant valvular abnormality Monitor electrolytes. Lasix oral 40 mg daily. Aldactone 25 mg twice daily. Acetazolamide stopped. Continue with lymphedema wraps. Out of bed to chair. Patient seems to be approaching his dry body weight. Fluid restriction up to 1500 cc. Strict input output charting. Daily weights. (2) Acute hypokalemia: Most likely in setting of diuresis. Continue with home dose of 40 mg orally. Replace 30 mmol of potassium phosphate which will replace both potassium and phosphorus. (3) Leukocytosis: With left shift. Infectious cause so far unlikely and not found. Patient does not have any ascites, UTI, chest x-ray does not show any pneumonia. Patient has remained hemodynamically stable and afebrile for last 24 hours while being off antibiotics. Follow-up blood cultures, MRSA swab. For now we will continue to hold off on antibiotics. Check peripheral smear. (4) Transaminitis: Patient does have history of chronic alcoholism. Most likely in setting of acute alcoholic hepatitis. Family does state patient grows his own CBD. Cannot rule out in setting of herbal product ingestion. Appreciate gallbladder ultrasound and CT abdomen pelvis results. No gallbladder or pancreatic pathology. Does have echogenic opacities in all the lobes of the liver. Appreciate MRI abdomen and MRCP results. Concerns for malignancy secondary to high circumscribed masses. Patient will most likely need a liver biopsy. Plan for colonoscopy as an outpatient. Repeat INR in a.m. HIV, hepatitis panel negative. Monitor daily for now. Child- Denson score-10 (5) DVT (deep venous thrombosis): Appreciate resolution of DVT on recent lower limb Doppler. Discontinue Xarelto. Switch to heparin 5000 every 12 hourly depending on the INR level. (6) Hyperbilirubinemia: (7) Hepatic dysfunction: (8) Supratherapeutic INR: (9) Liver masses: Plan Generalized weakness: Most likely in setting of hypokalemia along with extensive anasarca. PT evaluation. Hypothyroidism Obesity Full code Cardiac diet, fluid restriction Switch to 5000 every 12 heparin twice daily for DVT prophylaxis. Protonix for PUD prophylaxis Plan for today: Continue with IV diuresis with Lasix, oral acetazolamide.? Continue with spironolactone 25 mg twice daily.? Monitor electrolytes.? Replete Potassium Lymphedema wrap with physical therapy.? Appreciate physical therapy recommendations. Out of bed to chair. No DVT seen on lower limb Dopplers.? Discussed in detail with the patient.? He is agreeable to stop Xarelto and switch to prophylactic heparin.? Start on heparin 5000 every 12 hourly. Moreover patient has supratherapeutic INR. Supra therapeutic INR.? Patient does not have any episodes of bleeding or decline in hemoglobin. Will give 1 dose of oral vitamin K and repeat INR in a.m. Medical Reconciliation done for hepatotoxic drugs. Continue with lisinopril 20 mg oral daily. Plan for MRCP MRI abdomen today for further evaluation of hepatic mass and possibility of gallbladder pathology. Discussed in detail with surgical team.? Plan to do as an outpatient. Discharge plan: Discussed in detail with patient at bedside.? Options discussed about home with home health versus SNF placement.? Patient is agreeable for home with home health.? Plan to discharge in next 24 hours if patient remains he modynamically stable on oral diuresis. Discussed in detail with patient and patient's brother and other family members at bedside.? All the questions were answered. Attestations Medical Necessity Statement*: Requires further hospitalization for management of anasarca, acute hepatic injury Diagnoses Anasarca R60.1 Acute hypokalemia E87.6 Leukocytosis D72.829 Transaminitis R74.01 DVT (deep venous thrombosis) I82.409 Hyperbilirubinemia E80.6 Hepatic dysfunction K76.9 Supratherapeutic INR R79.1 Liver masses R16.0
== END 2022-12-31 15:22 | disposition expired | DRG 436 ==
LOC: ER 15:12 → CSU 17:52
PROVIDERS: Internal Medicine; Physician Assistant; Surgery; Admitting Provider Student in an Organized Health Care Education/Training Program; Emergency Provider Family Medicine; PCP Nurse Practitioner Family; Visit Provider Internal Medicine
PROC: 0DJD8ZZ Inspection of Lower Intestinal Tract, Via Natural or Artificial Opening Endoscopic (ICD-10-PCS; CPT 45378; principal; 2022-12-27 12:00)
DX: C78.7 Secondary malignant neoplasm of liver and intrahepatic bile duct (principal); I47.20 Ventricular tachycardia, unspecified; T17.590A Other foreign object in bronchus causing asphyxiation, initial encounter; J98.11 Atelectasis; C80.1 Malignant (primary) neoplasm, unspecified; K70.40 Alcoholic hepatic failure without coma; R59.0 Localized enlarged lymph nodes; Z51.5 Encounter for palliative care; J44.9 Chronic obstructive pulmonary disease, unspecified; K70.30 Alcoholic cirrhosis of liver without ascites; F10.10 Alcohol abuse, uncomplicated; Z79.01 Long term (current) use of anticoagulants; I11.0 Hypertensive heart disease with heart failure; I50.9 Heart failure, unspecified; Z86.718 Personal history of other venous thrombosis and embolism; Z77.120 Contact with and (suspected) exposure to mold (toxic); E03.9 Hypothyroidism, unspecified; E87.6 Hypokalemia; E66.9 Obesity, unspecified; Z68.38 Body mass index [BMI] 38.0-38.9, adult; R79.1 Abnormal coagulation profile; X58.XXXA Exposure to other specified factors, initial encounter
CPT/HCPCS: 36415; 36416; 36600; 45378; 51702; 71045; 71275; 74177; 74181; 74183; 76705; 80048; 80051; 80053; 80061; 80307; 80503; 81001; 82105; 82140; 82330; 82607; 82746; 82805; 82962; 82977; 83036; 83540; 83550; 83615; 83735; 83880; 84100; 84145; 84443; 84702; 85007; 85025; 85610; 86705; 86706; 86709; 86803; 87040; 87340; 87641; 87806; 93005; 93306; 93970; 94640; 94664; 96372; 96374; 96375; 96376; 97110; 97124; 97161; 97167; 97530; 99285; A9270; A9577; C9113; J0696; J1170; J1644; J1815; J1940; J2060; J2270; J2371; J2543; J2704; J3430; J3480; J7030; Q9967